=== PATIENT | male | born 1970 | race Hispanic/Latino ===

== ENCOUNTER 2017-11-19 18:12 | Inpatient (IN) | payer MEDICARE ==
[~2017-11-19] VITALS: Ht 188 cm; Wt 124.0 kg
[~2017-11-19 18:12] MED LIST: ACETAMINOPHEN325 M1 PO; ARTIFICIAL TEAR15 ML OP; ASPIRIN ENTERI325 MG PO; CRESTOR10 MG PO; CYMBALTA30 MG PO; DIFLUNISAL500 MG PO; FENOFIBRATE145 MG PO; GABAPEN; GABAPENTIN300 MG PO; HUMALOG100 UNIT/3 SQ; IBUPROFEN400 MG PO; LEVEMIR100 UNIT/1; LEVEMIR100 UNIT/1 SQ; METFORMIN HCL500 MG PO; METOPROLOL SUCC50 MG PO; NOVOLIN 70100 UNITS/; PROTONIX40 MG/ML PO; VALIUM5 MG PO; ZOFRAN ODT4 MG SL; antara PO
[2017-11-19] MEDS ORDERED: ASPIRIN 81 MG CHEW TAB PO ONE (19:15)
[2017-11-19] MEDS ORDERED: DIATRIZOATE MEGL/DIATRIZOA SOD 120 ML BTL PO ONE (19:19)
--- NOTE | 2017-11-19 19:42 | Diagnostic Imaging Report ---
EXAMINATION: CHEST 2 VIEWS INDICATION: Pneumonia and chest pain \S\ORDER PLACED BY MD \S\[id number] \S\0 \S\Y COMPARISON: None FINDINGS: PA and lateral views TUBES and LINES: None. LUNGS: Lungs are well inflated. Patchy airspace opacities remain in the right upper and left lower lobes, new since 01/24/2017. No pulmonary edema. PLEURA: No pleural effusion or pneumothorax. HEART AND MEDIASTINUM: The cardiomediastinal silhouette is unremarkable.. The thoracic aorta is unremarkable. The pulmonary arteries are normal in caliber. BONES AND SOFT TISSUES: Multilevel degenerative changes of the thoracic spine. Soft tissues are unremarkable. UPPER ABDOMEN: No free air under the diaphragm. Cholecystectomy clips. IMPRESSION: Multifocal consolidation suggestive of pneumonia, no present on 01/24/2017. Recommend further evaluation with chest x-ray in 4 weeks. Signed by: Dr. Francesca Zamarripa M.D. on 11/19/2017 7:38 PM
[2017-11-20] MEDS ORDERED: AZITHROMYCIN 500MG/SOD CHL 0.9% 250ML BAG IV SCH (00:30)
[2017-11-20 00:31] LABS: BASOPHILS % 0.4 % (0.0-1.0); EOSINOPHILS # (AUTO) 0.2 (0.0-0.4); EOSINOPHILS % 2.8 % (0.0-6.0); HEMATOCRIT 44.3 % (38.2-49.6); HEMOGLOBIN 14.8 g/dL (14.0-18.0); LYMPHOCYTES # (AUTO) 2.5 (1.0-3.2); LYMPHOCYTES % 32.3 % (18.0-39.1); MEAN CORPUSCULAR HEMOGLOBIN 30.1 pg (28-32); MEAN CORPUSCULAR HGB CONC 33.4 g/dL (31-35); MONOCYTES # (AUTO) 0.9 (0.2-0.8); NEUTROPHILS # (AUTO) 4.1 (2.1-6.9); NEUTROPHILS % 52.7 % (38.7-80.0); PLATELET COUNT 199 x10e3/uL (140-360); RED BLOOD COUNT 4.92 x10e6/uL (4.3-5.7); RED CELL DISTRIBUTION WIDTH 12.7 % (11.7-14.4)
[2017-11-20 00:43] LABS: INR 0.81; PROTHROMBIN TIME 11.6 seconds (11.9-14.5)
[2017-11-20 00:44] LABS: PARTIAL THROMBOPLASTIN TIME 26.9 seconds (23.8-35.5)
[2017-11-20] MEDS: CEFTRIAXONE SOD 1 GM VIAL IV SCH ×2 (00:45→12:54)
[2017-11-20] MEDS ORDERED: MAGNESIUM/ALUMINUM/SIMETHICONE 30 ML UDC PO ONE (00:45)
[2017-11-20 00:55] LABS: ALANINE AMINOTRANSFERASE 31 IU/L (0-55); ALBUMIN 4.1 g/dL (3.5-5.0); ALBUMIN/GLOBULIN RATIO 0.9 (0.8-2.0); ALKALINE PHOSPHATASE 104 IU/L (40-150); AMYLASE 115 U/L (25-125); BLOOD UREA NITROGEN 18 mg/dL (7-26); BUN/CREATININE RATIO 20 (6-25); CALCIUM 9.8 mg/dL (8.4-10.2); CARBON DIOXIDE 24 mmol/L (22-29); CHLORIDE 101 mmol/L (98-107); CREATINE KINASE 177 IU/L (30-200); CREATININE, SERUM 0.91 mg/dL (0.72-1.25); EST GLOMERULAR FILTRATION RATE > 60 ML/MIN (60-); GLUCOSE 173 mg/dL (74-118); LIPASE 45 U/L (8-78); SODIUM 135 mmol/L (136-145)
[2017-11-20] MEDS: AZITHROMYCIN 500MG/NS 250 ML 250 ML IV SCH (01:00)
[2017-11-20 01:01] LABS: TROPONIN I 0.007 ng/mL (0-0.300)
[2017-11-20] MEDS ORDERED: SODIUM CHLORIDE 0.9% 50ML 50 ML ONE (01:17)
[2017-11-20] MEDS ORDERED: IOPAMIDOL 370 MG/ML 200 ML INFUS..BTL INJ ONE (01:18)
[2017-11-20] MEDS ORDERED: MORPHINE SULFATE 2 MG/ML SYR ONE ×3 (01:47→16:10)
[2017-11-20] MEDS: ONDANSETRON HCL INJ 2 MG/ML VIAL IV PRN ×3 (01:52→16:20)
[2017-11-20] MEDS: MORPHINE SULFATE 4 MG/ML SYR IV PRN ×3 (01:52→16:19)
--- NOTE | 2017-11-20 01:53 | Diagnostic Imaging Report ---
EXAM: CT ABDOMEN AND PELVIS with IV CONTRAST DATE: 11/20/2017 12:05 AM Time stamp on Exam: 0120 hours INDICATION: Right-sided abdominal pain for 6 weeks COMPARISON: None TECHNIQUE: The abdomen and pelvis were scanned using a multidetector helical scanner. Coronal and sagittal reformations were obtained. Routine protocol performed. IV Contrast: 100 cc Isovue-370 Oral Contrast: Gastrografin CTDIvol has been reviewed. It is below the limits set by the Radiation Protocol Committee (RPC). FINDINGS: LOWER THORAX: No consolidations LIVER: No masses BILIARY: Cholecystectomy. No ductal dilation. SPLEEN: No masses PANCREAS: No masses ADRENALS: No nodules KIDNEYS: Symmetric perfusion. No enhancing masses. No hydronephrosis. GI TRACT: No distention, wall thickening or evidence of obstruction. Surgical changes of small bowel resection. Neither a normal nor abnormal appendix is identified. VESSELS: Inferior vena cava filter. 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 PERITONEUM/RETROPERITONEUM: No free air or fluid LYMPH NODES: No lymphadenopathy REPRODUCTIVE ORGANS: Unremarkable BLADDER: Unremarkable SOFT TISSUES: Small fat-containing right inguinal hernia. Superficial subcutaneous fat stranding and skin thickening with foci of air anterior abdomen consistent with injection sites. BONES: No suspicious bone lesions. IMPRESSION: No acute findings in the CT of the abdomen or pelvis. No bowel obstruction. Signed by: Dr. Yelitza Mckeon M.D. on 11/20/2017 1:49 AM
[2017-11-20] MEDS: SODIUM CHLORIDE 0.9% 1000ML 1,000 ML IV SCH ×2 (02:40→12:54)
[2017-11-20] MEDS ORDERED: DEXTROSE 50% SYRINGE 50 ML IV PRN (13:00)
[2017-11-20] MEDS ORDERED: INSULIN REGULAR, HUMAN 100 UNIT/1 ML 3ML VIAL ONE (13:13)
[2017-11-20] MEDS: INSULIN REGULAR, HUMAN 100 UNIT/1 ML 3ML VIAL SQ SCH ×2 (13:29→16:59)
[2017-11-20] MEDS: PANTOPRAZOLE SOD 40 MG TABEC PO SCH ×2 (16:15→18:00)
[2017-11-20] MEDS: GUAIFENESIN 600MG/DEXTROMETHORPHAN 30MG TABSR PO SCH (16:57)
[2017-11-20] MEDS: OSELTAMIVIR PHOSPHATE 75 MG CAP PO SCH (16:58)
[2017-11-20] MEDS: GABAPENTIN 300 MG CAP PO SCH (16:58)
[2017-11-20] MEDS: ENOXAPARIN SOD INJ 40 MG/0.4 ML SYR SC SCH (16:58)
[2017-11-20] MEDS: METOPROLOL SUCCINATE 50 MG TAB XL PO SCH (16:58)
[2017-11-20] MEDS: METFORMIN HCL 500 MG TAB PO SCH (16:58)
[2017-11-20 17:52] VITALS: BP 147/96
[2017-11-20] MEDS: ZIPRASIDONE 20 MG CAP PO SCH (18:00)
[2017-11-20 18:02] VITALS: BP 147/96
[2017-11-20] MEDS ORDERED: MORPHINE SULFATE 5 MG/ML VIAL IV PRN (18:15)
[2017-11-20 18:23] VITALS: BP 147/96
--- NOTE | 2017-11-20 18:25 | History and Physical ---
PRIMARY CARE PROVIDER: Dr. Duarte Rushing. CHIEF COMPLAINT: Malaise and productive hacking cough as well as some epigastric abdominal pain. HISTORY OF PRESENT ILLNESS: Mr. Carrillo is a 47 -year-old gentleman who has been having a cough for about a week now with some sputum production, some general malaise, some shortness of breath with exertion. He has also developed some epigastric and right flank pain that is superficial and palpable, possibly related to coughing. He denies any fever or chills. No weight loss. REVIEW OF SYSTEMS: Denies fever chills or weight loss. Denies sinus congestion or sore throat. Denies chest pain or palpitations. He has some shortness of breath and productive cough. He complains of some epigastric pain. No nausea, vomiting, diarrhea or melena. He denies dysuria but has some right flank pain. He denies rash or pruritus. He denies bleeding or bruising. Denies joint pain or swelling. Denies headache, vertigo or loss of consciousness. Denies depression, agitation, homicidal or suicidal ideation. PAST MEDICAL HISTORY: Significant for longstanding hypertension. He had a myocardial infarction and had angioplasty and stent placement for coronary artery disease in 2008. He has longstanding type 2 diabetes. He also has bipolar disorder. REGULAR MEDICATIONS: Aspirin daily. Fenofibrate 200 mg daily. Gabapentin 600 mg twice a day. Metformin 1000 mg twice a day. Metoprolol 100 mg twice a day. Protonix 40 mg before breakfast. Lantus or Levemir 70 units at bedtime and Humalog 8-12 units a.c. and nightly on sliding scale. Geodon 60 mg daily. PAST SURGICAL HISTORY: Coronary stent placement, only surgery he admits to. He denies any other surgery. ALLERGIES: NO KNOWN DRUG ALLERGIES. FAMILY HISTORY: Significant for hypertension and diabetes. SOCIAL HISTORY: . Citizen Of [place] is his primary language. He does not smoke, drink or use illegal drugs. He is generally independently functioning. PHYSICAL EXAM: PSYCHIATRIC: He is alert and oriented times 3 with normal mood and affect. CONSTITUTIONAL: He has a normal body habitus. Is in no acute distress. VITAL SIGNS: Blood pressure 131/75. Pulse 86 and regular. Respiratory rate 16. O2 sat 95%. Temperature 98.9. HEENT: Head is atraumatic. His eyes are anicteric with clear conjunctivae. Ears and nares are without erythema or discharge. Oropharynx is clear. NECK: Is supple with no mass or thyromegaly. LYMPHATIC SYSTEM: He has no palpable cervical, axillary or inguinal adenopathy. CARDIOVASCULAR: His heart has a regular rate and rhythm without murmur or extra heart sounds. He has no carotid bruit. He has no peripheral edema. Has palpable dorsal pedal pulses. RESPIRATORY: Clear to auscultation and percussion with normal respiratory effort. GASTROINTESTINAL: Abdomen is soft without organomegaly, masses or tenderness. Normal bowel sounds present. He has some tenderness in the right flank, but it is superficial, musculoskeletal probably from coughing. CUTANEOUS: His skin is warm and dry to touch with no rash or skin breakdown. MUSCULOSKELETAL: Joints are normal alignment without erythema or swelling. He has no calf tenderness. NEUROLOGIC: Exam is nonfocal with intact cranial nerves and no motor or sensory deficits. DIAGNOSTIC STUDIES: Chest x-ray shows bilateral upper lobe infiltrates and consolidations and is read as bilateral multifocal pneumonia. CT scan the abdomen is completely normal with no acute disease. Lactic acid level 13.2. His chemistry shows normal electrolytes. CO2 24. Creatinine 0.91. BUN 18. Glucose is 173. Calcium is 9.8. Amylase 115. Lipase 45. Transaminases, bilirubin and alk phos are normal. CBC shows a white count of 7.84 with a normal differential. Hemoglobin 14.8, hematocrit 44.3 and platelet count 199,000. IMPRESSION AND PLAN 1. Bilateral multifocal pneumonia. The patient has been started on IV Zithromax and Rocephin along with nebulizers and guaifenesin and p.o. Tamiflu. 2. For hypertension the patient will continue his metoprolol and aspirin. His hypertension is complicated by coronary artery disease. Will continue metoprolol and aspirin. 3. Type 2 diabetes. Will continue his metformin plus twice daily Levemir and sliding scale insulin. 4. For bipolar disorder will continue his Geodon and some Ativan at bedtime. 5. For prophylaxis, the patient will be on Lovenox for DVT prophylaxis and Protonix for GI prophylaxis. Job#: [id number]
[2017-11-20] MEDS ORDERED: FENOFIBRATE 145 MG TAB PO SCH (21:00)
[2017-11-20] MEDS: FENOFIBRATE 200 MG PO SCH (21:00)
[2017-11-20] MEDS ORDERED: LORAZEPAM INJ 2 MG/ML VIAL IV SCH (21:00)
[2017-11-20 21:01] VITALS: BP 130/83
[2017-11-20] MEDS: INSULIN DETEMIR 100 UNIT/ML PEN SQ SCH (21:50)
[2017-11-21] VITALS (8 sets, daily range): BP systolic 112–138; BP diastolic 66–83
[2017-11-21] MEDS: CEFTRIAXONE SOD 1 GM VIAL IV SCH ×2 (00:11→12:00)
[2017-11-21] MEDS: GUAIFENESIN 600MG/DEXTROMETHORPHAN 30MG TABSR PO SCH ×4 (00:11→17:21)
[2017-11-21] MEDS: AZITHROMYCIN 500MG/NS 250 ML 250 ML IV SCH (00:27)
[2017-11-21 03:01] LABS: BILIRUBIN,URINE NEGATIVE (NEGATIVE); KETONES,URINE NEGATIVE (NEGATIVE); LEUKOCYTE ESTERASE ,URINE NEGATIVE (NEGATIVE); NITRITE,URINE NEGATIVE (NEGATIVE); PROTEIN,URINE DIPSTICK NEGATIVE (NEGATIVE); URINE UROBILINOGEN 0.2 mg/dL (0.2 - 1)
[2017-11-21 03:02] LABS: CLARITY,URINE CLEAR (CLEAR); COLOR,URINE YELLOW (YELLOW)
[2017-11-21] MEDS: ONDANSETRON HCL INJ 2 MG/ML VIAL IV PRN (03:02)
[2017-11-21 03:10] LABS: WBC,URINE (MAN) 0-5 /HPF (0-5)
[2017-11-21 03:11] LABS: BACTERIA,URINE RARE /HPF; EPITHELIAL CELLS,URINE RARE /LPF
[2017-11-21] MEDS: SODIUM CHLORIDE 0.9% 1000ML 1,000 ML IV SCH (03:49)
--- NOTE | 2017-11-21 05:44 | Diagnostic Imaging Report ---
EXAM: CHEST SINGLE (PORTABLE), AP 1 view DATE: 11/21/2017 5:00 AM Time stamp on exam: 0513 hours INDICATION: Pneumonia COMPARISON: PA and lateral view of the chest November 19, 2017 FINDINGS: LINES/TUBES: None LUNGS: Improved aeration of the lungs. Persistent vascular congestion. PLEURA: No effusions or pneumothorax. HEART AND MEDIASTINUM: Stable appearance. BONES AND SOFT TISSUES: No acute findings. IMPRESSION: Resolving multifocal pneumonia. Signed by: Dr. Yelitza Mckeon M.D. on 11/21/2017 5:41 AM
[2017-11-21] MEDS: INSULIN REGULAR, HUMAN 100 UNIT/1 ML 3ML VIAL SQ SCH ×4 (07:30→21:30)
[2017-11-21] MEDS: PANTOPRAZOLE SOD 40 MG TABEC PO SCH (07:30)
[2017-11-21 07:38] LABS: BASOPHILS % 0.5 % (0.0-1.0); EOSINOPHILS # (AUTO) 0.1 (0.0-0.4); EOSINOPHILS % 1.3 % (0.0-6.0); HEMATOCRIT 43.8 % (38.2-49.6); HEMOGLOBIN 14.1 g/dL (14.0-18.0); LYMPHOCYTES # (AUTO) 1.7 (1.0-3.2); LYMPHOCYTES % 28.3 % (18.0-39.1); MEAN CORPUSCULAR HEMOGLOBIN 29.7 pg (28-32); MEAN CORPUSCULAR HGB CONC 32.2 g/dL (31-35); MEAN CORPUSCULAR VOLUME 92.4 fL (81-99); MONOCYTES # (AUTO) 0.6 (0.2-0.8); NEUTROPHILS # (AUTO) 3.6 (2.1-6.9); NEUTROPHILS % 59.4 % (38.7-80.0); PLATELET COUNT 205 x10e3/uL (140-360); RED BLOOD COUNT 4.74 x10e6/uL (4.3-5.7); RED CELL DISTRIBUTION WIDTH 12.7 % (11.7-14.4)
[2017-11-21 07:58] LABS: ALANINE AMINOTRANSFERASE 26 IU/L (0-55); ALBUMIN 3.3 g/dL (3.5-5.0); ALBUMIN/GLOBULIN RATIO 0.8 (0.8-2.0); ALKALINE PHOSPHATASE 90 IU/L (40-150); ANION GAP 13.5 mmol/L (8-16); BLOOD UREA NITROGEN 15 mg/dL (7-26); BUN/CREATININE RATIO 14 (6-25); CALCIUM 8.9 mg/dL (8.4-10.2); CARBON DIOXIDE 24 mmol/L (22-29); CHLORIDE 104 mmol/L (98-107); CREATININE, SERUM 1.07 mg/dL (0.72-1.25); EST GLOMERULAR FILTRATION RATE > 60 ML/MIN (60-); GLUCOSE 315 mg/dL (74-118); MAGNESIUM 1.9 MG/DL (1.3-2.1); POTASSIUM 4.5 mmol/L (3.5-5.1); SODIUM 137 mmol/L (136-145)
[2017-11-21] MEDS: METFORMIN HCL 500 MG TAB PO SCH ×2 (08:00→16:19)
[2017-11-21 08:19] LABS: THYROID STIMULATING HORMONE 0.864 uIU/mL (0.350-4.940)
[2017-11-21] MEDS: GABAPENTIN 300 MG CAP PO SCH ×2 (09:00→16:19)
[2017-11-21] MEDS: OSELTAMIVIR PHOSPHATE 75 MG CAP PO SCH ×2 (09:00→16:19)
[2017-11-21] MEDS: INSULIN DETEMIR 100 UNIT/ML PEN SQ SCH ×2 (09:00→21:30)
[2017-11-21] MEDS: ASPIRIN 325 MG TAB EC PO SCH (09:00)
[2017-11-21] MEDS: METOPROLOL SUCCINATE 50 MG TAB XL PO SCH ×2 (09:00→16:19)
[2017-11-21] MEDS: ZIPRASIDONE 20 MG CAP PO SCH (09:00)
[2017-11-21] MEDS: LORAZEPAM INJ 2 MG/ML VIAL IV PRN ×2 (09:36→21:58)
[2017-11-21] MEDS: ENOXAPARIN SOD INJ 40 MG/0.4 ML SYR SC SCH (16:20)
[2017-11-21] MEDS: FENOFIBRATE 200 MG PO SCH (21:00)
[2017-11-22] VITALS (8 sets, daily range): BP systolic 125–175; BP diastolic 6–104
[2017-11-22] MEDS: CEFTRIAXONE SOD 1 GM VIAL IV SCH ×2 (00:04→12:00)
[2017-11-22] MEDS: GUAIFENESIN 600MG/DEXTROMETHORPHAN 30MG TABSR PO SCH ×4 (00:04→17:33)
[2017-11-22] MEDS: AZITHROMYCIN 500MG/NS 250 ML 250 ML IV SCH (00:30)
[2017-11-22] MEDS ORDERED: LORAZEPAM INJ 2 MG/ML VIAL IV ONE (00:45)
[2017-11-22] MEDS ORDERED: PANTOPRAZOLE 40 MG 10ML VIAL IV STA (01:01)
[2017-11-22] MEDS: PANTOPRAZOLE 40 MG 10ML VIAL IV SCH ×2 (01:15→13:15)
[2017-11-22] MEDS: HYDROCODONE/APAP 5MG-325MG TAB PO PRN ×2 (02:30→15:54)
[2017-11-22] MEDS ORDERED: ZIPRASIDONE 20 MG VIAL IM STA (04:40)
[2017-11-22] MEDS: INSULIN REGULAR, HUMAN 100 UNIT/1 ML 3ML VIAL SQ SCH ×4 (07:30→21:21)
[2017-11-22] MEDS: INSULIN DETEMIR 100 UNIT/ML PEN SQ SCH ×2 (07:44→21:22)
[2017-11-22] MEDS: METFORMIN HCL 500 MG TAB PO SCH ×2 (08:00→17:00)
[2017-11-22 08:35] LABS: BASOPHILS % 0.5 % (0.0-1.0); EOSINOPHILS # (AUTO) 0.1 (0.0-0.4); EOSINOPHILS % 1.7 % (0.0-6.0); HEMATOCRIT 41.6 % (38.2-49.6); HEMOGLOBIN 13.8 g/dL (14.0-18.0); LYMPHOCYTES % 30.5 % (18.0-39.1); MEAN CORPUSCULAR HGB CONC 33.2 g/dL (31-35); MEAN CORPUSCULAR VOLUME 90.4 fL (81-99); MONOCYTES # (AUTO) 0.7 (0.2-0.8); MONOCYTES % 11.1 % (4.4-11.3); NEUTROPHILS # (AUTO) 3.7 (2.1-6.9); NEUTROPHILS % 55.6 % (38.7-80.0); PLATELET COUNT 179 x10e3/uL (140-360); RED CELL DISTRIBUTION WIDTH 12.4 % (11.7-14.4)
[2017-11-22] MEDS: ASPIRIN 325 MG TAB EC PO SCH (09:00)
[2017-11-22] MEDS: METOPROLOL SUCCINATE 50 MG TAB XL PO SCH ×2 (09:00→17:00)
[2017-11-22] MEDS: GABAPENTIN 300 MG CAP PO SCH ×2 (09:00→17:00)
[2017-11-22] MEDS: OSELTAMIVIR PHOSPHATE 75 MG CAP PO SCH ×2 (09:00→17:00)
[2017-11-22 10:57] LABS: BLOOD UREA NITROGEN 14 mg/dL (7-26); BUN/CREATININE RATIO 18 (6-25); CARBON DIOXIDE 24 mmol/L (22-29); CHLORIDE 103 mmol/L (98-107); CREATININE, SERUM 0.79 mg/dL (0.72-1.25); EST GLOMERULAR FILTRATION RATE > 60 ML/MIN (60-); GLUCOSE 202 mg/dL (74-118); SODIUM 137 mmol/L (136-145)
[2017-11-22] MEDS: LORAZEPAM INJ 2 MG/ML VIAL IV PRN ×2 (12:05→21:45)
[2017-11-22] MEDS: ONDANSETRON HCL INJ 2 MG/ML VIAL IV PRN ×2 (16:00→20:02)
[2017-11-22] MEDS: FLUTICASONE PROPIONATE NASAL SPRAY NS SCH (17:00)
[2017-11-22] MEDS: ENOXAPARIN SOD INJ 40 MG/0.4 ML SYR SC SCH (17:00)
[2017-11-22] MEDS: MORPHINE SULFATE 2 MG/ML SYR IV PRN (20:11)
[2017-11-22] MEDS: FENOFIBRATE 200 MG PO SCH (21:00)
[2017-11-22] MEDS: ZIPRASIDONE 20 MG CAP PO SCH (21:18)
[2017-11-23] VITALS (7 sets, daily range): BP systolic 124–184; BP diastolic 58–95
[2017-11-23] MEDS: GUAIFENESIN 600MG/DEXTROMETHORPHAN 30MG TABSR PO SCH ×4 (00:17→17:46)
[2017-11-23] MEDS: CEFTRIAXONE SOD 1 GM VIAL IV SCH ×2 (00:17→12:26)
[2017-11-23] MEDS: PANTOPRAZOLE 40 MG 10ML VIAL IV SCH ×2 (01:00→12:26)
[2017-11-23] MEDS: AZITHROMYCIN 500MG/NS 250 ML 250 ML IV SCH (01:36)
[2017-11-23 07:06] LABS: BASOPHILS # (AUTO) 0.1 (0.0-0.1); BASOPHILS % 0.7 % (0.0-1.0); EOSINOPHILS # (AUTO) 0.3 (0.0-0.4); EOSINOPHILS % 4.3 % (0.0-6.0); HEMATOCRIT 41.2 % (38.2-49.6); HEMOGLOBIN 13.8 g/dL (14.0-18.0); LYMPHOCYTES # (AUTO) 2.3 (1.0-3.2); LYMPHOCYTES % 34.5 % (18.0-39.1); MEAN CORPUSCULAR HEMOGLOBIN 30.6 pg (28-32); MEAN CORPUSCULAR HGB CONC 33.5 g/dL (31-35); MEAN CORPUSCULAR VOLUME 91.4 fL (81-99); MONOCYTES # (AUTO) 0.7 (0.2-0.8); MONOCYTES % 11.1 % (4.4-11.3); NEUTROPHILS # (AUTO) 3.3 (2.1-6.9); NEUTROPHILS % 48.8 % (38.7-80.0); PLATELET COUNT 187 x10e3/uL (140-360); RED BLOOD COUNT 4.51 x10e6/uL (4.3-5.7); RED CELL DISTRIBUTION WIDTH 12.5 % (11.7-14.4)
[2017-11-23 07:52] LABS: ANION GAP 14.4 mmol/L (8-16); BLOOD UREA NITROGEN 13 mg/dL (7-26); BUN/CREATININE RATIO 15 (6-25); CALCIUM 9.2 mg/dL (8.4-10.2); CARBON DIOXIDE 24 mmol/L (22-29); CHLORIDE 102 mmol/L (98-107); CREATININE, SERUM 0.85 mg/dL (0.72-1.25); EST GLOMERULAR FILTRATION RATE > 60 ML/MIN (60-); GLUCOSE 264 mg/dL (74-118); POTASSIUM 4.4 mmol/L (3.5-5.1); SODIUM 136 mmol/L (136-145)
[2017-11-23] MEDS: INSULIN REGULAR, HUMAN 100 UNIT/1 ML 3ML VIAL SQ SCH ×4 (08:00→21:30)
[2017-11-23] MEDS: METFORMIN HCL 500 MG TAB PO SCH ×2 (09:00→17:44)
[2017-11-23] MEDS: METOPROLOL SUCCINATE 50 MG TAB XL PO SCH ×2 (09:17→17:46)
[2017-11-23] MEDS: GABAPENTIN 300 MG CAP PO SCH ×2 (09:17→17:44)
[2017-11-23] MEDS: OSELTAMIVIR PHOSPHATE 75 MG CAP PO SCH ×2 (09:17→18:01)
[2017-11-23] MEDS: FLUTICASONE PROPIONATE NASAL SPRAY NS SCH ×2 (09:17→17:44)
[2017-11-23] MEDS: ASPIRIN 325 MG TAB EC PO SCH (09:17)
[2017-11-23] MEDS: INSULIN DETEMIR 100 UNIT/ML PEN SQ SCH ×2 (09:18→21:30)
[2017-11-23] MEDS: LORAZEPAM INJ 2 MG/ML VIAL IV PRN ×2 (10:45→21:30)
[2017-11-23] MEDS: MORPHINE SULFATE 2 MG/ML SYR IV PRN ×3 (10:45→20:32)
[2017-11-23] MEDS: ONDANSETRON HCL INJ 2 MG/ML VIAL IV PRN (10:45)
[2017-11-23] MEDS: ENOXAPARIN SOD INJ 40 MG/0.4 ML SYR SC SCH (17:46)
[2017-11-23] MEDS ORDERED: MIDAZOLAM HCL 2 MG/2 ML VIAL ONE (19:31)
[2017-11-23] MEDS ORDERED: FENTANYL CITRATE/PF 100MCG/2 ML INJ ONE (19:31)
[2017-11-23] MEDS: ZIPRASIDONE 20 MG CAP PO SCH (20:31)
[2017-11-23] MEDS: CLONAZEPAM 0.5 MG TAB PO PRN (20:32)
[2017-11-23] MEDS: FENOFIBRATE 200 MG PO SCH (21:00)
[2017-11-24] VITALS (7 sets, daily range): BP systolic 112–217; BP diastolic 67–97
[2017-11-24] MEDS: AZITHROMYCIN 500MG/NS 250 ML 250 ML IV SCH ×2 (00:35→23:28)
[2017-11-24] MEDS: PANTOPRAZOLE 40 MG 10ML VIAL IV SCH ×3 (00:35→23:38)
[2017-11-24] MEDS: CEFTRIAXONE SOD 1 GM VIAL IV SCH ×3 (00:35→23:28)
[2017-11-24] MEDS: GUAIFENESIN 600MG/DEXTROMETHORPHAN 30MG TABSR PO SCH ×7 (00:35→23:28)
[2017-11-24] MEDS: MORPHINE SULFATE 2 MG/ML SYR IV PRN ×3 (04:27→17:56)
[2017-11-24] MEDS: ALBUTEROL/IPRATROPIUM 3 ML NEB NEB SCH ×3 (06:00→18:00)
[2017-11-24] MEDS: LORAZEPAM INJ 2 MG/ML VIAL IV PRN ×2 (06:15→17:56)
[2017-11-24 06:45] LABS: BASOPHILS % 0.4 % (0.0-1.0); EOSINOPHILS # (AUTO) 0.3 (0.0-0.4); EOSINOPHILS % 3.8 % (0.0-6.0); HEMATOCRIT 41.5 % (38.2-49.6); LYMPHOCYTES # (AUTO) 2.2 (1.0-3.2); LYMPHOCYTES % 29.3 % (18.0-39.1); MEAN CORPUSCULAR HEMOGLOBIN 30.4 pg (28-32); MEAN CORPUSCULAR HGB CONC 33.7 g/dL (31-35); MONOCYTES # (AUTO) 0.7 (0.2-0.8); MONOCYTES % 9.8 % (4.4-11.3); NEUTROPHILS # (AUTO) 4.1 (2.1-6.9); PLATELET COUNT 192 x10e3/uL (140-360); RED BLOOD COUNT 4.61 x10e6/uL (4.3-5.7); RED CELL DISTRIBUTION WIDTH 12.4 % (11.7-14.4)
[2017-11-24 07:19] LABS: ANION GAP 14.3 mmol/L (8-16); BLOOD UREA NITROGEN 15 mg/dL (7-26); BUN/CREATININE RATIO 18 (6-25); CARBON DIOXIDE 22 mmol/L (22-29); CHLORIDE 103 mmol/L (98-107); CREATININE, SERUM 0.84 mg/dL (0.72-1.25); EST GLOMERULAR FILTRATION RATE > 60 ML/MIN (60-); GLUCOSE 239 mg/dL (74-118); POTASSIUM 4.3 mmol/L (3.5-5.1); SODIUM 135 mmol/L (136-145)
[2017-11-24] MEDS: INSULIN REGULAR, HUMAN 100 UNIT/1 ML 3ML VIAL SQ SCH ×4 (07:30→21:45)
[2017-11-24] MEDS: METFORMIN HCL 500 MG TAB PO SCH ×2 (08:00→15:45)
[2017-11-24] MEDS: ASPIRIN 325 MG TAB EC PO SCH (08:10)
[2017-11-24] MEDS: FLUTICASONE PROPIONATE NASAL SPRAY NS SCH ×2 (08:10→15:45)
[2017-11-24] MEDS: INSULIN DETEMIR 100 UNIT/ML PEN SQ SCH ×3 (08:10→21:45)
[2017-11-24] MEDS: OSELTAMIVIR PHOSPHATE 75 MG CAP PO SCH ×2 (09:00→15:45)
[2017-11-24] MEDS: GABAPENTIN 300 MG CAP PO SCH ×2 (09:00→15:45)
[2017-11-24] MEDS: METOPROLOL SUCCINATE 50 MG TAB XL PO SCH ×2 (09:00→17:40)
[2017-11-24] MEDS: ONDANSETRON HCL INJ 2 MG/ML VIAL IV PRN ×2 (09:49→17:56)
--- NOTE | 2017-11-24 14:58 | Operative Report ---
DATE OF PROCEDURE: November 24, 2017 REFERRING PHYSICIAN: Dr. Nancy Sibley. PROCEDURE PERFORMED: Esophagogastroduodenoscopy with biopsies. INDICATIONS FOR ESOPHAGOGASTRODUODENOSCOPY: Upper abdominal pain, history of heartburn indigestion. MEDICATION: Patient was done under MAC. Please see anesthesiologist's note. PROCEDURE: With the patient in the left lateral decubitus position, the flexible fiberoptic Olympus gastroscope was introduced into the esophagus under direct visualization without any difficulty. Grade 1 esophageal varices were noted without active bleeding or stigmata of recent hemorrhage. There was some patchy erythema and low-grade edema also noted in the esophagus. The scope was then advanced with ease into the stomach. Mucosa overlying the antrum and the body revealed some diffuse erythema and mild to moderate edema, and biopsies were obtained and sent to stain for H. pylori. The pylorus was of normal contour and shape, was intubated with ease, and the scope was advanced all the way to the 2nd portion of the duodenum. The scope was then withdrawn slowly. Mucosa overlying the proximal 2nd portion and the duodenal bulb appeared to be within normal limits. The scope was then withdrawn back into the stomach and retroflexed, and mucosa overlying the fundus and the cardia appeared to be within normal limits. The scope was then straightened out. Some focal varicosities were noted in the midbody of the stomach without active bleeding or stigmata of recent hemorrhage. The scope was then withdrawn. Patient tolerated the procedure well. IMPRESSION: 1. Distal esophagitis. 2. Grade 1 esophageal varices without active bleeding or stigmata of recent hemorrhage. 3. Gastritis biopsied. Biopsies sent to stain for H. pylori. 4. Focal varicosities, midbody greater curvature, without active bleeding or stigmata of recent hemorrhage. PLAN: Follow up histology. Continue PPI therapy. Patient will need a colonoscopy, which can be done on an outpatient basis as findings do not explain his right-sided abdominal pain. Job#: [id number] EV cc:NANCY SILBEY MD
[2017-11-24] MEDS: ENOXAPARIN SOD INJ 40 MG/0.4 ML SYR SC SCH (15:45)
[2017-11-24] MEDS: HYDROCODONE/APAP 5MG-325MG TAB PO PRN (15:48)
[2017-11-24] MEDS ORDERED: ACETAMIN/BUTALBITAL/CAFFEINE TAB PO PRN (16:00)
[2017-11-24] MEDS ORDERED: HALOPERIDOL LACTATE 5 MG/ML VIAL IM PRN (19:00)
[2017-11-24] MEDS ORDERED: CHLORPROMAZINE HCL 25 MG TAB PO PRN (19:00)
[2017-11-24] MEDS ORDERED: PROPOFOL IV EMULSION 10 MG/ML 20 ML VIAL ONE (19:45)
[2017-11-24] MEDS ORDERED: LIDOCAINE HCL 2% LOCAL INJ 5 ML SDV VIAL INJ ONE (19:45)
[2017-11-24] MEDS ORDERED: DEXAMETHASONE SOD PHOS INJ 4 MG/ML VIAL ONE (19:45)
[2017-11-24] MEDS ORDERED: ONDANSETRON HCL INJ 2 MG/ML VIAL ONE (19:45)
[2017-11-24] MEDS: FENOFIBRATE 200 MG PO SCH (20:38)
[2017-11-24] MEDS ORDERED: CHLORPROMAZINE HCL 25 MG TAB PO SCH (21:00)
[2017-11-24] MEDS: CLONAZEPAM 0.5 MG TAB PO PRN (21:45)
[2017-11-25] VITALS: BP 111/58
[2017-11-25] MEDS: MORPHINE SULFATE 2 MG/ML SYR IV PRN ×4 (03:40→16:32)
[2017-11-25] MEDS: ONDANSETRON HCL INJ 2 MG/ML VIAL IV PRN (03:40)
[2017-11-25 04:00] VITALS: BP 118/78
[2017-11-25] MEDS: GUAIFENESIN 600MG/DEXTROMETHORPHAN 30MG TABSR PO SCH ×2 (05:59→12:28)
[2017-11-25] MEDS: ALBUTEROL/IPRATROPIUM 3 ML NEB NEB SCH ×2 (07:30→12:00)
[2017-11-25 08:07] LABS: BASOPHILS # (AUTO) 0.1 (0.0-0.1); BASOPHILS % 0.7 % (0.0-1.0); EOSINOPHILS # (AUTO) 0.3 (0.0-0.4); EOSINOPHILS % 4.6 % (0.0-6.0); HEMATOCRIT 42.1 % (38.2-49.6); HEMOGLOBIN 14.3 g/dL (14.0-18.0); LYMPHOCYTES # (AUTO) 2.4 (1.0-3.2); LYMPHOCYTES % 35.2 % (18.0-39.1); MEAN CORPUSCULAR HEMOGLOBIN 30.5 pg (28-32); MEAN CORPUSCULAR VOLUME 89.8 fL (81-99); MONOCYTES # (AUTO) 0.7 (0.2-0.8); MONOCYTES % 10.9 % (4.4-11.3); NEUTROPHILS # (AUTO) 3.3 (2.1-6.9); PLATELET COUNT 178 x10e3/uL (140-360); RED BLOOD COUNT 4.69 x10e6/uL (4.3-5.7); RED CELL DISTRIBUTION WIDTH 12.2 % (11.7-14.4)
[2017-11-25 08:29] LABS: ANION GAP 17.1 mmol/L (8-16); BLOOD UREA NITROGEN 17 mg/dL (7-26); BUN/CREATININE RATIO 20 (6-25); CARBON DIOXIDE 21 mmol/L (22-29); CHLORIDE 100 mmol/L (98-107); CREATININE, SERUM 0.85 mg/dL (0.72-1.25); EST GLOMERULAR FILTRATION RATE > 60 ML/MIN (60-); GLUCOSE 208 mg/dL (74-118); MAGNESIUM 2.1 MG/DL (1.3-2.1); POTASSIUM 4.1 mmol/L (3.5-5.1); SODIUM 134 mmol/L (136-145)
[2017-11-25 08:32] VITALS: BP 163/93
[2017-11-25] MEDS: OSELTAMIVIR PHOSPHATE 75 MG CAP PO SCH ×2 (08:37→16:32)
[2017-11-25] MEDS: GABAPENTIN 300 MG CAP PO SCH ×2 (08:37→16:31)
[2017-11-25] MEDS: ASPIRIN 325 MG TAB EC PO SCH (08:37)
[2017-11-25] MEDS: METFORMIN HCL 500 MG TAB PO SCH ×2 (08:38→16:31)
[2017-11-25] MEDS: METOPROLOL SUCCINATE 50 MG TAB XL PO SCH ×2 (08:38→16:31)
[2017-11-25] MEDS: FLUTICASONE PROPIONATE NASAL SPRAY NS SCH ×2 (08:38→16:10)
[2017-11-25] MEDS: INSULIN REGULAR, HUMAN 100 UNIT/1 ML 3ML VIAL SQ SCH ×3 (08:39→16:32)
[2017-11-25] MEDS: INSULIN DETEMIR 100 UNIT/ML PEN SQ SCH (08:40)
[2017-11-25] MEDS ORDERED: TRIMETHOPRIM/SULFAMETHOXAZOLE 160-800 MG TAB PO SCH (09:00)
[2017-11-25 12:00] VITALS: BP 140/91
[2017-11-25] MEDS: CEFTRIAXONE SOD 1 GM VIAL IV SCH (12:28)
[2017-11-25] MEDS: PANTOPRAZOLE 40 MG 10ML VIAL IV SCH (12:28)
--- NOTE | 2017-11-25 14:10 | Consultation ---
DATE OF CONSULTATION: November 24, 2017 PSYCHIATRIC CONSULTATION REASON FOR CONSULTATION: To evaluate patient's mood. HISTORY OF PRESENTING ILLNESS: The patient is a 47-year-old male admitted to the hospital for pneumonia, sepsis, dehydration. Psychiatric consultation is called to evaluate patient's mood. As per the medical record, patient has history of hypertension, [place], diabetes, bipolar. Upon evaluation today, patient is found to be in the room with his . He is alert, awake and oriented to situation. Patient claims that he has been feeling increasingly depressed and anxious due to his medical issues and general life stressors. Patient claimed that he has taken multiple medications in the past for his schizophrenia and bipolar as well as panic disorder. He has taken Valium, Thorazine, Seroquel, Depakote, and in the past patient claimed that Geodon does not help him and Seroquel does not help him. He is somewhat fixated on certain medication such as Valium, and he is asking for IV Valium. Patient's states he feels hopeless and helpless at times but denies any suicidal ideation or homicidal ideation. Patient states that he has some anger management issues and gets easily agitated and Thorazine has been the only medication that helped him and requesting for this medication specifically. He reported to many sleep problems but denies appetite problem. He reports intermittent hallucinations but denies any at this time. Corroborated report from patient's , who agrees that patient has had a lot of anxiety issues and wants some medication to help her with this. PAST PSYCHIATRIC HISTORY: Patient reports history of bipolar, schizophrenia and panic disorder. He has never attempted suicide in the past. He currently does not drink alcohol. He has a history of cocaine use. FAMILY HISTORY: Patient states that his mother's side has history of bipolar and schizophrenia. SOCIAL HISTORY: Patient states he lives with his . MENTAL STATUS EXAMINATION: The patient is a middle-aged male. He is large built. His mood is anxious and depressed. Affect is blunt. Psychomotor state is anxious. He denies any suicidal or homicidal ideation. He denies any hallucinations. Thought process is concrete. He does not elicit paranoia or delusional thinking. Insight and judgment are fair. Memory is grossly intact. CURRENT MEDICATION 1. Zithromax. 2. . 3. Albuterol/ipratropium nebulized. 4. Aspirin. 5. Rocephin. 6. Klonopin 0.5 q.6 h. p.r.n. 7. Dextrose. 8. Enoxaparin. 9. Flonase. 10. Neurontin 600 mg p.o. b.i.d. 11. Perphenazine/dextromethorphan. 12. Jayess. 13. Insulin. 14. Ativan 0.5 mg IV push q.6 h. p.r.n. 15. Metformin. 16. Metoprolol. 17. Morphine. 18. Ondansetron. 19. Tamiflu. 20. Protonix. 21. Regular insulin. 22. Geodon 60 mg p.o. nightly. CURRENT LAB: WBC 7.37, RBC 4.61, hemoglobin 14, hematocrit 41.5, platelets 192. Sodium 135, potassium 4.3, chloride 103, CO2 22, BUN 15, creatinine 0.84. ASSESSMENT: Schizoaffective disorder, bipolar type. PLAN 1. To discontinue Geodon as per patient request. 2. Add Thorazine 50 mg p.o. nightly as per patient's request. 3. Add Thorazine 50 mg p.o. q.8 h. p.r.n. for agitation. 4. Continue with Klonopin 0.5 mg p.o. q.6 h. p.r.n. 5. Continue Ativan 0.5 mg IV push q.6 h. p.r.n. 6. Continue with Neurontin 600 mg p.o. b.i.d. 7. Supportive therapy. Thank you for this consultation. Dictated by: HEMALATHA Root Job#: [id number] EV
[2017-11-25] MEDS ORDERED: POTASSIUM CHLORIDE 20 MEQ TAB CR PO STA (14:42)
[2017-11-25] MEDS ORDERED: TYLENOL WITH C1 EACH PO (15:30)
[2017-11-25] MEDS ORDERED: CEFTIN PO (15:30)
[2017-11-25] MEDS ORDERED: AZITHROMYCIN500 MG PO (15:30)
[2017-11-25] MEDS ORDERED: MUCINEX DM ER1 EACH PO (15:30)
[2017-11-25] MEDS ORDERED: BACTRIM DS TAB1 EACH PO (15:30)
[2017-11-25] MEDS ORDERED: THORAZINE25 MG PO ×2 (15:30)
[2017-11-25] MEDS ORDERED: Fluticasone Propionate NS (15:30)
[2017-11-25] MEDS ORDERED: CLONAZEPAM0.5 MG PO (15:30)
[2017-11-25 16:04] VITALS: BP 142/81
[2017-11-25] MEDS: ENOXAPARIN SOD INJ 40 MG/0.4 ML SYR SC SCH (16:31)
--- NOTE | 2017-11-26 09:34 | Progress Note ---
DATE: November 25, 2017 PSYCHIATRIC PROGRESS NOTE Patient was found in the hallway. He said he is still feeling better. He is less angry. He took Thorazine and he tolerated it. Patient is less anxious. He denies any suicidal ideation. He denies any hallucinations. He is taking his medications. He denies any side effects. Patient is thinking. States that he will be following with us at outpatient psychiatry. He shook my hand and thanked me. ASSESSMENT: Schizoaffective disorder, bipolar type. PLAN: Continue with Neurontin. Continue with Ativan p.r.n. IV. Continue with Klonopin p.r.n. p.o. Continue with Thorazine scheduled. Continue with Thorazine p.r.n. Supportive care. Thank you for this consultation. DICTATED BY HEMALATHA DESIR Job#: [id number] RI
--- NOTE | 2017-11-26 12:38 | Discharge Summary ---
ADMISSION DIAGNOSES 1. Bilateral multifocal pneumonia. 2. Hypertension. 3. Type 2 diabetes. 4. . DISCHARGE DIAGNOSES 1. Bilateral multifocal pneumonia. 2. Hypertension. 3. Type 2 diabetes. 4. . 5. Methicillin-resistant Staphylococcus aureus of the abdominal wound. 6. Hyponatremia. 7. Gastrointestinal bleed. HISTORY: Patient has a history of hypertension, [place], and angioplasty with stent placement for coronary artery disease in 2008, bipolar, type 2 diabetes. Patient also says he had pancreatic cancer with some type of abdominal surgery which he does not know the name of. HOSPITAL COURSE: A 47-year-old male presented having cough with sputum production for about a week, shortness of breath with exertion. He also developed some epigastric and right flank pain that is superficial and palpable. He denies fever or chills. On admission, patient had a chest x-ray which showed multifocal consolidation suggestive of pneumonia. CT of the abdomen was done which showed no acute findings in the abdomen or pelvis. No bowel obstruction. Patient was started on IV Zithromax and Rocephin along with nebs, guaifenesin, and p.o. Tamiflu. Patient was started on metoprolol and aspirin for his hypertension and metformin and Levemir plus sliding-scale insulin for diabetes. For bipolar, he was initially started on Geodon and Ativan which worked well the first day and then the 2nd day he wanted more and each progressive day he wanted additional psych medications and pain medications. When the stool for blood came back positive, GI was consulted and EGD was performed with biopsy. The EGD found distal esophagitis, grade 1 esophageal varices without active bleeding. Biopsies sent for H. pylori. Per GI, continue PPI therapy. He will need a colonoscopy, but that can be done outpatient. As the patient continued to ask for more psych medication for anxiety and depression, Dr. Peter was consulted who discontinued the Geodon, added Thorazine, Klonopin, and Ativan p.r.n. Patient was happy with those medications at time of discharge. Prior to discharge, patient had an additional chest x-ray which showed resolving multifocal pneumonia. Blood cultures were negative. Urine cultures were negative. Patient complained of diarrhea and eventually said that he saw worms in his stool. After speaking to multiple nurses, they never diarrhea and never saw worms in the stool either. So, stool cultures were pending and ova and parasites were pending. Per lab, the Giardia is negative. Per GI, he is okay to discharge and follow up with him in about a week as he will need the biopsy results as well. For the MRSA in the wound, the patient was discharged home on Bactrim. At time of discharge, WBC was 6.81, hemoglobin of 14.3, and hematocrit of 42.1. Sodium of 134, potassium of 4.1. Vital signs stable and patient excited to go home. Patient sent home on antibiotics for pneumonia and MRSA, psych medications per psych team, and Tylenol 3 for pain. Patient is to follow up with GI in 1 to 2 weeks. Low-fat diet. No alcohol per GI request. Patient and present at discharge and understand the instructions. Dictated by Kiley Garcia NP NANCY HARRIS MD Job#: [id number]
== END 2017-11-25 17:38 | disposition home or self-care (01) | DRG 194 ==
LOC: ER 18:12 → ERHOLD 11-20 00:22 → MED/SURG2 11-20 17:27
PROVIDERS: ADMIT Internal Medicine; ATTEND Internal Medicine
PROC: 0DB78ZX Excision of Stomach, Pylorus, Via Natural or Artificial Opening Endoscopic, Diagnostic (ICD-10-PCS; principal; 2017-11-20)
DX: J18.8 Other pneumonia, unspecified organism (principal); E87.1 Hypo-osmolality and hyponatremia; I85.00 Esophageal varices without bleeding; I10 Essential (primary) hypertension; E11.9 Type 2 diabetes mellitus without complications; B95.62 Methicillin resistant Staphylococcus aureus infection as the cause of diseases classified elsewhere; F25.0 Schizoaffective disorder, bipolar type; I25.10 Atherosclerotic heart disease of native coronary artery without angina pectoris; K20.9 Esophagitis, unspecified; F41.0 Panic disorder [episodic paroxysmal anxiety]; S31.109D Unspecified open wound of abdominal wall, unspecified quadrant without penetration into peritoneal cavity, subsequent encounter; R13.10 Dysphagia, unspecified; Z79.4 Long term (current) use of insulin; Z95.5 Presence of coronary angioplasty implant and graft; Z79.82 Long term (current) use of aspirin; Z87.891 Personal history of nicotine dependence; I25.2 Old myocardial infarction
CPT/HCPCS: 36415; 43239; 71010; 71020; 74177; 80048; 80053; 81001; 82150; 82270; 82550; 82553; 82948; 83605; 83690; 83735; 83880; 84443; 84484; 85025; 85610; 85730; 86301; 87040; 87045; 87070; 87071; 87086; 87177; 87186; 87205; 87328; 88305; 88312; 93005; 94640; 99284; J0456; J0696; J1100; J1630; J1650; J2001; J2060; J2250; J2270; J2405; J3486; J7030; Q9963; Q9967

== ENCOUNTER 2018-07-18 11:25 | Inpatient (IN) | payer MEDICARE ==
[~2018-07-18] VITALS: Ht 188 cm; Wt 129.7 kg
[~2018-07-18 11:25] MED LIST changes: +AZITHROMYCIN500 MG PO; +BACTRIM DS TAB1 EACH PO; +CEFTIN PO; +CLONAZEPAM0.5 MG PO; +Fluticasone Propionate NS; +MUCINEX DM ER1 EACH PO; +THORAZINE25 MG PO; +TYLENOL WITH C1 EACH PO
[2018-07-18] MEDS ORDERED: ALBUTEROL/IPRATROPIUM 3 ML NEB NEB ONE (11:45)
[2018-07-18] MEDS ORDERED: METHYLPREDNISOLONE SOD SUCC 125 MG/2ML VIAL IV ONE (11:45)
--- NOTE | 2018-07-18 12:33 | Diagnostic Imaging Report ---
EXAM: XR CHEST 2 VIEWS DATE: 07/18/2018 11:39 AM INDICATION: Chest pain/shortness of breath COMPARISON: 11/21/2017, 11/19/2017, 10/18/2016 FINDINGS: Lines and Tubes: None Heart and Mediastinum: Accentuated by low lung lungs. Lungs and Pleura: Left superhilar and right infrahilar prominence, not significantly changed compared with 11/19/2017. Minimal basilar opacities. Ill-defined opacity right apex stable. Bones and Soft Tissues: No acute findings. IMPRESSION: 1. Hilar prominence similar to 2016 study. 2. Ill-defined opacity right apex, not seen [address] chest recommended. Signed by: Dr. Blake Contreras MD on 07/18/2018 12:29 PM
[2018-07-18 12:39] LABS: BASOPHILS % 0.1 % (0.0-1.0); EOSINOPHILS # (AUTO) 0.2 (0.0-0.4); EOSINOPHILS % 2.1 % (0.0-6.0); HEMATOCRIT 37.5 % (38.2-49.6); HEMOGLOBIN 12.1 g/dL (14.0-18.0); LYMPHOCYTES % 11.3 % (18.0-39.1); MEAN CORPUSCULAR HEMOGLOBIN 30.5 pg (28-32); MEAN CORPUSCULAR HGB CONC 32.3 g/dL (31-35); MEAN CORPUSCULAR VOLUME 94.5 fL (81-99); MONOCYTES # (AUTO) 1.2 (0.2-0.8); MONOCYTES % 13.4 % (4.4-11.3); NEUTROPHILS # (AUTO) 6.4 (2.1-6.9); NEUTROPHILS % 72.6 % (38.7-80.0); PLATELET COUNT 151 x10e3/uL (140-360); RED BLOOD COUNT 3.97 x10e6/uL (4.3-5.7); RED CELL DISTRIBUTION WIDTH 12.4 % (11.7-14.4)
[2018-07-18 12:48] LABS: INR 1.08; PARTIAL THROMBOPLASTIN TIME 32.5 seconds (23.8-35.5); PROTHROMBIN TIME 13.2 seconds (11.9-14.5)
[2018-07-18 12:55] LABS: ALANINE AMINOTRANSFERASE 35 IU/L (0-55); ALBUMIN 3.4 g/dL (3.5-5.0); ALBUMIN/GLOBULIN RATIO 0.9 (0.8-2.0); ALKALINE PHOSPHATASE 85 IU/L (40-150); ANION GAP 14.7 mmol/L (8-16); BLOOD UREA NITROGEN 17 mg/dL (7-26); BUN/CREATININE RATIO 13 (6-25); CALCIUM 9.2 mg/dL (8.4-10.2); CARBON DIOXIDE 23 mmol/L (22-29); CHLORIDE 101 mmol/L (98-107); CREATINE KINASE 534 IU/L (30-200); EST GLOMERULAR FILTRATION RATE 60 ML/MIN (60-); POTASSIUM 4.7 mmol/L (3.5-5.1); SODIUM 134 mmol/L (136-145)
[2018-07-18 13:05] LABS: GLUCOSE 521 mg/dL (74-118)
[2018-07-18] MEDS ORDERED: INSULIN REGULAR, HUMAN 100 UNIT/1 ML 3ML VIAL SQ ONE (13:30)
[2018-07-18] MEDS ORDERED: SODIUM CHLORIDE 0.9% 1000ML 1,000 ML IV ONE ×2 (13:30→14:45)
[2018-07-18 13:39] LABS: CLARITY,URINE CLEAR (CLEAR); LEUKOCYTE ESTERASE ,URINE NEGATIVE (NEGATIVE); NITRITE,URINE NEGATIVE (NEGATIVE); PROTEIN,URINE DIPSTICK NEGATIVE (NEGATIVE)
[2018-07-18 13:40] LABS: BILIRUBIN,URINE NEGATIVE (NEGATIVE); COLOR,URINE COLORLESS (YELLOW); KETONES,URINE NEGATIVE (NEGATIVE); URINE UROBILINOGEN 1 mg/dL (0.2 - 1)
[2018-07-18 13:56] LABS: EPITHELIAL CELLS,URINE RARE /LPF; RBC,URINE 0-5 /HPF (0-5); WBC,URINE (MAN) 0-5 /HPF (0-5)
--- NOTE | 2018-07-18 14:11 | Diagnostic Imaging Report ---
EXAM: CTA Chest WITH contrast / Pulmonary Embolus Study INDICATION: Rule out PE. Opacity right upper lobe. COMPARISON: Same day radiograph TECHNIQUE: Angiogram of the chest was obtained using a multidetector helical scanner after administration of IV contrast. Coronal and sagittal reformations were obtained. Pulmonary embolus protocol. IV CONTRAST: 100 mL Isovue-370 COMPLICATIONS: None RADIATION DOSE: Total DLP: 636 mGy*cm Estimated effective dose: (DLP x 0.015 x size factor) mSv CTDIvol has been reviewed. It is below the limits set by the Radiation Protocol Committee (RPC). Appropriate CT dose reduction techniques were utilized. FINDINGS: Lines and Tubes: None. Lower Neck: The visualized thyroid gland is grossly unremarkable with no suspicious or significant nodule identified. Heart and Great Vessels: The aorta and main pulmonary artery measure 33 and 27 mm. respectively. No pericardial effusion. Evaluation nondiagnostic for pulmonary embolus with Hounsfield units in pulmonary trunk 81. Lymph Nodes: Small mediastinal lymph nodes, not enlarged by size criteria. Motion limits hilar evaluation. Lungs: No pneumothorax or pleural effusion. Scattered bilateral nodular groundglass and alveolar opacities with superimposed nodular and tree-in-bud opacities. Trachea and central bronchi are unremarkable. Upper abdomen: Hepatic steatosis. Bones and Soft Tissues: DISH. IMPRESSION: 1. Exam nondiagnostic for pulmonary embolus evaluation. 2. Scattered nodular groundglass and alveolar opacities with superimposed smaller nodules and tree-in-bud opacities. Findings are most consistent with an acute multifocal infectious process, with mycobacterium not excluded. Clinical and laboratory correlation as well as short interval CT follow-up recommended. 3. Moderate hepatic steatosis. Signed by: Dr. Blake Contreras MD on 07/18/2018 2:08 PM
[2018-07-18] MEDS ORDERED: DEXTROSE 50% SYRINGE 50 ML IV PRN (16:00)
[2018-07-18] MEDS ORDERED: INSULIN REGULAR, HUMAN 100 UNIT/1 ML 3ML VIAL SQ NR (16:00)
[2018-07-18] MEDS: MORPHINE SULFATE 2 MG/ML SYR IV PRN ×2 (16:39→23:00)
[2018-07-18] MEDS: AZITHROMYCIN 500MG/SOD CHL 0.9% 250ML BAG IV SCH (16:39)
[2018-07-18] MEDS: SODIUM CHLORIDE 0.9% 1000ML 1,000 ML IV SCH (16:56)
[2018-07-18] MEDS: INSULIN REGULAR, HUMAN 100 UNIT/1 ML 3ML VIAL SQ SCH ×2 (16:56→21:30)
[2018-07-18 17:30] VITALS: BP 147/80
[2018-07-18] MEDS: CEFTRIAXONE SOD 1 GM VIAL IV SCH (17:40)
[2018-07-18 17:47] VITALS: BP 169/82
[2018-07-18] MEDS ORDERED: TRAZODONE HCL50 MG PO (19:44)
[2018-07-18] MEDS ORDERED: REPATHA (19:44)
[2018-07-18] MEDS ORDERED: SERTRALINE HCL100 MG PO (19:44)
[2018-07-18] MEDS ORDERED: QUETIAPINE FUM100 MG PO (19:44)
[2018-07-18] MEDS ORDERED: DIVALPROEX SOD500 M1 (19:44)
[2018-07-18] MEDS ORDERED: OLANZAPINE5 MG PO (19:44)
[2018-07-18] MEDS ORDERED: TOUJEO (19:44)
[2018-07-18 20:00] VITALS: BP 169/82
[2018-07-18 20:26] LABS: CREATINE KINASE MB 3.6 ng/mL (0-5.0)
[2018-07-18] MEDS: ALBUTEROL/IPRATROPIUM 3 ML NEB NEB SCH ×2 (20:31→23:38)
[2018-07-18 20:32] VITALS: BP 167/85
[2018-07-18] MEDS ORDERED: INSULIN DETEMIR 100 UNIT/ML PEN SQ STA (21:09)
[2018-07-19] VITALS (7 sets, daily range): BP systolic 126–187; BP diastolic 62–86
[2018-07-19] MEDS: SODIUM CHLORIDE 0.9% 1000ML 1,000 ML IV SCH ×3 (00:28→18:03)
[2018-07-19] MEDS ORDERED: IOPAMIDOL 370 MG/ML 200 ML INFUS..BTL INJ ONE (00:52)
[2018-07-19] MEDS ORDERED: SODIUM CHLORIDE 0.9% 50ML 50 ML ONE (00:52)
[2018-07-19] MEDS: TRAZODONE HCL 50 MG TAB PO SCH (01:00)
[2018-07-19 01:45] LABS: CREATINE KINASE 281 IU/L (30-200)
[2018-07-19] MEDS: CEFTRIAXONE SOD 1 GM VIAL IV SCH ×2 (04:00→18:00)
[2018-07-19] MEDS: MORPHINE SULFATE 2 MG/ML SYR IV PRN (05:51)
[2018-07-19] MEDS: ALBUTEROL/IPRATROPIUM 3 ML NEB NEB SCH ×5 (06:45→23:00)
[2018-07-19] MEDS: INSULIN REGULAR, HUMAN 100 UNIT/1 ML 3ML VIAL SQ SCH ×2 (07:30→13:15)
[2018-07-19] MEDS: GUAIFENESIN 600MG/DEXTROMETHORPHAN 30MG TABSR PO SCH ×4 (08:15→23:40)
[2018-07-19] MEDS ORDERED: QUETIAPINE FUMARATE 100 MG TAB PO SCH (09:00)
[2018-07-19 09:10] LABS: CREATINE KINASE MB 3.2 ng/mL (0-5.0)
[2018-07-19] MEDS: DEPAKOTE ER 500MG TAB(ONCE DAILY) PO SCH (10:10)
[2018-07-19] MEDS: METOPROLOL SUCCINATE 50 MG TAB XL PO SCH ×2 (10:10→18:01)
[2018-07-19] MEDS: PANTOPRAZOLE SOD 40 MG TABEC PO SCH (10:10)
[2018-07-19] MEDS: GABAPENTIN 300 MG CAP PO SCH ×2 (10:10→18:01)
[2018-07-19] MEDS: OLANZAPINE 5 MG TAB PO SCH (10:11)
[2018-07-19] MEDS: METFORMIN HCL 500 MG TAB PO SCH ×2 (10:11→18:01)
[2018-07-19 14:46] LABS: BASOPHILS % 0.1 % (0.0-1.0); EOSINOPHILS # (AUTO) 0.2 (0.0-0.4); EOSINOPHILS % 2.3 % (0.0-6.0); HEMATOCRIT 34.5 % (38.2-49.6); HEMOGLOBIN 11.3 g/dL (14.0-18.0); LYMPHOCYTES # (AUTO) 1.7 (1.0-3.2); MEAN CORPUSCULAR HEMOGLOBIN 31.3 pg (28-32); MEAN CORPUSCULAR HGB CONC 32.8 g/dL (31-35); MEAN CORPUSCULAR VOLUME 95.6 fL (81-99); MONOCYTES # (AUTO) 0.8 (0.2-0.8); MONOCYTES % 10.9 % (4.4-11.3); NEUTROPHILS # (AUTO) 4.5 (2.1-6.9); NEUTROPHILS % 62.3 % (38.7-80.0); PLATELET COUNT 161 x10e3/uL (140-360); RED BLOOD COUNT 3.61 x10e6/uL (4.3-5.7); RED CELL DISTRIBUTION WIDTH 12.3 % (11.7-14.4)
[2018-07-19 15:12] LABS: ANION GAP 17.2 mmol/L (8-16); BLOOD UREA NITROGEN 21 mg/dL (7-26); BUN/CREATININE RATIO 17 (6-25); CALCIUM 9.2 mg/dL (8.4-10.2); CARBON DIOXIDE 18 mmol/L (22-29); CHLORIDE 103 mmol/L (98-107); CHOL/HDL RATIO 3.4 (3.9-4.7); CHOLESTEROL 127 MD/DL (0-199); CREATININE, SERUM 1.21 mg/dL (0.72-1.25); EST GLOMERULAR FILTRATION RATE > 60 ML/MIN (60-); HDL CHOLESTEROL 37 MG/DL (40-60); LDL CHOLESTEROL 18 MG/DL (60-130); MAGNESIUM 2.1 MG/DL (1.3-2.1); POTASSIUM 4.2 mmol/L (3.5-5.1); SODIUM 134 mmol/L (136-145); TRIGLYCERIDES 358 MG/DL (0-149)
[2018-07-19 15:13] LABS: GLUCOSE 402 mg/dL (74-118)
--- NOTE | 2018-07-19 15:20 | Consultation ---
DATE OF CONSULTATION: July 19, 2018 ENDOCRINE CONSULTATION This is a patient of Dr. Sibley. Thank you very much for referring this patient. This is a 47-year-old gentleman who was referred to me for evaluation of uncontrolled diabetes mellitus. Patient tells me he is a known diabetic for almost 10 years. Has multiple complications related to diabetes including severe diabetic sensorimotor neuropathy. At home he takes about 60 units of Lantus at bedtime and Humalog about 20 to 30 with each meal depending upon his blood sugars. Patient came to the hospital with history of chest pain and shortness of breath. He has history of obstructive pulmonary disease, sleep apnea and COPD. Patient also has history of hypertension and history of pancreatitis in the past with cirrhosis in the past as well. He had multiple surgeries done in the past including appendectomy and cholecystectomy. PHYSICAL EXAMINATION: GENERAL: Today the patient is sleeping. It took me time to wake him up. He has wheezing. He is moderate to morbidly obese. VITAL SIGNS: His heart rate is around 78. Blood pressure 146/86 mmHg. HEENT: Examination essentially unremarkable. Thyroid is palpable. Clinically he looks near euthyroid. CHEST: Bilateral vesicular breathing. He has bilateral bronchospasm. CARDIAC: Both 1st and 2nd heart sounds. There is no 3rd or 4th heart sound. Ejection sound grade 2/6. EXTREMITIES: Patient has evidence of diabetic sensory neuropathy in both lower extremities and mild pedal edema. His blood sugars are in 450 to 500 range, and he is hypoxic. CLINICAL IMPRESSION: 1. Obstructive pulmonary disease. 2. Hypoxemia. 3. Morbid obesity. 4. Hypertension. 5. Diabetes mellitus type 2, uncontrolled with complications. 6. Chronic renal insufficiency. The plan at this time is to do a hemoglobin A1c, thyroid function test. Monitor his blood sugars closely and put him on a combination of the Humalog and the Lantus insulin. In case we are not able to control the diabetes with subcutaneous insulin, we might put him on insulin drip. Thanks for referring this patient. I will be following this patient with you. Job#: [id number] EV
[2018-07-19 15:50] LABS: FREE THYROXINE INDEX 1.796 (1.4-3.8); THYROID STIMULATING HORMONE 2.142 uIU/mL (0.350-4.940)
[2018-07-19] MEDS: AZITHROMYCIN 500MG/SOD CHL 0.9% 250ML BAG IV SCH (18:00)
[2018-07-19] MEDS: INSULIN LISPRO 100 UNIT/1 ML 3ML VIAL SQ SCH ×3 (18:00→21:30)
[2018-07-19] MEDS: ENOXAPARIN SOD INJ 40 MG/0.4 ML SYR SC SCH (18:02)
[2018-07-19] MEDS: INSULIN DETEMIR 100 UNIT/ML PEN SQ SCH (18:02)
[2018-07-19] MEDS ORDERED: SERTRALINE HCL 100 MG TAB PO SCH (21:00)
[2018-07-19] MEDS ORDERED: CHLORPROMAZINE HCL 25 MG TAB PO SCH (21:00)
[2018-07-20] VITALS (8 sets, daily range): BP systolic 140–180; BP diastolic 72–100
[2018-07-20] MEDS: TRAZODONE HCL 50 MG TAB PO SCH (00:12)
[2018-07-20] MEDS: CEFTRIAXONE SOD 1 GM VIAL IV SCH ×2 (04:49→17:53)
[2018-07-20] MEDS: GUAIFENESIN 600MG/DEXTROMETHORPHAN 30MG TABSR PO SCH ×3 (05:23→18:48)
[2018-07-20] MEDS: ALBUTEROL/IPRATROPIUM 3 ML NEB NEB SCH ×4 (06:00→19:48)
[2018-07-20] MEDS: MORPHINE SULFATE INJ 4 MG/ML INJ IV PRN ×2 (06:02→17:52)
[2018-07-20 06:11] LABS: BASOPHILS % 0.4 % (0.0-1.0); EOSINOPHILS # (AUTO) 0.2 (0.0-0.4); EOSINOPHILS % 3.4 % (0.0-6.0); HEMATOCRIT 37.7 % (38.2-49.6); HEMOGLOBIN 11.8 g/dL (14.0-18.0); LYMPHOCYTES # (AUTO) 1.5 (1.0-3.2); LYMPHOCYTES % 22.8 % (18.0-39.1); MEAN CORPUSCULAR HEMOGLOBIN 30.3 pg (28-32); MEAN CORPUSCULAR HGB CONC 31.3 g/dL (31-35); MEAN CORPUSCULAR VOLUME 96.7 fL (81-99); MONOCYTES # (AUTO) 0.6 (0.2-0.8); MONOCYTES % 8.8 % (4.4-11.3); NEUTROPHILS # (AUTO) 4.3 (2.1-6.9); PLATELET COUNT 133 x10e3/uL (140-360); RED CELL DISTRIBUTION WIDTH 12.3 % (11.7-14.4)
--- NOTE | 2018-07-20 06:27 | Diagnostic Imaging Report ---
EXAMINATION: CHEST SINGLE (PORTABLE) INDICATION: Pneumonia COMPARISON: CT of the chest on 07/18/2018 FINDINGS: TUBES and LINES: None. LUNGS: Lungs are not well inflated. There are bibasilar atelectasis. There is perihilar interstital opacities, consistent with interstitial edema. PLEURA: No pleural effusion or pneumothorax. HEART AND MEDIASTINUM: The cardiomediastinal silhouette is unremarkable. BONES AND SOFT TISSUES: No acute osseous lesion. Soft tissues are unremarkable. UPPER ABDOMEN: No free air under the diaphragm. IMPRESSION: 1. Findings are compatible with diffuse interstitial and mild alveolar opacities suggestive of fluid overload. 2. Areas of consolidation noted in CT are not conspicuous on today's exam Signed by: Dr. Jeovanny Rogers M.D. on 07/20/2018 6:24 AM
[2018-07-20 06:45] LABS: ANION GAP 14.7 mmol/L (8-16); BLOOD UREA NITROGEN 18 mg/dL (7-26); BUN/CREATININE RATIO 20 (6-25); CALCIUM 9.3 mg/dL (8.4-10.2); CARBON DIOXIDE 21 mmol/L (22-29); CHLORIDE 106 mmol/L (98-107); CREATININE, SERUM 0.89 mg/dL (0.72-1.25); EST GLOMERULAR FILTRATION RATE > 60 ML/MIN (60-); GLUCOSE 230 mg/dL (74-118); MAGNESIUM 2.1 MG/DL (1.3-2.1); POTASSIUM 4.7 mmol/L (3.5-5.1); SODIUM 137 mmol/L (136-145)
[2018-07-20 07:25] LABS: THYROID STIMULATING HORMONE 0.567 uIU/mL (0.350-4.940)
[2018-07-20] MEDS: GABAPENTIN 300 MG CAP PO SCH ×2 (08:47→17:52)
[2018-07-20] MEDS: METOPROLOL SUCCINATE 50 MG TAB XL PO SCH ×2 (08:47→17:52)
[2018-07-20] MEDS: INSULIN LISPRO 100 UNIT/1 ML 3ML VIAL SQ SCH ×7 (08:47→21:18)
[2018-07-20] MEDS: INSULIN DETEMIR 100 UNIT/ML PEN SQ SCH ×2 (08:47→17:52)
[2018-07-20] MEDS: DEPAKOTE ER 500MG TAB(ONCE DAILY) PO SCH (08:47)
[2018-07-20] MEDS: PANTOPRAZOLE SOD 40 MG TABEC PO SCH (08:47)
[2018-07-20] MEDS: OLANZAPINE 5 MG TAB PO SCH (08:47)
[2018-07-20] MEDS: METFORMIN HCL 500 MG TAB PO SCH ×2 (08:47→17:52)
[2018-07-20] MEDS ORDERED: LORAZEPAM 0.5 MG TAB PO PRN (15:45)
--- NOTE | 2018-07-20 16:33 | Consultation ---
DATE OF CONSULTATION: PSYCHIATRIC INITIAL EVALUATION REASON FOR CONSULTATION: For treatment and evaluation of patient's mood and anxiety. HISTORY OF PRESENTING ILLNESS: Patient is a 47-year-old male who is known to me from my clinic. He was admitted to [facility] because of a medical problem. Psychiatric consult is called to evaluate patient's mood and to adjust his psychiatric medications. Upon evaluation today patient states that he stopped coming to my clinic because he thought that the provider has left and he cannot follow up any longer. He states that he has not taken his psychotropic medications for a while. He has been feeling depressed and anxious. He denies feeling hopeless and helpless. He claims that he is having some problem with his sleep, but his appetite is fair. He denies any hallucinations and/or any suicidal ideation at this time. He would like to be put back on his medications. PAST PSYCHIATRIC HISTORY: Patient states that he has been diagnosed with bipolar disorder in the past. He has never attempted any suicide. He denies abusing any cocaine or alcohol. FAMILY HISTORY: Patient's mother suffers from some mood disorder. SOCIAL HISTORY: Patient lives with his family. ALLERGIES: NO KNOWN DRUG ALLERGIES. CURRENT LABS: WBC 6.71, hemoglobin 11.8, hematocrit 37.7, platelets 133. Sodium 137, potassium 4.7, chloride 106, carbon dioxide 21, BUN 18, creatinine 0.89. CURRENT MEDICATIONS 1. Albuterol. 2. Azithromycin. 3. Rocephin. 4. Thorazine 50 mg p.o. nightly. 5. Depakote 500 mg p.o. daily. 6. Lovenox. 7. Gabapentin 600 mg p.o. b.i.d. 8. Insulin. 9. Metformin. 10. Metoprolol. 11. Zyprexa. 12. Zoloft 100 mg p.o. nightly. 13. Trazodone 100 mg p.o. nightly. MENTAL STATUS EXAMINATION: Patient is a middle-aged male who is currently sitting on his bed. He is calm and cooperative. His mood is anxious and depressed with appropriate affect. He denies any suicidal or homicidal ideation at present. He denies any abnormal perceptions at present. No delusions are elicited. His thought process is goal-directed. His insight and judgment are fair. IMPRESSION AXIS I: Bipolar mood disorder, most recent episode depressed, moderate. PLAN 1. Discontinue Thorazine. 2. Discontinue Zyprexa. 3. Discontinue Zoloft. 4. Continue Depakote DR 500 mg p.o. daily. 5. Discontinue Seroquel 300 mg p.o. daily. 6. Add Seroquel 100 mg p.o. nightly. 7. Change trazodone to 50 mg p.o. nightly p.r.n. for insomnia. 8. Supportive therapy during his inpatient stay. We will continue to follow this patient during his inpatient stay for management of his psychiatric symptoms. Thank you very much for this consult. Job#: [id number] EV
[2018-07-20] MEDS: ENOXAPARIN SOD INJ 40 MG/0.4 ML SYR SC SCH (17:51)
[2018-07-20] MEDS: AZITHROMYCIN 500MG/SOD CHL 0.9% 250ML BAG IV SCH (17:52)
[2018-07-20] MEDS: QUETIAPINE FUMARATE 25 MG TAB PO SCH (20:41)
[2018-07-20] MEDS ORDERED: QUETIAPINE FUMARATE 100 MG TAB PO SCH (21:00)
[2018-07-20] MEDS ORDERED: TRAZODONE HCL 50 MG TAB PO PRN (21:00)
[2018-07-21] VITALS (8 sets, daily range): BP systolic 150–172; BP diastolic 76–95
[2018-07-21] MEDS: GUAIFENESIN 600MG/DEXTROMETHORPHAN 30MG TABSR PO SCH ×4 (01:22→17:45)
[2018-07-21] MEDS: MORPHINE SULFATE INJ 4 MG/ML INJ IV PRN ×3 (01:23→17:45)
[2018-07-21 03:35] LABS: BASOPHILS % 0.3 % (0.0-1.0); EOSINOPHILS # (AUTO) 0.4 (0.0-0.4); EOSINOPHILS % 4.8 % (0.0-6.0); HEMATOCRIT 34.3 % (38.2-49.6); HEMOGLOBIN 10.9 g/dL (14.0-18.0); LYMPHOCYTES # (AUTO) 1.8 (1.0-3.2); LYMPHOCYTES % 22.2 % (18.0-39.1); MEAN CORPUSCULAR HEMOGLOBIN 30.1 pg (28-32); MEAN CORPUSCULAR HGB CONC 31.8 g/dL (31-35); MEAN CORPUSCULAR VOLUME 94.8 fL (81-99); MONOCYTES # (AUTO) 0.7 (0.2-0.8); MONOCYTES % 9.1 % (4.4-11.3); NEUTROPHILS % 62.7 % (38.7-80.0); PLATELET COUNT 173 x10e3/uL (140-360); RED BLOOD COUNT 3.62 x10e6/uL (4.3-5.7)
[2018-07-21 03:54] LABS: ANION GAP 12.7 mmol/L (8-16); BLOOD UREA NITROGEN 16 mg/dL (7-26); BUN/CREATININE RATIO 20 (6-25); CALCIUM 8.7 mg/dL (8.4-10.2); CARBON DIOXIDE 24 mmol/L (22-29); CHLORIDE 101 mmol/L (98-107); CREATININE, SERUM 0.82 mg/dL (0.72-1.25); EST GLOMERULAR FILTRATION RATE > 60 ML/MIN (60-); GLUCOSE 259 mg/dL (74-118); MAGNESIUM 1.5 MG/DL (1.3-2.1); POTASSIUM 3.7 mmol/L (3.5-5.1); SODIUM 134 mmol/L (136-145)
[2018-07-21] MEDS: CEFTRIAXONE SOD 1 GM VIAL IV SCH (04:18)
[2018-07-21] MEDS ORDERED: DIPHENHYDRAMINE HCL 25 MG CAP PO ONE (06:15)
[2018-07-21] MEDS: INSULIN LISPRO 100 UNIT/1 ML 3ML VIAL SQ SCH ×7 (07:30→21:09)
[2018-07-21] MEDS: ALBUTEROL/IPRATROPIUM 3 ML NEB NEB SCH ×5 (07:35→22:42)
[2018-07-21] MEDS ORDERED: DIPHENHYDRAMINE HCL INJ 50 MG/ML VIAL IV PRN (08:30)
[2018-07-21] MEDS ORDERED: MORPHINE SULFATE INJ 4 MG/ML INJ IV PRN (08:30)
[2018-07-21] MEDS: DEPAKOTE ER 500MG TAB(ONCE DAILY) PO SCH (10:14)
[2018-07-21] MEDS: GABAPENTIN 300 MG CAP PO SCH ×2 (10:14→17:45)
[2018-07-21] MEDS: METHYLPREDNISOLONE SOD SUCC 40 MG/ML VIAL IV SCH ×2 (10:14→21:08)
[2018-07-21] MEDS: METOPROLOL SUCCINATE 50 MG TAB XL PO SCH ×2 (10:14→17:45)
[2018-07-21] MEDS: METFORMIN HCL 500 MG TAB PO SCH ×2 (10:14→17:45)
[2018-07-21] MEDS: PANTOPRAZOLE SOD 40 MG TABEC PO SCH (10:14)
[2018-07-21] MEDS: NIFEDIPINE CR 30 MG TAB PO SCH (10:14)
[2018-07-21] MEDS: LEVOFLOXACIN 500MG/D5W 100ML 100 ML IV SCH (10:14)
[2018-07-21] MEDS: INSULIN DETEMIR 100 UNIT/ML PEN SQ SCH (10:14)
[2018-07-21] MEDS: LORAZEPAM INJ 2 MG/ML VIAL IV PRN ×2 (10:26→22:37)
[2018-07-21] MEDS: QUETIAPINE FUMARATE 25 MG TAB PO PRN ×2 (10:33→14:42)
[2018-07-21] MEDS ORDERED: INSULIN DETEMIR 100 UNIT/ML PEN SQ SCH (17:00)
[2018-07-21] MEDS: ENOXAPARIN SOD INJ 40 MG/0.4 ML SYR SC SCH (17:45)
[2018-07-21] MEDS: QUETIAPINE FUMARATE 25 MG TAB PO SCH (21:08)
[2018-07-22] VITALS (9 sets, daily range): BP systolic 147–170; BP diastolic 77–99
[2018-07-22] MEDS: QUETIAPINE FUMARATE 25 MG TAB PO PRN ×2 (00:22→17:40)
[2018-07-22] MEDS ORDERED: INSULIN LISPRO 100 UNIT/1 ML 3ML VIAL SQ SCH ×3 (02:45→07:30)
[2018-07-22] MEDS ORDERED: INSULIN LISPRO 100 UNIT/1 ML 3ML VIAL SQ ONE (03:00)
[2018-07-22] MEDS ORDERED: DEXTROSE 50% SYRINGE 50 ML IV PRN ×2 (03:00→03:30)
[2018-07-22 04:10] LABS: BASOPHILS % 0.4 % (0.0-1.0); HEMATOCRIT 36.8 % (38.2-49.6); HEMOGLOBIN 11.9 g/dL (14.0-18.0); LYMPHOCYTES # (AUTO) 1.1 (1.0-3.2); LYMPHOCYTES % 13.5 % (18.0-39.1); MEAN CORPUSCULAR HEMOGLOBIN 30.2 pg (28-32); MEAN CORPUSCULAR HGB CONC 32.3 g/dL (31-35); MEAN CORPUSCULAR VOLUME 93.4 fL (81-99); MONOCYTES # (AUTO) 0.3 (0.2-0.8); MONOCYTES % 3.9 % (4.4-11.3); NEUTROPHILS # (AUTO) 6.8 (2.1-6.9); NEUTROPHILS % 80.8 % (38.7-80.0); PLATELET COUNT 187 x10e3/uL (140-360); RED BLOOD COUNT 3.94 x10e6/uL (4.3-5.7); RED CELL DISTRIBUTION WIDTH 11.9 % (11.7-14.4)
[2018-07-22 04:27] LABS: ANION GAP 16.8 mmol/L (8-16); BLOOD UREA NITROGEN 14 mg/dL (7-26); BUN/CREATININE RATIO 14 (6-25); CARBON DIOXIDE 23 mmol/L (22-29); CHLORIDE 98 mmol/L (98-107); CREATININE, SERUM 0.99 mg/dL (0.72-1.25); EST GLOMERULAR FILTRATION RATE > 60 ML/MIN (60-); MAGNESIUM 1.9 MG/DL (1.3-2.1); POTASSIUM 4.8 mmol/L (3.5-5.1); SODIUM 133 mmol/L (136-145)
[2018-07-22 04:31] LABS: GLUCOSE 484 mg/dL (74-118)
[2018-07-22] MEDS: INSULIN LISPRO 100 UNIT/1 ML 3ML VIAL SQ SCH ×8 (04:58→21:00)
[2018-07-22] MEDS: GUAIFENESIN 600MG/DEXTROMETHORPHAN 30MG TABSR PO SCH ×4 (06:46→17:14)
[2018-07-22] MEDS: ALBUTEROL/IPRATROPIUM 3 ML NEB NEB SCH ×5 (07:35→23:10)
[2018-07-22] MEDS: METFORMIN HCL 500 MG TAB PO SCH ×2 (08:12→17:14)
[2018-07-22] MEDS: PANTOPRAZOLE SOD 40 MG TABEC PO SCH (08:12)
[2018-07-22] MEDS: GABAPENTIN 300 MG CAP PO SCH ×2 (08:13→17:14)
[2018-07-22] MEDS: METHYLPREDNISOLONE SOD SUCC 40 MG/ML VIAL IV SCH ×2 (08:13→20:55)
[2018-07-22] MEDS: LEVOFLOXACIN 500MG/D5W 100ML 100 ML IV SCH (08:13)
[2018-07-22] MEDS: DEPAKOTE ER 500MG TAB(ONCE DAILY) PO SCH (08:13)
[2018-07-22] MEDS: METOPROLOL SUCCINATE 50 MG TAB XL PO SCH ×2 (08:14→17:14)
[2018-07-22] MEDS: NIFEDIPINE CR 30 MG TAB PO SCH (08:14)
[2018-07-22] MEDS ORDERED: INSULIN DETEMIR 100 UNIT/ML PEN SQ SCH (09:00)
[2018-07-22] MEDS: LORAZEPAM INJ 2 MG/ML VIAL IV PRN (10:47)
[2018-07-22] MEDS: ACETYLCYSTEINE 20% INHAL SOLN 30 ML VIAL INH SCH ×4 (11:00→23:10)
[2018-07-22] MEDS ORDERED: DIPHENHYDRAMINE HCL 25 MG CAP PO PRN (17:00)
[2018-07-22] MEDS: ENOXAPARIN SOD INJ 40 MG/0.4 ML SYR SC SCH (17:14)
[2018-07-22] MEDS: INSULIN DETEMIR 100 UNIT/ML PEN SQ SCH (17:24)
[2018-07-22] MEDS: DIPHENHYDRAMINE HCL ELIX 12.5 MG/5 ML UDC PO PRN (17:25)
[2018-07-22] MEDS ORDERED: CLONIDINE HCL 0.1 MG TAB PO PRN (17:45)
[2018-07-22] MEDS: MORPHINE SULFATE INJ 4 MG/ML INJ IV PRN (20:20)
[2018-07-22] MEDS: QUETIAPINE FUMARATE 25 MG TAB PO SCH (20:55)
[2018-07-23] VITALS: BP 151/91
[2018-07-23] MEDS: LORAZEPAM INJ 2 MG/ML VIAL IV PRN ×3 (00:33→18:48)
[2018-07-23] MEDS: ACETYLCYSTEINE 20% INHAL SOLN 30 ML VIAL INH SCH ×6 (03:07→23:18)
[2018-07-23] MEDS: ALBUTEROL/IPRATROPIUM 3 ML NEB NEB SCH ×6 (03:07→23:18)
[2018-07-23 04:00] VITALS: BP 152/94
[2018-07-23 04:59] LABS: BASOPHILS # (AUTO) 0.1 (0.0-0.1); BASOPHILS % 0.7 % (0.0-1.0); EOSINOPHILS % 0.2 % (0.0-6.0); HEMATOCRIT 36.7 % (38.2-49.6); HEMOGLOBIN 11.7 g/dL (14.0-18.0); LYMPHOCYTES # (AUTO) 1.9 (1.0-3.2); LYMPHOCYTES % 15.6 % (18.0-39.1); MEAN CORPUSCULAR HEMOGLOBIN 30.2 pg (28-32); MEAN CORPUSCULAR HGB CONC 31.9 g/dL (31-35); MEAN CORPUSCULAR VOLUME 94.8 fL (81-99); MONOCYTES # (AUTO) 0.7 (0.2-0.8); MONOCYTES % 5.7 % (4.4-11.3); NEUTROPHILS # (AUTO) 8.8 (2.1-6.9); NEUTROPHILS % 72.3 % (38.7-80.0); PLATELET COUNT 222 x10e3/uL (140-360); RED BLOOD COUNT 3.87 x10e6/uL (4.3-5.7); RED CELL DISTRIBUTION WIDTH 12.1 % (11.7-14.4)
[2018-07-23 05:25] LABS: ANION GAP 17.7 mmol/L (8-16); BLOOD UREA NITROGEN 21 mg/dL (7-26); BUN/CREATININE RATIO 21 (6-25); CARBON DIOXIDE 24 mmol/L (22-29); CHLORIDE 99 mmol/L (98-107); CREATININE, SERUM 0.98 mg/dL (0.72-1.25); EST GLOMERULAR FILTRATION RATE > 60 ML/MIN (60-); MAGNESIUM 1.7 MG/DL (1.3-2.1); POTASSIUM 4.7 mmol/L (3.5-5.1); SODIUM 136 mmol/L (136-145)
[2018-07-23 05:39] LABS: GLUCOSE 486 mg/dL (74-118)
[2018-07-23] MEDS: INSULIN LISPRO 100 UNIT/1 ML 3ML VIAL SQ SCH ×7 (05:49→21:00)
[2018-07-23] MEDS: GUAIFENESIN 600MG/DEXTROMETHORPHAN 30MG TABSR PO SCH ×4 (05:50→17:30)
[2018-07-23 08:00] VITALS: BP 186/97
[2018-07-23] MEDS: METFORMIN HCL 500 MG TAB PO SCH ×2 (08:00→17:00)
[2018-07-23] MEDS: LEVOFLOXACIN 500MG/D5W 100ML 100 ML IV SCH (08:00)
[2018-07-23] MEDS ORDERED: MORPHINE SULFATE 2 MG/ML SYR ONE (08:19)
[2018-07-23] MEDS: MORPHINE SULFATE 2 MG/ML SYR IV PRN ×2 (08:25→15:46)
[2018-07-23] MEDS: METOPROLOL SUCCINATE 50 MG TAB XL PO SCH ×2 (08:30→17:00)
[2018-07-23] MEDS: PANTOPRAZOLE SOD 40 MG TABEC PO SCH (08:30)
[2018-07-23 08:35] VITALS: BP 186/97
[2018-07-23] MEDS: DEPAKOTE ER 500MG TAB(ONCE DAILY) PO SCH (10:00)
[2018-07-23] MEDS: GABAPENTIN 300 MG CAP PO SCH ×2 (10:00→17:00)
[2018-07-23] MEDS: NIFEDIPINE CR 30 MG TAB PO SCH (10:00)
[2018-07-23] MEDS: INSULIN DETEMIR 100 UNIT/ML PEN SQ SCH ×2 (10:00→21:00)
[2018-07-23] MEDS: QUETIAPINE FUMARATE 25 MG TAB PO PRN (11:16)
[2018-07-23] MEDS ORDERED: CLONAZEPAM 0.5 MG TAB PO PRN (12:00)
--- NOTE | 2018-07-23 12:21 | Progress Note ---
DATE: July 23, 2018 PSYCHIATRIC PROGRESS NOTE SUBJECTIVE: Patient evaluated and events noted. INTERVAL HISTORY: Patient is currently sitting on his bed. He is alert, awake and oriented to situation. He continues to feel depressed and anxious. He states that he is not able to sleep very well. His appetite is fair. He denies any hallucinations and suicidal ideations. He is requesting to increase his medications. DIAGNOSIS: [place] I: Bipolar 1 disorder, most recent episode depressed, moderate. PLAN 1. Increase Seroquel to 200 mg p.o. at bedtime. 2. Reduce p.r.n. Ativan to 0.5 mg but increase the frequency. 3. Continue Seroquel 50 mg p.o. q.6 p.r.n. 4. Add Klonopin 0.5 mg p.o. t.i.d. p.r.n. for anxiety. 5. Supportive therapy during this inpatient stay. Job#: [id number] RUBIN
[2018-07-23 16:00] VITALS: BP 152/81
[2018-07-23] MEDS: ENOXAPARIN SOD INJ 40 MG/0.4 ML SYR SC SCH (17:00)
[2018-07-23 20:00] VITALS: BP 160/83
[2018-07-23] MEDS: QUETIAPINE FUMARATE 100 MG TAB PO SCH (21:00)
[2018-07-23] MEDS ORDERED: QUETIAPINE FUMARATE 25 MG TAB PO SCH (21:00)
[2018-07-24] VITALS (7 sets, daily range): BP systolic 112–163; BP diastolic 65–100
[2018-07-24] MEDS: GUAIFENESIN 600MG/DEXTROMETHORPHAN 30MG TABSR PO SCH ×5 (00:10→23:14)
[2018-07-24] MEDS: MORPHINE SULFATE 2 MG/ML SYR IV PRN ×3 (02:17→21:02)
[2018-07-24] MEDS: ACETYLCYSTEINE 20% INHAL SOLN 30 ML VIAL INH SCH ×8 (03:07→23:08)
[2018-07-24] MEDS: ALBUTEROL/IPRATROPIUM 3 ML NEB NEB SCH ×6 (03:07→23:08)
[2018-07-24 04:51] LABS: BASOPHILS % 0.2 % (0.0-1.0); EOSINOPHILS # (AUTO) 0.3 (0.0-0.4); EOSINOPHILS % 2.5 % (0.0-6.0); HEMATOCRIT 40.8 % (38.2-49.6); HEMOGLOBIN 12.4 g/dL (14.0-18.0); LYMPHOCYTES # (AUTO) 3.2 (1.0-3.2); LYMPHOCYTES % 29.3 % (18.0-39.1); MEAN CORPUSCULAR HEMOGLOBIN 30.4 pg (28-32); MEAN CORPUSCULAR HGB CONC 30.4 g/dL (31-35); MONOCYTES # (AUTO) 1.2 (0.2-0.8); MONOCYTES % 10.9 % (4.4-11.3); NEUTROPHILS # (AUTO) 5.4 (2.1-6.9); NEUTROPHILS % 49.2 % (38.7-80.0); PLATELET COUNT 227 x10e3/uL (140-360); RED BLOOD COUNT 4.08 x10e6/uL (4.3-5.7)
[2018-07-24 05:21] LABS: ANION GAP 19.1 mmol/L (8-16); BLOOD UREA NITROGEN 22 mg/dL (7-26); BUN/CREATININE RATIO 21 (6-25); CALCIUM 9.6 mg/dL (8.4-10.2); CARBON DIOXIDE 24 mmol/L (22-29); CHLORIDE 98 mmol/L (98-107); CREATININE, SERUM 1.05 mg/dL (0.72-1.25); EST GLOMERULAR FILTRATION RATE > 60 ML/MIN (60-); MAGNESIUM 1.8 MG/DL (1.3-2.1); POTASSIUM 4.1 mmol/L (3.5-5.1); SODIUM 137 mmol/L (136-145)
[2018-07-24 05:28] LABS: GLUCOSE 484 mg/dL (74-118)
[2018-07-24 06:52] LABS: LYMPHOCYTES % (MANUAL) 30 % (19-48); METAMYELOCYTES % (MANUAL) 1 % (0-0); MONOCYTES % (MANUAL) 7 % (3.4-9.0); NEUTROPHILS % (MANUAL) 62 % (40-74); PLATELET ESTIMATE ADEQUATE; PLATELET MORPHOLOGY COMMENT NORMAL; RBC MORPHOLOGY COMMENT NORMAL
[2018-07-24] MEDS: INSULIN LISPRO 100 UNIT/1 ML 3ML VIAL SQ SCH ×7 (07:30→21:09)
[2018-07-24] MEDS: PANTOPRAZOLE SOD 40 MG TABEC PO SCH (07:30)
--- NOTE | 2018-07-24 08:52 | Diagnostic Imaging Report ---
EXAMINATION: CHEST SINGLE (PORTABLE) INDICATION: \S\PNA. Hyperglycemia. COMPARISON: Chest x-ray 07/20/2018 FINDINGS: AP view TUBES and LINES: None. LUNGS: Lungs are not well inflated. Lungs are clear. There is no evidence of pneumonia or pulmonary edema. PLEURA: No pleural effusion or pneumothorax. HEART AND MEDIASTINUM: The cardiomediastinal silhouette is unremarkable. BONES AND SOFT TISSUES: No acute osseous lesion. Soft tissues are unremarkable. UPPER ABDOMEN: No free air under the diaphragm. IMPRESSION: No acute thoracic abnormality. Signed by: Dr. Roe Sanchez M.D. on 07/24/2018 8:48 AM
[2018-07-24] MEDS ORDERED: METHYLPREDNISOLONE SOD SUCC 40 MG/ML VIAL IV SCH (09:00)
[2018-07-24] MEDS: METFORMIN HCL 500 MG TAB PO SCH ×2 (09:29→16:52)
[2018-07-24] MEDS: GABAPENTIN 300 MG CAP PO SCH ×2 (09:29→16:52)
[2018-07-24] MEDS: NIFEDIPINE CR 30 MG TAB PO SCH (09:29)
[2018-07-24] MEDS: LEVOFLOXACIN 500MG/D5W 100ML 100 ML IV SCH (09:29)
[2018-07-24] MEDS: DEPAKOTE ER 500MG TAB(ONCE DAILY) PO SCH (09:29)
[2018-07-24] MEDS: METOPROLOL SUCCINATE 50 MG TAB XL PO SCH ×2 (09:30→16:52)
[2018-07-24] MEDS: INSULIN DETEMIR 100 UNIT/ML PEN SQ SCH ×2 (09:34→21:00)
[2018-07-24] MEDS: LORAZEPAM INJ 2 MG/ML VIAL IV PRN (16:17)
[2018-07-24] MEDS: ENOXAPARIN SOD INJ 40 MG/0.4 ML SYR SC SCH (16:52)
[2018-07-24] MEDS ORDERED: ACETAMIN/BUTALBITAL/CAFFEINE TAB PO PRN (19:15)
[2018-07-24] MEDS: QUETIAPINE FUMARATE 100 MG TAB PO SCH (21:00)
[2018-07-24] MEDS: DIPHENHYDRAMINE HCL ELIX 12.5 MG/5 ML UDC PO PRN (21:02)
[2018-07-25] VITALS: BP 124/81
[2018-07-25] MEDS: ALBUTEROL/IPRATROPIUM 3 ML NEB NEB SCH ×3 (03:10→11:17)
[2018-07-25] MEDS: ACETYLCYSTEINE 20% INHAL SOLN 30 ML VIAL INH SCH ×3 (03:10→11:17)
[2018-07-25 04:00] VITALS: BP 166/95
[2018-07-25] MEDS: GUAIFENESIN 600MG/DEXTROMETHORPHAN 30MG TABSR PO SCH ×2 (05:43→12:38)
[2018-07-25] MEDS: INSULIN LISPRO 100 UNIT/1 ML 3ML VIAL SQ SCH ×4 (07:30→12:38)
[2018-07-25 08:00] VITALS: BP 173/94
[2018-07-25] MEDS: MORPHINE SULFATE 2 MG/ML SYR IV PRN (08:04)
[2018-07-25] MEDS: GABAPENTIN 300 MG CAP PO SCH (08:16)
[2018-07-25] MEDS: PANTOPRAZOLE SOD 40 MG TABEC PO SCH (08:16)
[2018-07-25] MEDS: LEVOFLOXACIN 500MG/D5W 100ML 100 ML IV SCH (08:16)
[2018-07-25] MEDS: DEPAKOTE ER 500MG TAB(ONCE DAILY) PO SCH (08:16)
[2018-07-25] MEDS: METFORMIN HCL 500 MG TAB PO SCH (08:16)
[2018-07-25] MEDS ORDERED: PREDNISONE 10 MG TAB PO SCH (09:00)
[2018-07-25] MEDS ORDERED: SEROQUEL100 MG PO (09:15)
[2018-07-25] MEDS ORDERED: TESSALON PERLE100 MG PO (09:15)
[2018-07-25] MEDS ORDERED: PREDNISONE10 MG PO (09:15)
[2018-07-25] MEDS ORDERED: CATAPRES0.1 MG PO (09:15)
[2018-07-25] MEDS ORDERED: CLONAZEPAM0.5 MG PO (09:15)
[2018-07-25] MEDS ORDERED: NIFEDIPINE ER30 M1 PO (09:15)
[2018-07-25] MEDS ORDERED: SEROQUEL25 MG PO (09:15)
[2018-07-25] MEDS: NIFEDIPINE CR 30 MG TAB PO SCH (09:21)
[2018-07-25] MEDS: METOPROLOL SUCCINATE 50 MG TAB XL PO SCH (09:22)
[2018-07-25 09:24] VITALS: BP 173/94
[2018-07-25] MEDS: INSULIN DETEMIR 100 UNIT/ML PEN SQ SCH (09:26)
[2018-07-25 12:00] VITALS: BP 146/89
--- NOTE | 2018-07-26 06:31 | Discharge Summary ---
ADMISSION DIAGNOSES 1. Pneumonia. 2. Acute kidney injury. 3. Hypertension. 4. Hyperglycemia with type 2 diabetes, poorly controlled. 5. Bipolar. DISCHARGE DIAGNOSES 1. Pneumonia. 2. Acute kidney injury. 3. Hypertension. 4. Hyperglycemia with type 2 diabetes, poorly controlled. 5. Bipolar. 6. Anxiety. 7. Neuropathy. HISTORY: Patient has a history of pneumonia, type 2 diabetes, obesity, status post GI cancer with resection, COPD, pancreatic pseudocyst, surgical history of stomach cancer with resection 12 years ago, no family history. HOSPITAL COURSE: This 47-year-old male comes to the ER after worsening pulmonary status with 1 week of productive cough, shortness of breath, chest pain, and congestion. On admission, patient was started on azithromycin, Rocephin, DuoNeb, and Mucinex. Patient started on IV fluids due to the kidney injury. Restart home medicines and endo consulted for poorly controlled diabetes. Patient also started on steroids, which worsened his diabetes. Psych was consulted per patient requested who re-arranged the patient's medicines. Patient appeared to have some type of allergic reaction to the antibiotics, so Rocephin and Zithromax were discontinued, and Levaquin was started. He tolerated that well. On admission, patient had chest x-ray that showed hilar prominence similar to 2016 study, ill-defined opacity in right apex. Patient then had a CT of the chest that showed scattered nodule, ground-glass and alveolar opacities with superimposed smaller nodules and tree and bud opacity, and moderate hepatic steatosis. Per psych, patient will discontinue Thorazine, Zyprexa, Zoloft, and Seroquel 300 mg. He will continue the Depakote daily and add Seroquel 100 mg nightly and q.6h. for agitation. After few days, patient was feeling much better. Patient had a repeat chest x-ray that showed no abnormalities. Urine culture is negative. Urine cultures showed normal jonnie. Patient was discharged home without antibiotics as he has already had 7 days. Vital signs are stable, patient is afebrile. Patient is ready to be discharged home. He will follow up with psych in 2 weeks and endocrinology as discussed as well as primary care in 1-2 weeks. Patient understands discharge instructions and agrees to plan. Dictated by Kiley Garcia NP NANCY HARRIS MD Job#: [id number] ALEXA
== END 2018-07-25 13:05 | disposition home or self-care (01) | DRG 194 ==
LOC: ER 11:25 → ERHOLD 16:03 → MED/SURG 17:12 → MED/SURG3 07-19 15:35
PROVIDERS: ADMIT Internal Medicine; ATTEND Internal Medicine
DX: J18.9 Pneumonia, unspecified organism (principal); N17.9 Acute kidney failure, unspecified; E87.1 Hypo-osmolality and hyponatremia; F31.32 Bipolar disorder, current episode depressed, moderate; E66.2 Morbid (severe) obesity with alveolar hypoventilation; Z68.43 Body mass index [BMI] 50.0-59.9, adult; R09.02 Hypoxemia; E11.65 Type 2 diabetes mellitus with hyperglycemia; F41.9 Anxiety disorder, unspecified; G62.9 Polyneuropathy, unspecified; J44.9 Chronic obstructive pulmonary disease, unspecified; Z85.028 Personal history of other malignant neoplasm of stomach; K76.0 Fatty (change of) liver, not elsewhere classified; E11.22 Type 2 diabetes mellitus with diabetic chronic kidney disease; E11.40 Type 2 diabetes mellitus with diabetic neuropathy, unspecified; Z79.4 Long term (current) use of insulin; G47.33 Obstructive sleep apnea (adult) (pediatric); K74.60 Unspecified cirrhosis of liver; Z68.36 Body mass index [BMI] 36.0-36.9, adult; G47.00 Insomnia, unspecified; I12.9 Hypertensive chronic kidney disease with stage 1 through stage 4 chronic kidney disease, or unspecified chronic kidney disease; N18.9 Chronic kidney disease, unspecified
CPT/HCPCS: 36415; 71045; 71046; 71260; 80048; 80053; 80061; 81001; 82550; 82553; 82948; 83036; 83518; 83605; 83735; 83880; 84436; 84439; 84443; 84479; 84484; 85025; 85379; 85610; 85730; 87070; 87086; 87205; 93005; 94640; 96361; 99285; J0456; J0696; J1200; J1650; J1956; J2060; J2270; J2920; J2930; J7030; Q9967

== ENCOUNTER → 2018-09-06 | Outpatient (CLI) | payer MEDICARE ==
[~2018-09-06] MED LIST changes: +CATAPRES0.1 MG PO; +DIVALPROEX SOD500 M1; +NIFEDIPINE ER30 M1 PO; +OLANZAPINE5 MG PO; +PREDNISONE10 MG PO; +QUETIAPINE FUM100 MG PO; +REPATHA; +SEROQUEL100 MG PO; +SEROQUEL25 MG PO; +SERTRALINE HCL100 MG PO; +TESSALON PERLE100 MG PO; +TOUJEO; +TRAZODONE HCL50 MG PO
== END ==
LOC: RAD 13:27
PROVIDERS: ATTEND Family Medicine
DX: L03.115 Cellulitis of right lower limb (principal)
CPT/HCPCS: 93971

== ENCOUNTER 2019-03-09 14:42 | Emergency (ER) | payer MEDICARE ==
[~2019-03-09] VITALS: Ht 188 cm; Wt 129.7 kg
--- OUTSIDE RECORDS SUMMARY | 2019-03-09 14:44 | XMS REPORT | Clinical Summary ---
Author Author [facility] Address Unknown Phone Unavailable Care Team Providers Care Director Embalmer Name Role Phone Pcp, No PCP Unavailable Allergies No Known Allergies Medications End Date Status Medication Sig Dispensed Refills Start Date Active evolocumab (REPATHA Inject 140 mg 0 SURECLICK) 140 mg/mL subcutaneousl PnIjIndications: y every 14 hypercholesterolemia (fourteen) days. Active NIFEdipine (ADALAT CC) 60 Take 60 mg by 0 MG 24 hr mouth daily. tabletIndications: hypertension Active insulin Inject 55 0 glargine,hum.rec.anlog Units (TOUJEO SOLOSTAR U-300 subcutaneousl INSULIN SUBQ) y 2 (two) times daily with breakfast and dinner. Active mINOCYCLine (DYNACIN) 100 Take 100 mg 0 MG tabletIndications: by mouth 2 skin and skin structure (two) times infection daily. Active metFORMIN (GLUCOPHAGE) Take 1,000 mg 0 1000 MG by mouth 2 tabletIndications: type 2 (two) times diabetes mellitus daily with breakfast and dinner. Active OXcarbazepine (TRILEPTAL) Take 600 mg 0 600 MG tablet by mouth 2 (two) times daily. Active clonazePAM (KLONOPIN) 0.5 Take 0.5 mg 0 MG tablet by mouth 2 (two) times daily as needed for Anxiety. Active insulin aspart U-100 Inject 25 0 (NOVOLOG FLEXPEN U-100 Units INSULIN) 100 unit/mL subcutaneousl InPnIndications: type 2 y 3 (three) diabetes mellitus times daily before meals. Active fenofibrate (TRICOR) 145 Take 145 mg 0 MG tabletIndications: by mouth hypercholesterolemia daily. Active traZODone (DESYREL) 150 Take 150 mg 0 MG tabletIndications: by mouth insomnia associated with nightly. depression Active gabapentin (NEURONTIN) Take 600 mg 0 600 MG tabletIndications: by mouth 2 Neuropathic Pain (two) times daily. Active metoprolol (LOPRESSOR) Take 100 mg 0 100 MG tabletIndications: by mouth 2 hypertension (two) times daily. Active lisinopril Take 20 mg by 0 (PRINIVIL,ZESTRIL) 20 MG mouth 2 (two) tabletIndications: times daily. hypertension Active omeprazole (PRILOSEC) 40 Take 40 mg by 0 MG capsuleIndications: mouth daily. heartburn Active ziprasidone (GEODON) 20 Take 20 mg by 0 MG capsuleIndications: mouth 2 (two) Mixed Bipolar I Disorder times daily with breakfast and dinner. Active QUEtiapine (SEROQUEL) 300 Take 300 mg 0 MG tabletIndications: by mouth 2 Tiki associated with (two) times Bipolar Disorder daily. Active divalproex (DEPAKOTE) 500 Take 500 mg 0 MG EC tabletIndications: by mouth 2 Tiki associated with (two) times Bipolar Disorder daily. Active sertraline (ZOLOFT) 100 Take 100 mg 0 MG tabletIndications: by mouth Depression associated nightly. with Bipolar Disorder 09/01/2019 Active atorvastatin (LIPITOR) 40 Take 1 tablet 30 tablet 0 09/01/201 MG tablet (40 mg total) 8 by mouth nightly. Active Problems Problem Noted Date Chest pain 08/30/2018 Encounters Care Team Description Date Type Specialty Rama Butterfield MD ([place]) L CATH & PCI 09/01/2018 Surgery Ignacia Madden MD Ravuri, Jose Juan Savage MD Chest pain, unspecified type (Primary Dx); Essential hypertension; Type 2 diabetes mellitus with hyperglycemia, unspecified whether fci insulin use ([facility]) 08/30/2018 Emergency General Internal Medicine - 09/01/2018 after 03/08/2018 Social History Date Tobacco Use Types Packs/Day Years Used Quit: 11/30/2012 Former Smoker Smokeless Tobacco: Never Used Alcohol Use Drinks/Week oz/Week Comments Yes 5 Cans of 3.0 beer Sex Assigned at Date Recorded Not on file Industry Job Start Date Occupation Not on file Not on file Not on file Travel End Travel History Travel Start No recent travel history available. Last Filed Vital Signs Time Taken Vital Sign Reading 09/01/2018 4:39 PM CDT Blood Pressure 145/73 09/01/2018 4:39 PM CDT Pulse 99 09/01/2018 4:39 PM CDT Temperature 36.9 C (98.5 F) 09/01/2018 4:39 PM CDT Respiratory Rate 16 09/01/2018 4:39 PM CDT Oxygen Saturation 98% 09/01/2018 10:40 AM CDT Inhaled Oxygen 30% Concentration 08/30/2018 9:49 PM CDT Weight 129.3 kg (285 lb) 08/30/2018 9:49 PM CDT Height 188 cm (6' 2.02") 08/30/2018 9:49 PM CDT Body Mass Index 36.58 Plan of Treatment Not on file Procedures Comments Procedure Name Priority Date/Time Associated Diagnosis CARDIAC CATH REPORT - 09/03/2018 SCAN 2:53 PM CDT REPORT OF PROCEDURE - 09/03/2018 ENDOSCOPY SCAN 2:52 PM CDT RHYTHM STRIP - SCAN 09/03/2018 2:52 PM CDT POCT-GLUCOSE METER Routine 09/01/2018 3:[address] CHEST WITHOUT IV Routine 09/01/2018 CONTRAST 2:44 PM CDT RAPID DRUG SCREEN, URINE Routine 09/01/2018 1:24 PM CDT POCT-GLUCOSE METER Routine 09/01/2018 11:08 AM CDT ECHOCARDIOGRAM REPORT - 09/01/2018 SCAN 10:22 AM CDT L CATH & PCI 09/01/2018 Unstable angina (HCC) 9:00 AM CDT B-TYPE NATRIURETIC FACTOR Routine 09/01/2018 (BNP) 8:56 AM CDT BLOOD GAS, ARTERIAL Routine 09/01/2018 8:52 AM CDT 2D ECHO W/ DOPPLER Routine 09/01/2018 (CW/PW/COLOR) 8:09 AM CDT POCT-GLUCOSE METER Routine 09/01/2018 5:56 AM CDT POCT-GLUCOSE METER Routine 09/01/2018 4:18 AM CDT POCT-GLUCOSE METER Routine 08/31/2018 8:37 PM CDT MR MRA NECK WITHOUT IV Routine 08/31/2018 CONTRAST 6:12 PM CDT MR MRA HEAD WITHOUT Routine 08/31/2018 CONTRAST 6:12 PM CDT MR BRAIN WITHOUT IV Routine 08/31/2018 CONTRAST 5:40 PM CDT POCT-GLUCOSE METER Routine 08/31/2018 3:30 PM CDT PERIPHERAL VASCULAR 08/31/2018 REPORT - SCAN 2:33 PM CDT VENOUS DOPPLER LEG, RIGHT Routine 08/31/2018 1:45 PM CDT POCT-GLUCOSE METER Routine 08/31/2018 11:14 AM CDT TROPONIN I STAT 08/31/2018 8:48 AM CDT POCT-GLUCOSE METER Routine 08/31/2018 6:47 AM CDT CBC W/PLT COUNT & AUTO STAT 08/31/2018 DIFFERENTIAL 5:50 AM CDT CBC W/PLT COUNT & AUTO STAT 08/31/2018 DIFFERENTIAL 5:50 AM CDT LIPID PANEL STAT 08/31/2018 5:50 AM CDT HEMOGLOBIN A1C STAT 08/31/2018 5:50 AM CDT HEPATIC FUNCTION PANEL STAT 08/31/2018 5:50 AM CDT BASIC METABOLIC PANEL (7) STAT 08/31/2018 5:50 AM CDT TROPONIN I STAT 08/31/2018 12:24 AM CDT ED ECG INTERPRETATION Routine 08/30/2018 8:14 PM CDT XR CHEST 1 VIEW STAT 08/30/2018 PORTABLE/BEDSIDE 7:24 PM CDT CBC W/PLT COUNT & AUTO STAT 08/30/2018 DIFFERENTIAL 7:08 PM CDT PROTHROMBIN TIME/INR STAT 08/30/2018 7:08 PM CDT CREATINE KINASE (CK), STAT 08/30/2018 TOTAL AND MB 7:08 PM CDT TROPONIN I STAT 08/30/2018 7:08 PM CDT BASIC METABOLIC PANEL (7) STAT 08/30/2018 7:08 PM CDT CBC W/PLT COUNT & AUTO STAT 08/30/2018 DIFFERENTIAL 7:08 PM CDT after 03/08/2018 Results * CARDIAC CATH REPORT - SCAN (09/03/2018 2:53 PM CDT) Narrative Performed At * EKG-SCANNED (09/03/2018 2:52 PM CDT) Narrative Performed At * RHYTHM STRIP - SCAN (09/03/2018 2:52 PM CDT) Narrative Performed At * POC-Glucose meter (09/01/2018 3:59 PM CDT) Only the most recent of 8 results within the time period is included. POC-Glucose Meter 409 (HH)Comment: TESTED AT 70 - 110 mg/dL [facility] [address] [facility] [id number] Specimen Blood Performing Organization Address City/State/Zipcode Phone Number [facility] [address] [place] [address] [facility] * CT chest without IV contrast (09/01/2018 2:44 PM CDT) Specimen Narrative Performed At FINAL REPORT ePatientFinder [facility] HISTORY: chest pain and SOB COMPARISON : CT abdomen/pelvis from 12/26/2006 Technique : Multiple axial images of the chest were performed from the lung apices to the lung bases without the administration of IV contrast. Images were presented in both the lung and soft tissue windows. This exam was performed according to our departmental dose optimization program which includes automated exposure control, adjustment of the mA and/or kV according to patient size and/or use of iterative reconstructive technique. Findings: The visualized thyroid and visualized structures within the base of the neck demonstrate no significant abnormalities. The thoracic aorta maintains normal course and caliber without significant atherosclerotic stations. The heart is not enlarged. No abnormal pericardial fluid is present. There is no abnormal axillary, mediastinal, or hilar lymph node enlargement. The trachea and proximal airways are patent. There is mild dependent density/basilar atelectasis. There is no evidence for consolidation, pneumothorax, mass, suspicious nodule, or pleural effusion. Limited views of the upper abdomen demonstrate diffusely decreased attenuation of the liver compatible with hepatic steatosis. There are postsurgical changes from prior cholecystectomy. The osseous structures demonstrate no evidence for acute fracture or destructive process. The extrathoracic soft tissues are unremarkable. Impression: No acute intrathoracic process identified. Hepatic steatosis. Signed: Alexsander Rodriguez MD Report Verified Date/Time:09/01/2018 17:13:53 Reading Location: [facility] Radiology Reading Room Procedure Note Interface, External Ris In - 09/01/2018 5:16 PM CDT FINAL REPORT HISTORY: chest pain and SOB COMPARISON : CT abdomen/pelvis from 12/26/2006 Technique : Multiple axial images of the chest were performed from the lung apices to the lung bases without the administration of IV contrast. Images were presented in both the lung and soft tissue windows. This exam was performed according to our departmental dose optimization program which includes automated exposure control, adjustment of the mA and/or kV according to patient size and/or use of iterative reconstructive technique. Findings: The visualized thyroid and visualized structures within the base of the neck demonstrate no significant abnormalities. The thoracic aorta maintains normal course and caliber without significant atherosclerotic stations. The heart is not enlarged. No abnormal pericardial fluid is present. There is no abnormal axillary, mediastinal, or hilar lymph node enlargement. The trachea and proximal airways are patent. There is mild dependent density/basilar atelectasis. There is no evidence for consolidation, pneumothorax, mass, suspicious nodule, or pleural effusion. Limited views of the upper abdomen demonstrate diffusely decreased attenuation of the liver compatible with hepatic steatosis. There are postsurgical changes from prior cholecystectomy. The osseous structures demonstrate no evidence for acute fracture or destructive process. The extrathoracic soft tissues are unremarkable. Impression: No acute intrathoracic process identified. Hepatic steatosis. Signed: Alexsander Rodriguez MD Report Verified Date/Time: 09/01/2018 17:13:53 Reading Location: [facility] Radiology Reading Room Performing Organization Address City/[facility] Phone Number [facility] * Rapid drug screen, urine (09/01/2018 1:24 PM CDT) Barbiturate Screen Negative Negative [facility] Benzodiazepine Screen Positive (A) Negative [facility] Cocaine (Metab.) Screen Negative Negative [facility] Methadone Screen Negative Negative [facility] Opiate Screen Positive (A) Negative [facility] Cannabinoid Screen Negative Negative [facility] Amph/Methamph Screen Negative Negative [facility] Phencyclidine Screen Negative Negative [facility] Specimen Urine Narrative Performed At [facility] 300 ng/mL [facility] Bvyuxiymnux58 ng/mL Tbbueflufblnub034 ng/mL Barbiturate 200 ng/mL Ordjsujkzqava18 ng/mL Jssrmw944 ng/mL Methadone 300 ng/mL Amphetamine/ 1000 ng/mL Methamphetamine This assay provides an unconfirmed qualitative test result for the clinical management of patients in emergency situations. Chain of custody not maintained. Some [id number]-elbcczr medications, as well as adulterants, may cause inaccurate results. Clinical correlation should be applied. A more comprehensive drug screen or confirmation of a detected drug may be performed upon request. Performing Organization Address [facility] Phone Number [facility] [address] [place] [address] * ECHOCARDIOGRAM REPORT - SCAN (09/01/2018 10:22 AM CDT) Narrative Performed At * B-type Natriuretic Factor (BNP) (09/01/2018 8:56 AM CDT) BNP 16 0 - 100 pg/mL [facility] Specimen Blood Performing Organization Address [facility] Phone Number [facility] [address] [place], [place] [phone] * Blood gas, arterial (09/01/2018 8:52 AM CDT) pH, Arterial 7.39 7.35 - 7.[address] [facility] pCO2, Arterial 43 35 - 45 mm Hg [facility] pO2, Arterial 81 80 - 90 mm Hg [facility] O2 Sat, Arterial 95.7 (L) 96.0 - 97.0 % [facility] HCO3, Arterial 25 21 - 29 mmol/L [facility] Base Excess, Arterial 0.0 -2.0 - 3.0 mmol/L [facility] Patient Temperature 37.[address] [facility] FIO2 [address] [facility] Specimen Blood, Arterial Performing Organization Address City/State/Zipcode Phone Number [facility] [address] [place], [place] [address] * 2D Echo W/Doppler(CW/PW/Color) (09/01/2018 8:09 AM CDT) Ejection Fraction [facility] Specimen Narrative Performed At Transthoracic Echocardiography Report (TTE) [facility]ographics [facility] Patient NameCHAPAT PIERSON Date of Study 09/01/2018 GenderMale Visit [id number] RaceUnknown Number [id number] Number Date of 1970 Referring Physician Age 47 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 Physician Procedure Type of Study TTE procedure:2DECHO W DOPPLER(CW/PW/COLOR) (Routine) Indications:Chest pain. Clinical History dm htn hld stroke Height: 72 inches Weight: 129.27 kg (285 lbs) BSA: 2.48 m^2 BMI: 38.65 kg/m^2 HR: 83 bpm BP: 133/79 mmHg Summary Normal LV systolic function with an estimated LVEF of 55-60%. Normal left ventricular diastolic filling dynamics. No obvious structural valvular abnormalities visualized. There appears to be no significant functional valvular abnormality seen. No pericardial effusion. No previous study to compare from. Signature Findings Technical Quality: Limited visualization due to body habitus. Left Ventricle The left ventricle is normal in size, wall thickness, and contractility. Normal overall left ventricular systolic function. The visual ejection fraction was estimated 55-60 %. Normal left ventricular diastolic filling dynamics. Left AtriumThe left atrium is not well visualized. The left atrium appears normal. Right VentricleThe right ventricle is not well visualized. The right ventricular chamber size and systolic function are within normal limits. Right Atrium RA size is normal. Atrial SeptumThe interatrial septum is not well visualized. Aortic Valve The aortic valve is not well visualized, but appears normal. There is no aortic stenosis. There is no aortic regurgitation. Mitral Valve No significant mitral regurgitation. Tricuspid ValveNo evidence of tricuspid regurgitation. Estimated peak systolic PA pressure is cannot be determined due to inadequate TR velocity signal . Pulmonic Valve No evidence of pulmonary regurgitation. AortaAortic root size (SInus of Valsalva diameter) is normal . PericardiumNo pericardial effusion is visualized. IVC/SVC/PA/PV/PleuralThe inferior vena cava is not visualized. Chambers/Structures Left Atrium LA Dimension: 4.22 cm Left Ventricle LVIDd: 5.82 cm LVEDV:167.74 ml LVIDs: 4.5 cm LVESV:92.26 ml LV Septum Diastolic: 1.2 cm LV Septum Systolic: 1.25 cm LV PW Diastolic: 1.18 cmLV FS: 22.7 % LV PW Systolic: 2.41 cm LVEF: 45 % Aorta Ao Root S of Juli.: 3.59 cm Doppler/Quantitative Measurements Mitral Valve MV Peak E-Wave: 0.62 m/sMV Peak A-Wave: 0.45 m/s P1/2t: 91 msecE/A Ratio: 1.36 Peak Velocity: 0.63 m/s Peak Gradient: 1.52 mmHg Mean Velocity: 0.34 m/s Deceleration Time: 430.9 msec Mean Gradient: 0.55 mmHg MV Area (PHT): 2.42 cm^2 MV VTI: 18.68 cm MV Saw. 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 Physician Procedure Type of Study TTE procedure:2DECHO W DOPPLER(CW/PW/COLOR) (Routine) Indications:Chest pain. Clinical History dm htn hld stroke Height: 72 inches Weight: 129.27 kg (285 lbs) BSA: 2.48 m^2 BMI: 38.65 kg/m^2 HR: 83 bpm BP: 133/79 mmHg Summary Normal LV systolic function with an estimated LVEF of 55-60%. Normal left ventricular diastolic filling dynamics. No obvious structural valvular abnormalities visualized. There appears to be no significant functional valvular abnormality seen. No pericardial effusion. No previous study to compare from. Signature Findings Technical Quality: Limited visualization due to body habitus. Left Ventricle The left ventricle is normal in size, wall thickness, and contractility. Normal overall left ventricular systolic function. The visual ejection fraction was estimated 55-60 %. Normal left ventricular diastolic filling dynamics. Left Atrium The left atrium is not well visualized. The left atrium appears normal. Right Ventricle The right ventricle is not well visualized. The right ventricular chamber size and systolic function are within normal limits. Right Atrium RA size is normal. Atrial Septum The interatrial septum is not well visualized. Aortic Valve The aortic valve is not well visualized, but appears normal. There is no aortic stenosis. There is no aortic regurgitation. Mitral Valve No significant mitral regurgitation. Tricuspid Valve No evidence of tricuspid regurgitation. Estimated peak systolic PA pressure is cannot be determined due to inadequate TR velocity signal . Pulmonic Valve No evidence of pulmonary regurgitation. Aorta Aortic root size (SInus of Valsalva diameter) is normal . Pericardium No pericardial effusion is visualized. IVC/SVC/PA/PV/Pleural The inferior vena cava is not visualized. Chambers/Structures Left Atrium LA Dimension: 4.22 cm Left Ventricle LVIDd: 5.82 cm LVEDV:167.74 ml LVIDs: 4.5 cm LVESV:92.26 ml LV Septum Diastolic: 1.2 cm LV Septum Systolic: 1.25 cm LV PW Diastolic: 1.18 cm LV FS: 22.7 % LV PW Systolic: 2.41 cm LVEF: 45 % Aorta Ao Root S of Juli.: 3.59 cm Doppler/Quantitative Measurements Mitral Valve MV Peak E-Wave: 0.62 m/s MV Peak A-Wave: 0.45 m/s P1/2t: 91 msec E/A Ratio: 1.36 Peak Velocity: 0.63 m/s Peak Gradient: 1.52 mmHg Mean Velocity: 0.34 m/s Deceleration Time: 430.9 msec Mean Gradient: 0.55 mmHg MV Area (PHT): 2.42 cm^2 MV VTI: 18.68 cm MV Saw. Peak: Aortic Valve Peak Velocity: 1.3 m/s Mean Velocity: 0.87 m/s Peak Gradient: 6.8 mmHg Mean Gradient: 3.67 mmHg AV VTI: 22.61 cm Cusp Separation: 1.52 cm AV DVI: 0.71 LVOT Peak Velocity: 0.85 m/s Peak Gradient: 3.49 mmHg Mean Velocity: 0.53 m/s Mean Gradient: 1.64 mmHg LVOT VTI: 16.13 cm Performing Organization Address City/State/Zipcode Phone Number [facility] * MRA neck without IV contrast (08/31/2018 6:12 PM CDT) Specimen Narrative Performed At FINAL REPORT [facility] MRA head and neck without contrast INDICATION: Syncope, ischemic stroke evaluation TECHNIQUE: 2-D and 3-D [id number] MRA images of the intra- and extracranial carotid and vertebral artery circulations were obtained, from which maximal intensity projection reconstructions were generated. COMPARISON: None available FINDINGS: MRA neck: The exam is motion degraded. Abnormalities may be obscured. The common and internal carotid arteries demonstrate no significant stenosis. Specifically, no measurable cervical ICA stenosis is seen by NASCET criteria. There is antegrade flow in the cervical vertebral arteries without flow limitation. The proximal common carotid and vertebral arteries are not imaged. MRA [place]: A right posterior communicating artery provides substantial right GUIDE FOREIGN TOUR supply with infundibular origin. There is no major branch occlusion or flow limiting stenosis in the [place] vessels. The left posterior communicating artery is patent. IMPRESSION: 1. Motion degraded neck MRA. 2. No hemodynamically significant carotid artery stenosis by NASCET criteria. 3. No significant stenosis in the imaged cervical vertebral arteries. 4. No [place] major branch occlusion or flow limiting stenosis. Signed: Perfecto Yung MD Report Verified Date/Time:08/31/2018 18:33:25 Reading Location: [facility] Radiology Reading Room Procedure Note Interface, External Ris In - 08/31/2018 6:35 PM CDT FINAL REPORT MRA head and neck without contrast INDICATION: Syncope, ischemic stroke evaluation TECHNIQUE: 2-D and 3-D [id number] MRA images of the intra- and extracranial carotid and vertebral artery circulations were obtained, from which maximal intensity projection reconstructions were generated. COMPARISON: None available FINDINGS: MRA neck: The exam is motion degraded. Abnormalities may be obscured. The common and internal carotid arteries demonstrate no significant stenosis. Specifically, no measurable cervical ICA stenosis is seen by NASCET criteria. There is antegrade flow in the cervical vertebral arteries without flow limitation. The proximal common carotid and vertebral arteries are not imaged. MRA [place]: A right posterior communicating artery provides substantial right GUIDE FOREIGN TOUR supply with infundibular origin. There is no major branch occlusion or flow limiting stenosis in the [place] vessels. The left posterior communicating artery is patent. IMPRESSION: 1. Motion degraded neck MRA. 2. No hemodynamically significant carotid artery stenosis by NASCET criteria. 3. No significant stenosis in the imaged cervical vertebral arteries. 4. No [place] major branch occlusion or flow limiting stenosis. Signed: Perfecto Yung MD Report Verified Date/Time: 08/31/2018 18:33:25 Reading Location: [facility] Radiology Reading Room Performing Organization Address City/State/Zipcode Phone Number [facility] * MRA head without IV contrast (08/31/2018 6:12 PM CDT) Specimen Narrative Performed At FINAL REPORT [facility] MRA head and neck without contrast INDICATION: Syncope, ischemic stroke evaluation TECHNIQUE: 2-D and 3-D [id number] MRA images of the intra- and extracranial carotid and vertebral artery circulations were obtained, from which maximal intensity projection reconstructions were generated. COMPARISON: None available FINDINGS: MRA neck: The exam is motion degraded. Abnormalities may be obscured. The common and internal carotid arteries demonstrate no significant stenosis. Specifically, no measurable cervical ICA stenosis is seen by NASCET criteria. There is antegrade flow in the cervical vertebral arteries without flow limitation. The proximal common carotid and vertebral arteries are not imaged. MRA [place]: A right posterior communicating artery provides substantial right GUIDE FOREIGN TOUR supply with infundibular origin. There is no major branch occlusion or flow limiting stenosis in the [place] vessels. The left posterior communicating artery is patent. IMPRESSION: 1. Motion degraded neck MRA. 2. No hemodynamically significant carotid artery stenosis by NASCET criteria. 3. No significant stenosis in the imaged cervical vertebral arteries. 4. No [place] major branch occlusion or flow limiting stenosis. Signed: Perfecto Yung MD Report Verified Date/Time:08/31/2018 18:33:25 Reading Location: [facility] Radiology Reading Room Procedure Note Interface, External Ris In - 08/31/2018 6:35 PM CDT FINAL REPORT MRA head and neck without contrast INDICATION: Syncope, ischemic stroke evaluation TECHNIQUE: 2-D and 3-D [id number] MRA images of the intra- and extracranial carotid and vertebral artery circulations were obtained, from which maximal intensity projection reconstructions were generated. COMPARISON: None available FINDINGS: MRA neck: The exam is motion degraded. Abnormalities may be obscured. The common and internal carotid arteries demonstrate no significant stenosis. Specifically, no measurable cervical ICA stenosis is seen by NASCET criteria. There is antegrade flow in the cervical vertebral arteries without flow limitation. The proximal common carotid and vertebral arteries are not imaged. MRA [place]: A right posterior communicating artery provides substantial right [employer] supply with infundibular origin. There is no major branch occlusion or flow limiting stenosis in the [place] vessels. The left posterior communicating artery is patent. IMPRESSION: 1. Motion degraded neck MRA. 2. No hemodynamically significant carotid artery stenosis by NASCET criteria. 3. No significant stenosis in the imaged cervical vertebral arteries. 4. No [place] major branch occlusion or flow limiting stenosis. Signed: Perfecto Yung MD Report Verified Date/Time: 08/31/2018 18:33:25 Reading Location: [facility] Radiology Reading Room Performing Organization Address City/State/Zipcode Phone Number [facility] * MR brain without IV contrast (08/31/2018 5:40 PM CDT) Specimen Narrative Performed At FINAL REPORT [facility] MRI brain without contrast INDICATION: Syncope TECHNIQUE: Multiplanar, multisequence MR imaging of the brain was performed utilizing the following imaging sequences: Axial T2, FLAIR, GRE, and DWI; sagittal and coronal T1 COMPARISON: None available FINDINGS: Mild nonspecific white matter signal changes are greater than expected for age. This could reflect early chronic microvascular ischemia or sequela of migraines. Advise neurologic correlation to exclude other white matter processes, however. There is no acute infarct, hematoma, extra-axial collection, hydrocephalus, or mass effect. The major vascular flow voids are maintained. The globes appear proptotic. There is minimal chronic sinus mucosal thickening and trace left mastoid air cell fluid. The sella, craniocervical junction, and calvarium are unremarkable. IMPRESSION: 1. No evidence of acute infarct, hemorrhage, or hydrocephalus. 2. Mild nonspecific chronic white matter changes, greater than expected for age. This could reflect early chronic microvascular disease or sequela of migraines. Advise neurologic correlation to exclude other white matter processes. 3. Additional incidental and chronic findings as discussed. Signed: Perfecto Yung MD Report Verified Date/Time:08/31/2018 18:33:47 Reading Location: [facility] Radiology Reading Room Procedure Note Interface, External Ris In - 08/31/2018 6:36 PM CDT FINAL REPORT MRI brain without contrast INDICATION: Syncope TECHNIQUE: Multiplanar, multisequence MR imaging of the brain was performed utilizing the following imaging sequences: Axial T2, FLAIR, GRE, and DWI; sagittal and coronal T1 COMPARISON: None available FINDINGS: Mild nonspecific white matter signal changes are greater than expected for age. This could reflect early chronic microvascular ischemia or sequela of migraines. Advise neurologic correlation to exclude other white matter processes, however. There is no acute infarct, hematoma, extra-axial collection, hydrocephalus, or mass effect. The major vascular flow voids are maintained. The globes appear proptotic. There is minimal chronic sinus mucosal thickening and trace left mastoid air cell fluid. The sella, craniocervical junction, and calvarium are unremarkable. IMPRESSION: 1. No evidence of acute infarct, hemorrhage, or hydrocephalus. 2. Mild nonspecific chronic white matter changes, greater than expected for age. This could reflect early chronic microvascular disease or sequela of migraines. Advise neurologic correlation to exclude other white matter processes. 3. Additional incidental and chronic findings as discussed. Signed: Perfecto Yung MD Report Verified Date/Time: 08/31/2018 18:33:47 Reading Location: [facility] Radiology Reading Room Performing Organization Address City/State/Zipcode Phone Number [facility] * PERIPHERAL VASCULAR REPORT - SCAN (08/31/2018 2:33 PM CDT) Narrative Performed At * Venous doppler leg, right (08/31/2018 1:45 PM CDT) Specimen Narrative Performed At FINAL REPORT [facility] History: Right lower extremity pain/edema Comparison : None. Comment: Ultrasound examination of the right lower extremity venous systems was performed using grayscale, color and spectral Doppler. The right common femoral, superficial femoral and popliteal veins demonstrated normal response to augmentation and compression maneuvers. There is also a normal response to respiratory variation. Flow is identified within these vessels on color Doppler and there is no evidence of intraluminal thrombus on carmona scale images. The proximal calf veins where visualized appear unremarkable. Impression: Unremarkable right lower extremity venous Doppler examination without evidence for deep venous thrombosis. Signed: Alexsander Rodriguez MD Report Verified Date/Time:08/31/2018 13:54:26 Reading Location: [facility] Radiology Reading Room Procedure Note Interface, External Ris In - 08/31/2018 1:56 PM CDT FINAL REPORT History: Right lower extremity pain/edema Comparison : None. Comment: Ultrasound examination of the right lower extremity venous systems was performed using grayscale, color and spectral Doppler. The right common femoral, superficial femoral and popliteal veins demonstrated normal response to augmentation and compression maneuvers. There is also a normal response to respiratory variation. Flow is identified within these vessels on color Doppler and there is no evidence of intraluminal thrombus on carmoan scale images. The proximal calf veins where visualized appear unremarkable. Impression: Unremarkable right lower extremity venous Doppler examination without evidence for deep venous thrombosis. Signed: Alexsander Rodriguez MD Report Verified Date/Time: 08/31/2018 13:54:26 Reading Location: [facility] Radiology Reading Room Performing Organization Address City/State/Zipcode Phone Number [facility] * Troponin I (08/31/2018 8:48 AM CDT) Only the most recent of 3 results within the time period is included. Troponin I <0.03 0.00 - 0.15 ng/mL [facility] Specimen Blood Narrative Performed At Troponin I (TnI) levels must be interpreted in the context of the presenting [facility] symptoms and the clinical findings. Elevated TnI levels indicate myocardial LABORAT[facility] damage, but are not specific for ischemic heart disease. Elevated TnI levels are seen in patients with other cardiac conditions (including myocarditis and congestive heart failure), and slight TnI elevations occur in patients with other conditions, including sepsis, renal failure, acidosis, acute neurological disease, and persistent tachyarrhythmia. Performing Organization Address City/[facility]/Zipcode Phone Number [facility] [address] [place] [address] * CBC with platelet count + automated diff (08/31/2018 5:50 AM CDT) Only the most recent of 2 results within the time period is included. WBC 5.4 4.0 - 10.0 K/L [facility] RBC 4.57 4.20 - 5.80 M/L [facility] Hemoglobin 13.8 13.0 - 16.8 GM/DL [facility] Hematocrit 41.7 36.0 - 50.0 % [facility] MCV 91.2 82.0 - 99.0 fL [facility] MCH 30.2 27.0 - 33.[address] [facility] MCHC 33.1 32.0 - 36.0 GM/DL [facility] RDW 12.6 12.0 - 15.0 % [facility] Platelets 195 150 - 430 K/CU MM [facility] MPV 10.0 6.0 - 11.[address] [facility] nRBC 0 0 - 0 /100 WBC [facility] % Neutros 53 % [facility] % Lymphs 33 % [facility] % Monos 12 % [facility] % Eos 2 % [facility] % Baso 0 % [facility] # Neutros 2.91 1.80 - 8.00 K/L [facility] # Lymphs 1.78 1.48 - 4.50 K/L [facility] # Monos 0.64 0.00 - 1.30 K/L [facility] # Eos 0.08 0.00 - 0.50 K/L [facility] # Baso 0.01 0.00 - 0.20 K/L [facility] Immature 0 0 - 0 % [facility] Granulocytes-Relative [facility] Specimen Blood Performing Organization Address City/[facility] Phone Number [facility] [address] [place] [phone] * Hemoglobin A1c (08/31/2018 5:50 AM CDT) Hemoglobin A1C 10.5 (H) 4.3 - 6.1 % [facility] Specimen Blood Performing Organization Address [facility] Phone Number [facility] [address] [place] [phone] * Hepatic function panel (08/31/2018 5:50 AM CDT) Protein, Total 7.8 6.0 - 8.5 gm/dL [facility] Albumin 4.2 3.5 - 5.0 g/dL [facility] Total Bilirubin 0.4 0.1 - 1.2 mg/dL [facility] Bilirubin, Direct 0.1 0.0 - 0.4 mg/dL [facility] Alkaline Phosphatase 93 30 - 115 U/L [facility] AST 32 5 - 40 U/L [facility] ALT 43 5 - 50 U/L [facility] Specimen Blood Performing Organization Address [facility] Phone Number [facility] [address] [place] [phone] * Lipid panel (08/31/2018 5:50 AM CDT) Triglycerides 701 mg/dL [facility] Cholesterol 194 mg/dL [facility] HDL 33 mg/dL [facility] Specimen Blood Narrative Performed At Calculated LDL not valid if triglyceride >400 mg/dL [facility] Triglyceride Reference Range: [facility]AT[facility] Low Risk <150 [id number] High Risk 200-499 Very High Risk>=500 Cholesterol Reference Range: Low Risk <200 [id number] High Risk>240 HDL Cholesterol Reference Range: Low Risk >=60 High Risk <40 LDL Cholesterol Reference Range: Optimal<100 Near [id number] Very High >=190 Performing Organization Address [facility] Number [facility] [address] [place] [phone] * Basic metabolic panel (08/31/2018 5:50 AM CDT) Only the most recent of 2 results within the time period is included. Sodium 134 (L) 135 - 148 meq/L [facility] Potassium 4.3 3.6 - 5.5 meq/L [facility] Chloride 100 98 - 106 meq/L [facility] CO2 24 20 - 29 meq/L [facility] BUN 25 10 - 26 mg/dL [facility] Creatinine 1.07 0.50 - 1.20 mg/dL [facility] Glucose 303 (H) 70 - 110 mg/dL [facility] Calcium 9.3 8.5 - 10.5 mg/dL [facility] EGFR 75Comment: ESTIMATED GFR IS mL/min/1.73 sq m [facility] NOT ACCURATE CREATININE LAB[facility]ORY CLEARANCE IN PREDICTING GLOMERULAR FILTRATION RATE. ESTIMATED GFR IS NOT APPLICABLE FOR DIALYSIS PATIENTS. Specimen Blood Performing Organization Address City/State/Zipcode Phone Number [facility] [address] [place] [address] * ED ECG Interpretation (08/30/2018 8:14 PM CDT) Narrative Performed At Ignacia Madden MD 08/30/20188:14 PM ECG/EKG Interpretation Date/Time: 08/30/2018 8:09 PM Performed by: IGNACIA MADDEN Authorized by: IGNACIA MADDEN The ECG was interpreted by ED physician. This ECG was not compared with previous ECG(s).The ECG is interpreted as sinus rhythm. Rate is normal rate. Heart rate is [address] segments normal. T waves normal. ECG reviewed and does not meet STEMI criteria. * XR chest 1 view portable / bedside (08/30/2018 7:24 PM CDT) Specimen Narrative Performed At FINAL REPORT [facility] TECHNIQUE: 2 views of the chest. COMPARISON: 03/09/2010 FINDINGS: The cardiac silhouette is within normal limits.Mediastinum is unremarkable. Lungs are clear.No acute skeletal abnormality. Soft tissues appear unremarkable. IMPRESSION: No acute cardiopulmonary disease. Signed: Newton Colindres MD Report Verified Date/Time:08/30/2018 19:25:14 Reading Location: [facility] Mammo Reading Room Procedure Note Interface, External Ris In - 08/30/2018 7:27 PM CDT FINAL REPORT TECHNIQUE: 2 views of the chest. COMPARISON: 03/09/2010 FINDINGS: The cardiac silhouette is within normal limits. Mediastinum is unremarkable. Lungs are clear. No acute skeletal abnormality. Soft tissues appear unremarkable. IMPRESSION: No acute cardiopulmonary disease. Signed: Newton Colindres MD Report Verified Date/Time: 08/30/2018 19:25:14 Reading Location: [facility] Reading Room Performing Organization Address City/State/Zipcode Phone Number [facility] * PT/INR (08/30/2018 7:08 PM CDT) Protime 10.2 9.3 - 12.0 sec [facility] INR 0.9 <=5.[address] [facility] Specimen Blood Narrative Performed At RECOMMENDED COUMADIN/WARFARIN INR THERAPY RANGES [facility] STANDARD DOSE: 2.0 - 3.0 Includes: PROPHYLAXIS for venous thrombosis, LABORATORY systemic embolization; TREATMENT for venous thrombosis and/or pulmonary embolus. HIGH RISK: Target INR is 2.5-3.5 for patients with mechanical heart valves. Final Information (Auto Output) Final Information (Auto Output) Performing Organization Address [facility] Hospitalcode Phone Number [facility] [address] [place], [place] [phone] * Creatine Kinase (CK), Total and MB (not available at [facility] [place]) (08/30/2018 7:08 PM CDT) Total CK 186 40 - 250 U/L [facility] CK-MB 2.8 0.0 - 4.9 ng/mL [facility] MB Relative Index 1.5 % [facility] Specimen Blood Narrative Performed At CK-MB Reference Range: [place] <5 Normal LAB[facility] 5-10 Borderline >10Abnormal Performing Organization Address [facility] Hospital[facility] Phone Number [facility] [address] [place], [place] [address] after 03/08/2018 Insurance Payer Benefit Subscriber ID Type Phone Address Plan / Group [employer] - MEDICARE MGD CARE [employer] xxxxxxxx [phone] [address] [place] [address] HMO POS PPO Advance Directives For more information, please contact: [facility] [address] [place] [address] Date Inactivated Comments Code Status Date Activated 09/01/2018 9:48 PM Full Code 08/30/2018 9:57 PM This code status was determined by: Patient
[2019-03-09 16:12] LABS: BASOPHILS % 0.4 % (0.0-1.0); EOSINOPHILS % 0.4 % (0.0-6.0); HEMOGLOBIN 15.9 g/dL (14.0-18.0); LYMPHOCYTES # (AUTO) 1.9 (1.0-3.2); LYMPHOCYTES % 23.5 % (18.0-39.1); MEAN CORPUSCULAR HEMOGLOBIN 30.1 pg (28-32); MEAN CORPUSCULAR HGB CONC 35.3 g/dL (31-35); MEAN CORPUSCULAR VOLUME 85.2 fL (81-99); MONOCYTES # (AUTO) 0.6 (0.2-0.8); MONOCYTES % 6.7 % (4.4-11.3); NEUTROPHILS # (AUTO) 5.6 (2.1-6.9); NEUTROPHILS % 68.5 % (38.7-80.0); PLATELET COUNT 196 x10e3/uL (140-360); RED BLOOD COUNT 5.28 x10e6/uL (4.3-5.7); RED CELL DISTRIBUTION WIDTH 11.9 % (11.7-14.4)
[2019-03-09 16:21] LABS: INR 0.77; PARTIAL THROMBOPLASTIN TIME 24.9 seconds (23.8-35.5); PROTHROMBIN TIME 11.2 seconds (11.9-14.5)
[2019-03-09 16:24] LABS: CLARITY,URINE CLEAR (CLEAR); COLOR,URINE YELLOW (YELLOW); KETONES,URINE NEGATIVE (NEGATIVE); LEUKOCYTE ESTERASE ,URINE NEGATIVE (NEGATIVE); NITRITE,URINE NEGATIVE (NEGATIVE); PROTEIN,URINE DIPSTICK NEGATIVE (NEGATIVE); URINE UROBILINOGEN 0.2 mg/dL (0.2 - 1)
[2019-03-09 16:25] LABS: BILIRUBIN,URINE NEGATIVE (NEGATIVE)
[2019-03-09 16:29] LABS: ALANINE AMINOTRANSFERASE 38 IU/L (0-55); ALBUMIN 4.1 g/dL (3.5-5.0); ALKALINE PHOSPHATASE 119 IU/L (40-150); AMYLASE 93 U/L (25-125); ANION GAP 16.8 mmol/L (8-16); BLOOD UREA NITROGEN 19 mg/dL (7-26); BUN/CREATININE RATIO 17 (6-25); CALCIUM 10.1 mg/dL (8.4-10.2); CARBON DIOXIDE 23 mmol/L (22-29); CHLORIDE 95 mmol/L (98-107); CREATININE, SERUM 1.14 mg/dL (0.72-1.25); EST GLOMERULAR FILTRATION RATE > 60 ML/MIN (60-); GLUCOSE 335 mg/dL (74-118); LIPASE 63 U/L (8-78); MAGNESIUM 1.9 MG/DL (1.3-2.1); POTASSIUM 3.8 mmol/L (3.5-5.1); SODIUM 131 mmol/L (136-145)
[2019-03-09 16:34] LABS: BACTERIA,URINE FEW /HPF
[2019-03-09 18:00] LABS: AMPHETAMINES SCREEN,URINE NEGATIVE (NEGATIVE); BENZODIAZEPINES SCREEN,URINE NEGATIVE (NEGATIVE); PHENCYCLIDINE SCREEN,URINE NEGATIVE (NEGATIVE)
[2019-03-09] MEDS ORDERED: SODIUM CHLORIDE 0.9% 50ML 50 ML ONE (18:27)
[2019-03-09] MEDS ORDERED: IOPAMIDOL 370 MG/ML 200 ML INFUS..BTL INJ ONE (18:27)
--- NOTE | 2019-03-09 19:47 | Diagnostic Imaging Report ---
EXAM: CT Abdomen and Pelvis WITH contrast INDICATION: Abdominal pain. COMPARISON: 11/20/2017. TECHNIQUE: Abdomen and pelvis were scanned utilizing a multidetector helical scanner from the lung base to the pubic symphysis after administration of IV contrast. Coronal and sagittal reformations were obtained. Routine protocol was performed. Scan was performed when during portal venous phase. IV CONTRAST: 150 mL of Omnipaque 300 ORAL CONTRAST: Water RADIATION DOSE: Total DLP: 826.65 mGy*cm Estimated effective dose: (DLP x 0.015 x size factor) mSv COMPLICATIONS: None FINDINGS: LINES and TUBES: None. LOWER THORAX: Unremarkable HEPATOBILIARY: Diffuse hepatic steatosis. No focal hepatic lesions. No biliary ductal dilation. GALLBLADDER: Surgically absent. SPLEEN: No splenomegaly. PANCREAS: No focal masses or ductal dilatation. ADRENALS: No adrenal nodules KIDNEYS/URETERS: Kidneys enhance symmetrically. No hydronephrosis. No cystic or solid mass lesions. No stones. GI TRACT: Evaluation limited due to the lack of contrast. Post surgical changes involving small bowel loops in the right upper quadrant anteriorly. A dilated small bowel loop at the level of the anastomosis measuring up to 8.3 cm on image 25 series 2 can be seen with long-term postoperative bowel anastomosis, unchanged. There is mild distention of distal small bowel loops there is stool within the colon. 5.3 cm diverticulum of the second portion of the duodenum. Appendix is normal. PELVIC ORGANS/BLADDER: Unremarkable. LYMPH NODES: No lymphadenopathy. VESSELS: Splenic vein appears occluded, with extensive collateral circulation in the gastrosplenic region. IVC filter. PERITONEUM / RETROPERITONEUM: No free air or fluid. BONES: Unremarkable. SOFT TISSUES: Small fat-containing right inguinal hernia. IMPRESSION: 1. Focally dilated small bowel loop at the level of the anastomosis measuring up to 8.3 cm can be seen with long-term postoperative bowel anastomosis and is stable.. No evidence of obstruction. 2. 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 3. Hepatomegaly and hepatic steatosis. Signed by: Dr. Shira Jones M.D. on 03/09/2019 7:44 PM
== END 2019-03-09 20:31 | disposition home or self-care (01) ==
LOC: ER 14:42
DX: S30.1XXA Contusion of abdominal wall, initial encounter (principal); W01.0XXA Fall on same level from slipping, tripping and stumbling without subsequent striking against object, initial encounter; Y93.01 Activity, walking, marching and hiking; I10 Essential (primary) hypertension; E11.9 Type 2 diabetes mellitus without complications; Z85.07 Personal history of malignant neoplasm of pancreas; F41.9 Anxiety disorder, unspecified; Z83.3 Family history of diabetes mellitus; Z82.49 Family history of ischemic heart disease and other diseases of the circulatory system; K63.89 Other specified diseases of intestine; Z98.0 Intestinal bypass and anastomosis status; Z79.82 Long term (current) use of aspirin; Z79.4 Long term (current) use of insulin
CPT/HCPCS: 36415; 74177; 80053; 80307; 81001; 82150; 82948; 83690; 83735; 85025; 85610; 85730; 99283; Q9967

== ENCOUNTER 2019-05-20 10:13 | Inpatient (IN) | payer MEDICARE ==
[2019-05-18 15:18] LABS: BASOPHILS % 0.3 % (0.0-1.0); EOSINOPHILS # (AUTO) 0.1 (0.0-0.4); EOSINOPHILS % 1.7 % (0.0-6.0); HEMATOCRIT 45.3 % (38.2-49.6); HEMOGLOBIN 14.9 g/dL (14.0-18.0); LYMPHOCYTES # (AUTO) 2.3 (1.0-3.2); LYMPHOCYTES % 31.7 % (18.0-39.1); MEAN CORPUSCULAR HEMOGLOBIN 30.4 pg (28-32); MEAN CORPUSCULAR HGB CONC 32.9 g/dL (31-35); MEAN CORPUSCULAR VOLUME 92.4 fL (81-99); MONOCYTES # (AUTO) 0.7 (0.2-0.8); MONOCYTES % 9.2 % (4.4-11.3); NEUTROPHILS # (AUTO) 4.1 (2.1-6.9); NEUTROPHILS % 56.5 % (38.7-80.0); PLATELET COUNT 227 x10e3/uL (140-360); RED CELL DISTRIBUTION WIDTH 12.4 % (11.7-14.4)
[2019-05-18 15:43] LABS: ALANINE AMINOTRANSFERASE 26 IU/L (0-55); ALBUMIN 3.8 g/dL (3.5-5.0); ALBUMIN/GLOBULIN RATIO 1.1 (0.8-2.0); ALKALINE PHOSPHATASE 96 IU/L (40-150); ANION GAP 11.2 mmol/L (8-16); BLOOD UREA NITROGEN 11 mg/dL (7-26); BUN/CREATININE RATIO 13 (6-25); CALCIUM 9.4 mg/dL (8.4-10.2); CARBON DIOXIDE 25 mmol/L (22-29); CHLORIDE 101 mmol/L (98-107); CREATININE, SERUM 0.85 mg/dL (0.72-1.25); EST GLOMERULAR FILTRATION RATE > 60 ML/MIN (60-); GLUCOSE 149 mg/dL (74-118); POTASSIUM 4.2 mmol/L (3.5-5.1); SODIUM 133 mmol/L (136-145)
[~2019-05-20] VITALS: Ht 190.5 cm; Wt 115.7 kg
[2019-05-20] MEDS ORDERED: CEFAZOLIN SOD 1 GM/NS 50ML 100 ML IV ONE (10:14)
--- OUTSIDE RECORDS SUMMARY | 2019-05-20 10:15 | XMS REPORT | Clinical Summary ---
Author Author [facility] Address Unknown Phone Unavailable Care Team Providers Care Floatman Name Role Phone Pcp, No PCP Unavailable [...] 2 diabetes mellitus with hyperglycemia, unspecified whether mcfp insulin use (HCC) 08/30/2018 Emergency General Internal Medicine - 09/01/2018 after 05/19/2018 Social History Date Tobacco Use Types Packs/Day [...] STAT 08/30/2018 DIFFERENTIAL 7:08 PM CDT after 05/19/2018 Results * CARDIAC CATH REPORT - SCAN [...] (HH)Comment: TESTED AT 70 - 110 mg/dL [facility] [address] [facility] [address] Specimen Blood Performing Organization Address City/State/Zipcode Phone Number [facility] [address] [place] [address] [facility] * CT chest without IV contrast (09/01/2018 2:44 PM CDT) Specimen Narrative Performed At FINAL REPORT [employer] [facility] HISTORY: chest pain and SOB COMPARISON : [...] MD Report Verified Date/Time:09/01/2018 17:13:53 Reading Location: [facility] Radiology Reading Room Procedure Note Interface, External [...] Report Verified Date/Time: 09/01/2018 17:13:53 Reading Location: [facility] Radiology Reading Room Performing Organization Address City/[facility] Phone Number [facility] * Rapid drug [...] [place] Cocaine 300 ng/mL LABORATORY Noslfhvbuxf42 ng/mL Qdwzxepyrcyqsi601 ng/mL Barbiturate 200 ng/mL Dfvczqsgsnbez56 ng/mL Btjtvd369 ng/mL Methadone 300 ng/mL Amphetamine/ 1000 ng/mL Methamphetamine This assay provides an unconfirmed qualitative test result for the clinical management of patients in emergency situations. Chain of custody not maintained. Some gkve-vzz-ncnagfq medications, as well as adulterants, may cause inaccurate results. Clinical correlation should be applied. A more comprehensive drug screen or confirmation of a detected drug may be performed upon request. Performing Organization Address [facility] Phone Number [facility] [address] [place] [address] * ECHOCARDIOGRAM REPORT - SCAN (09/01/2018 10:22 AM CDT) Narrative Performed At * B-type Natriuretic Factor (BNP) (09/01/2018 8:56 AM CDT) BNP 16 0 - 100 pg/mL [facility] Specimen Blood Performing Organization Address [facility] Phone Number [facility] [address], [place] [phone] * Blood gas, arterial (09/01/2018 8:52 AM CDT) pH, Arterial 7.39 7.35 - 7.45 [facility] pCO2, Arterial 43 35 - 45 mm Hg [facility] pO2, Arterial 81 80 - 90 mm Hg [facility] O2 Sat, Arterial 95.7 (L) 96.0 - 97.0 % [facility] HCO3, Arterial 25 21 - 29 mmol/L [facility] Base Excess, Arterial 0.0 -2.0 - 3.0 mmol/L [facility] Patient Temperature 37.0 [facility] FIO2 21 [facility] Specimen Blood, Arterial Performing Organization Address City/State/Zipcode Phone Number [facility] [address], [place] [phone] * 2D Echo W/Doppler(CW/PW/Color) (09/01/2018 8:09 AM CDT) Ejection Fraction [facility] ECHO [facility] Specimen Narrative Performed At Transthoracic Echocardiography Report (TTE) [facility] ECHO [facility]ARTLAB [facility]ographics [facility] Patient NameCHAPAT PIERSON Date of Study 09/01/2018 GenderMale Visit [id number] RaceUnknown Number [id number] Number Date of 1970 Referring Physician Age 47 year(s) Photographic Process Worker Francine Julio [facility] Interpreting Rama Butterfield MD. Physician Procedure [...] of Study 09/01/2018 Gender Male Visit Number [id number] Race Unknown Room Number AS410 Number Date of 1970 Referring Physician Age 47 year(s) Photographic Process Worker Francine [facility] Interpreting Rama Butterfield MD. Physician [...] CDT) Specimen Narrative Performed At FINAL REPORT [facility] MRA head and neck without contrast INDICATION: Syncope, ischemic stroke evaluation TECHNIQUE: 2-D and 3-D qzkl-xl-kendud MRA images of the intra- and extracranial [...] and vertebral arteries are not imaged. MRA [place]: A right posterior communicating artery provides substantial right COT[employer]ENER supply with infundibular origin. There is no major branch occlusion or flow limiting stenosis in the [place] vessels. The left posterior communicating artery is patent. IMPRESSION: 1. Motion degraded neck MRA. 2. No hemodynamically significant carotid artery stenosis by NASCET criteria. 3. No significant stenosis in the imaged cervical vertebral arteries. 4. No [place] major branch occlusion or flow limiting stenosis. Signed: Perfecto Yung MD Report Verified Date/Time:08/31/2018 18:33:25 Reading Location: [facility] Radiology Reading Room Procedure Note Interface, External Ris In - 08/31/2018 6:35 PM CDT FINAL REPORT MRA head and neck without contrast INDICATION: Syncope, ischemic stroke evaluation TECHNIQUE: 2-D and 3-D gbzb-wp-khtucs MRA images of the intra- and extracranial [...] and vertebral arteries are not imaged. MRA [place]: A right posterior communicating artery provides substantial right COTTON OPENER supply with infundibular origin. There is no major branch occlusion or flow limiting stenosis in the [place] vessels. The left posterior communicating artery is patent. IMPRESSION: 1. Motion degraded neck MRA. 2. No hemodynamically significant carotid artery stenosis by NASCET criteria. 3. No significant stenosis in the imaged cervical vertebral arteries. 4. No [place] major branch occlusion or flow limiting stenosis. Signed: Perfecto Yung MD Report Verified Date/Time: 08/31/2018 18:33:25 Reading Location: [facility] Radiology Reading Room Performing Organization Address City/State/Zipcode Phone Number [employer] * MRA head without IV contrast (08/31/2018 6:12 PM CDT) Specimen Narrative Performed At FINAL REPORT [employer] MRA head and neck without contrast INDICATION: Syncope, ischemic stroke evaluation TECHNIQUE: 2-D and 3-D iyrc-qh-ybgcks MRA images of the intra- and extracranial [...] and vertebral arteries are not imaged. MRA [place]: A right posterior communicating artery provides substantial right COTTON OPENER supply with infundibular origin. There is no major branch occlusion or flow limiting stenosis in the [place] vessels. The left posterior communicating artery is patent. IMPRESSION: 1. Motion degraded neck MRA. 2. No hemodynamically significant carotid artery stenosis by NASCET criteria. 3. No significant stenosis in the imaged cervical vertebral arteries. 4. No [place] major branch occlusion or flow limiting stenosis. Signed: Perfecto Yung MD Report Verified Date/Time:08/31/2018 18:33:25 Reading Location: [facility] Radiology Reading Room Procedure Note Interface, External Ris In - 08/31/2018 6:35 PM CDT FINAL REPORT MRA head and neck without contrast INDICATION: Syncope, ischemic stroke evaluation TECHNIQUE: 2-D and 3-D qayg-xl-ehmjnt MRA images of the intra- and extracranial [...] and vertebral arteries are not imaged. MRA [place]: A right posterior communicating artery provides substantial right COTTON OPENER supply with infundibular origin. There is no major branch occlusion or flow limiting stenosis in the [place] vessels. The left posterior communicating artery is patent. IMPRESSION: 1. Motion degraded neck MRA. 2. No hemodynamically significant carotid artery stenosis by NASCET criteria. 3. No significant stenosis in the imaged cervical vertebral arteries. 4. No [place] major branch occlusion or flow limiting stenosis. Signed: Perfecto Yung MD Report Verified Date/Time: 08/31/2018 18:33:25 Reading Location: [facility] Radiology Reading Room Performing Organization Address City/State/Zipcode Phone Number [facility] * MR brain without IV contrast (08/31/2018 5:40 PM CDT) Specimen Narrative Performed At FINAL REPORT [facility] MRI brain without contrast INDICATION: Syncope TECHNIQUE: [...] MD Report Verified Date/Time:08/31/2018 18:33:47 Reading Location: [facility] Radiology Reading Room Procedure Note Interface, External [...] Report Verified Date/Time: 08/31/2018 18:33:47 Reading Location: [facility] Radiology Reading Room Performing Organization Address City/State/Zipcode Phone Number RIS * PERIPHERAL VASCULAR REPORT - SCAN (08/31/2018 2:33 PM CDT) Narrative Performed At * Venous doppler leg, right (08/31/2018 1:45 PM CDT) Specimen Narrative Performed At FINAL REPORT [facility] History: Right lower extremity pain/edema Comparison : [...] MD Report Verified Date/Time:08/31/2018 13:54:26 Reading Location: [facility] Radiology Reading Room Procedure Note Interface, External [...] Report Verified Date/Time: 08/31/2018 13:54:26 Reading Location: [facility] Radiology Reading Room Performing Organization Address City/State/Zipcode Phone Number [facility] * Troponin I (08/31/2018 8:48 AM CDT) [...] Organization Address City/[facility]/Zipcode Phone Number [facility] [address] [place] [address] * CBC with platelet count + automated diff (08/31/2018 5:50 AM CDT) Only the most recent of 2 results within the time period is included. WBC 5.4 4.0 - 10.0 K/L [place] [facility] RBC 4.57 4.20 - 5.80 M/L [facility] Hemoglobin 13.8 13.0 - 16.8 GM/DL [facility] Hematocrit 41.7 36.0 - 50.0 % [facility] MCV 91.2 82.0 - 99.0 fL [place] [facility] MCH 30.2 27.0 - 33.0 pg [facility] MCHC 33.1 32.0 - 36.0 GM/DL [facility] RDW 12.6 12.0 - 15.0 % [facility] Platelets 195 150 - 430 K/CU MM [place] [facility] MPV 10.0 6.0 - 11.5 fL [facility] nRBC 0 0 - 0 /100 [...] Organization Address City/[facility] Phone Number [facility] [address] [place] [phone] * Hemoglobin A1c (08/31/2018 5:50 AM CDT) Hemoglobin A1C 10.5 (H) 4.3 - 6.1 % [facility] Specimen Blood Performing Organization Address [facility] Phone Number [facility] [address] [place] [address] * Hepatic function panel (08/31/2018 5:50 AM CDT) Protein, Total 7.8 6.0 - 8.5 gm/dL [facility] Albumin 4.2 3.5 - 5.0 g/dL [facility] Total Bilirubin 0.4 0.1 - 1.2 mg/dL [facility] Bilirubin, Direct 0.1 0.0 - 0.4 mg/dL [facility] Alkaline Phosphatase 93 30 - 115 U/L [facility] AST 32 5 - 40 U/L [facility] ALT 43 5 - 50 U/L [facility] Specimen Blood Performing Organization Address [facility] Phone Number [facility] [address] [place] [phone] * Lipid panel (08/31/2018 5:50 AM CDT) Triglycerides 701 mg/dL [facility] Cholesterol 194 mg/dL [facility] HDL 33 mg/dL [facility] Specimen Blood Narrative Performed At Calculated LDL not valid if triglyceride >400 mg/dL [facility] Triglyceride Reference Range: LABORATORY Low Risk <150 [id number] High Risk 200-499 Very High Risk>=500 Cholesterol Reference Range: Low Risk <200 [id number] High Risk>240 HDL Cholesterol Reference Range: Low Risk >=60 High Risk <40 LDL Cholesterol Reference Range: Optimal<100 Near [id number] Uhfsvcmeen555-994 [id number] Very High >=190 Performing Organization Address [facility] Number [facility] [address] [place] [address] * Basic metabolic panel (08/31/2018 5:50 AM CDT) Only the most recent of 2 results within the time period is included. Sodium 134 (L) 135 - 148 meq/L [facility] Potassium 4.3 3.6 - 5.5 meq/L [facility] Chloride 100 98 - 106 meq/L [facility] CO2 24 20 - 29 meq/L [facility] BUN 25 10 - 26 mg/dL [facility] Creatinine 1.07 0.50 - 1.20 mg/dL [facility] Glucose 303 (H) 70 - 110 mg/dL [facility] Calcium 9.3 8.5 - 10.5 mg/dL [facility] EGFR 75Comment: ESTIMATED GFR IS mL/min/1.73 sq m [place] NOT ACCURATE CREATININE LABORATORY CLEARANCE IN PREDICTING GLOMERULAR FILTRATION RATE. ESTIMATED GFR IS NOT APPLICABLE FOR DIALYSIS PATIENTS. Specimen Blood Performing Organization Address City/State/Zipcode Phone Number [facility] [address] [place] [address] * ED ECG Interpretation (08/30/2018 8:14 PM [...] CDT) Specimen Narrative Performed At FINAL REPORT [facility] TECHNIQUE: 2 views of the chest. COMPARISON: 03/09/2010 FINDINGS: The cardiac silhouette is within normal limits.Mediastinum is unremarkable. Lungs are clear.No acute skeletal abnormality. Soft tissues appear unremarkable. IMPRESSION: No acute cardiopulmonary disease. Signed: Newton Colindres MD Report Verified Date/Time:08/30/2018 19:25:14 Reading Location: [facility] Mammo Reading Room Procedure Note Interface, External Ris In - 08/30/2018 7:27 PM CDT FINAL REPORT TECHNIQUE: 2 views of the chest. COMPARISON: 03/09/2010 FINDINGS: The cardiac silhouette is within normal limits. Mediastinum is unremarkable. Lungs are clear. No acute skeletal abnormality. Soft tissues appear unremarkable. IMPRESSION: No acute cardiopulmonary disease. Signed: Newton Colindres MD Report Verified Date/Time: 08/30/2018 19:25:14 Reading Location: [facility] Reading Room Performing Organization Address City/State/Zipcode Phone Number [facility] * PT/INR (08/30/2018 7:08 PM CDT) Protime 10.2 9.3 - 12.0 sec [facility] INR 0.9 <=5.9 [facility] Specimen Blood Narrative Performed At RECOMMENDED COUMADIN/WARFARIN INR THERAPY RANGES [facility] STANDARD DOSE: 2.0 - 3.0 Includes: PROPHYLAXIS for venous thrombosis, LABORATORY systemic embolization; TREATMENT for venous thrombosis and/or pulmonary embolus. HIGH RISK: Target INR is 2.5-3.5 for patients with mechanical heart valves. Final Information (Auto Output) Final Information (Auto Output) Performing Organization Address [facility] Phone Number [facility] [address], [place] [address] * Creatine Kinase (CK), Total and MB (not available at [facility] and [place]) (08/30/2018 7:08 PM CDT) Total CK 186 40 - 250 U/L [facility] CK-MB 2.8 0.0 - 4.9 ng/mL [facility] MB Relative Index 1.5 % [facility] Specimen Blood Narrative Performed At CK-MB Reference Range: [place] <5 Normal LABORATORY 5-10 Borderline >10Abnormal Performing Organization Address [facility] Phone Number [facility] [address], [place] [address] after 05/19/2018 Insurance Payer Benefit Subscriber ID Type Phone Address Plan / Group [employer] - MEDICARE MGD CARE [employer] xxxxxxxx [phone] [address] [place] [address] HMO POS PPO Advance Directives For more information, please contact: [facility] [address] [place] [address] Date Inactivated Comments Code Status Date Activated 09/01/2018 9:48 PM Full Code 08/30/2018 9:57 PM This code status was determined by: Patient
[2019-05-20] MEDS ORDERED: SERTRALINE HCL100 MG PO ×2 (10:55→10:57)
[2019-05-20] MEDS ORDERED: BACITRACIN 50,000 UNIT VIAL ONE (10:56)
[2019-05-20] MEDS ORDERED: BUPIVACAINE HCL 0.5% INJ 30 ML VIAL INJ ONE (10:56)
[2019-05-20] MEDS ORDERED: MIDAZOLAM HCL 2 MG/2 ML VIAL ONE ×2 (11:49→17:13)
[2019-05-20] MEDS ORDERED: CLONAZEPAM 0.5 MG TAB PO PRN (13:30)
[2019-05-20] MEDS ORDERED: QUETIAPINE FUMARATE 25 MG TAB PO PRN (13:30)
[2019-05-20] MEDS ORDERED: ACETAMINOPHEN 1000 MG/100 ML IV PRN (13:30)
[2019-05-20] MEDS ORDERED: DEXTROSE 50% SYRINGE 50 ML IV PRN (13:30)
[2019-05-20] MEDS ORDERED: CLONIDINE HCL 0.1 MG TAB PO PRN (13:30)
[2019-05-20] MEDS ORDERED: HYDROMORPHONE 0.2MG/ML-SOD CHL 30ML PCA SYRINGE IV PRN (13:30)
[2019-05-20] MEDS ORDERED: NALOXONE HCL INJ 0.4 MG/ML AMP IV PRN (13:30)
[2019-05-20] MEDS ORDERED: KETOROLAC TROMETHAMINE 30 MG/ML VIAL IV PRN (13:30)
[2019-05-20] MEDS ORDERED: NON-FORMULARY MEDICATION (Benzonatate (Tessalon Perle) 100 MG) PO PRN (13:30)
[2019-05-20] MEDS ORDERED: HYDROMORPHONE 2MG/ML 2 MG/ML ML ONE (13:40)
--- NOTE | 2019-05-20 13:49 | Operative Report ---
DATE OF PROCEDURE: 05/20/2019 SURGEON: Antwon Walsh MD PREOPERATIVE DIAGNOSES: Recurrent incisional hernia, abdominal wall suture granulomas. POSTOPERATIVE DIAGNOSES: Recurrent incisional hernia, abdominal wall suture granulomas. PROCEDURES: 1. Repair of recurrent incisional hernia. 2. Excision of abdominal wall suture granulomas. MERCERIZER: None. ANESTHESIA: General. INDICATIONS AND FINDINGS: The patient is a 48-year-old male, who presents with complains of abdominal pain with drainage from several sites in the abdominal wall, he had multiple previous abdominal surgeries. At surgery, the patient was fount to have an area in the upper abdomen where the fascia was very thinned out causing herniation. There were some sutures eroding through the skin which were excised with one area with considerable inflammatory reaction around the suture. The abdomen was opened. There were a few adhesions which were lysed, but otherwise, there was no abnormality seen and the bowel all appeared normal. TECHNIQUE: After adequate general endotracheal anesthesia with the patient in supine position, the abdomen was prepped and draped in sterile fashion with ChloraPrep solution. The midline scar was excised, incision carried down through subcutaneous tissue until the fascia was seen, subcutaneous tissue was dissected away from the fascia. There was a thinned out area in the upper midline what appeared to be the hernia. This area was opened and the peritoneal cavity was entered. There were some adhesions in the abdominal wall, which were lysed. Otherwise, the small bowel appeared normal. There was no fluid in the abdomen. The subcutaneous tissue was dissected away from the fascia from the left side of the abdomen to where sutures were seen to be eroding through the skin and these sutures were excised with the tissue around them which appeared inflamed. Also, the subcutaneous tissue was dissected away from the fascia on the right side of the abdomen so that the fascial defect was completely delineated. With concern for possible infection having the granulomas in the abdominal wall, it was decided to repair the hernia directly. This was done in a kvov-lkwa-ibdsk fashion. Sutures were taken through the fascia on the left side and then from outside in on the fascia on the right side to bring the fascia abdominal wall from the left side over the right side to create a jrrc-dlrr-ewjir closure. This was done with running suture of #1 Prolene and once this was done, then additional layers closing the fascia with a running suture of number #1 Prolene was also placed. There was minimal tension on the closure. The wound was irrigated with antibiotic solution, inspected for hemostasis which was seen to be adequate. The subcutaneous tissue was then closed with running suture of 3-0 Vicryl and skin was closed with bruce. A sterile dressing was applied. The patient tolerated the procedure well. Estimated blood loss for entire procedure was 25 mL. There were no complications. All counts were correct. The patient was taken to the recovery room in satisfactory condition. MD YAN ArayaG/MODL /[id number] cc: Mekhi Rivera MD
--- OUTSIDE RECORDS SUMMARY | 2019-05-20 14:08 | XMS REPORT | Clinical Summary ---
Author Author JHOAN [facility] Address Unknown Phone Unavailable Care Team Providers Care Supervisor Powdered Sugar Name Role Phone Pcp, No PCP Unavailable [...] 2 diabetes mellitus with hyperglycemia, unspecified whether penitentiary insulin use (HCC) 08/30/2018 Emergency General Internal [...] (HH)Comment: TESTED AT 70 - 110 mg/dL [facility] [address] [facility] [address] [facility] [address] Specimen Blood Performing Organization Address City/State/Zipcode Phone Number [facility] [address] [place] [address] [facility] * CT chest without IV contrast (09/01/2018 2:44 PM CDT) Specimen Narrative Performed At FINAL REPORT [facility] HISTORY: chest pain and SOB COMPARISON : [...] MD Report Verified Date/Time:09/01/2018 17:13:53 Reading Location: [facility] Radiology Reading Room Procedure Note Interface, External [...] Report Verified Date/Time: 09/01/2018 17:13:53 Reading Location: [facility] Radiology Reading Room Performing Organization Address City/[facility] Phone Number [facility] * Rapid drug [...] [place] Cocaine 300 ng/mL LABORATORY Zvqgdekwxru71 ng/mL Qcjgsfespnuhfm131 ng/mL Barbiturate 200 ng/mL Owgcsigyfttli39 ng/mL Ljcrly068 ng/mL Methadone 300 ng/mL Amphetamine/ 1000 ng/mL Methamphetamine This assay provides an unconfirmed qualitative test result for the clinical management of patients in emergency situations. Chain of custody not maintained. Some uman-gbx-evjcevk medications, as well as adulterants, may cause inaccurate results. Clinical correlation should be applied. A more comprehensive drug screen or confirmation of a detected drug may be performed upon request. Performing Organization Address [facility] Phone Number [facility] [address] [place] [address] * ECHOCARDIOGRAM REPORT - SCAN (09/01/2018 10:22 AM CDT) Narrative Performed At * B-type Natriuretic Factor (BNP) (09/01/2018 8:56 AM CDT) BNP 16 0 - 100 pg/mL [facility] Specimen Blood Performing Organization Address [facility] Phone Number [facility] [address] [place], [place] [phone] * Blood gas, arterial (09/01/2018 8:52 AM CDT) pH, Arterial 7.39 7.35 - 7.[address] [facility] pCO2, Arterial 43 35 - 45 mm Hg [facility] pO2, Arterial 81 80 - 90 mm Hg [facility] O2 Sat, Arterial 95.7 (L) 96.0 - 97.0 % [facility] HCO3, Arterial 25 21 - 29 mmol/L [facility] Base Excess, Arterial 0.0 -2.0 - 3.0 mmol/L [facility] Patient Temperature 37.[address] [facility] [facility] FIO2 [address] [facility] [facility] Specimen Blood, Arterial Performing Organization Address City/State/Zipcode Phone Number [facility] [address] [place], [place] [address] * 2D Echo W/Doppler(CW/PW/Color) (09/01/2018 8:09 AM CDT) Ejection Fraction [facility] Specimen Narrative Performed At Transthoracic Echocardiography Report (TTE) [facility] Demographics [facility]ERCerana BeveragesKAISER FOUNDATION HOSPITAL Patient NameCHAPAT PIERSON Date of Study 09/01/2018 GenderMale Visit [id number] RaceUnknown Number [id number] Number Date of 1970 Referring Physician Age 47 year(s) Frontload Driver Francine Julio [facility] Interpreting Rama Butterfield MD. [...] of Study 09/01/2018 Gender Male Visit Number [id number] Race Unknown Room Number [id number] Number Date of 1970 Referring Physician Age 47 year(s) Frontload Driver Francine CM Interpreting Rmaa Butterfield MD. Physician Procedure Type of Study [...] CDT) Specimen Narrative Performed At FINAL REPORT [facility] MRA head and neck without contrast INDICATION: Syncope, ischemic stroke evaluation TECHNIQUE: 2-D and 3-D eeiq-gc-cmwudb MRA images of the intra- and extracranial [...] and vertebral arteries are not imaged. MRA [place]: A right posterior communicating artery provides substantial right SELF SEALING FUEL TANK REPAIRER supply with infundibular origin. There is no major branch occlusion or flow limiting stenosis in the [place] vessels. The left posterior communicating artery is patent. IMPRESSION: 1. Motion degraded neck MRA. 2. No hemodynamically significant carotid artery stenosis by NASCET criteria. 3. No significant stenosis in the imaged cervical vertebral arteries. 4. No [place] major branch occlusion or flow limiting stenosis. Signed: Perfecto Yung MD Report Verified Date/Time:08/31/2018 18:33:25 Reading Location: [facility] Radiology Reading Room Procedure Note Interface, External Ris In - 08/31/2018 6:35 PM CDT FINAL REPORT MRA head and neck without contrast INDICATION: Syncope, ischemic stroke evaluation TECHNIQUE: 2-D and 3-D lznm-yk-agymnr MRA images of the intra- and extracranial [...] and vertebral arteries are not imaged. MRA [place]: A right posterior communicating artery provides substantial right SELF SEALING FUEL TANK REPAIRER supply with infundibular origin. There is no major branch occlusion or flow limiting stenosis in the [place] vessels. The left posterior communicating artery is patent. IMPRESSION: 1. Motion degraded neck MRA. 2. No hemodynamically significant carotid artery stenosis by NASCET criteria. 3. No significant stenosis in the imaged cervical vertebral arteries. 4. No [place] major branch occlusion or flow limiting stenosis. Signed: Perfecto Yung MD Report Verified Date/Time: 08/31/2018 18:33:25 Reading Location: [facility] Radiology Reading Room Performing Organization Address City/State/Zipcode Phone Number [email or web address] * MRA head without IV contrast (08/31/2018 6:12 PM CDT) Specimen Narrative Performed At FINAL REPORT [email or web address] MRA head and neck without contrast INDICATION: Syncope, ischemic stroke evaluation TECHNIQUE: 2-D and 3-D ciol-il-cbcukz MRA images of the intra- and extracranial [...] and vertebral arteries are not imaged. MRA [place]: A right posterior communicating artery provides substantial right SELF SEALING FUEL TANK REPAIRER supply with infundibular origin. There is no major branch occlusion or flow limiting stenosis in the [place] vessels. The left posterior communicating artery is patent. IMPRESSION: 1. Motion degraded neck MRA. 2. No hemodynamically significant carotid artery stenosis by NASCET criteria. 3. No significant stenosis in the imaged cervical vertebral arteries. 4. No [place] major branch occlusion or flow limiting stenosis. Signed: Perfecto Yung MD Report Verified Date/Time:08/31/2018 18:33:25 Reading Location: [facility] Radiology Reading Room Procedure Note Interface, External Ris In - 08/31/2018 6:35 PM CDT FINAL REPORT MRA head and neck without contrast INDICATION: Syncope, ischemic stroke evaluation TECHNIQUE: 2-D and 3-D yvkn-no-lsoimb MRA images of the intra- and extracranial [...] and vertebral arteries are not imaged. MRA [place]: A right posterior communicating artery provides substantial right SELF SEALING FUEL TANK REPAIRER supply with infundibular origin. There is no major branch occlusion or flow limiting stenosis in the [place] vessels. The left posterior communicating artery is patent. IMPRESSION: 1. Motion degraded neck MRA. 2. No hemodynamically significant carotid artery stenosis by NASCET criteria. 3. No significant stenosis in the imaged cervical vertebral arteries. 4. No [place] major branch occlusion or flow limiting stenosis. Signed: Perfecto Yung MD Report Verified Date/Time: 08/31/2018 18:33:25 Reading Location: [facility] Radiology Reading Room Performing Organization Address City/State/Zipcode Phone Number [facility] * MR brain without IV contrast (08/31/2018 5:40 PM CDT) Specimen Narrative Performed At FINAL REPORT [facility] MRI brain without contrast INDICATION: Syncope TECHNIQUE: [...] MD Report Verified Date/Time:08/31/2018 18:33:47 Reading Location: [facility] Radiology Reading Room Procedure Note Interface, External [...] Report Verified Date/Time: 08/31/2018 18:33:47 Reading Location: [facility] Radiology Reading Room Performing Organization Address City/State/Zipcode Phone Number RIS * PERIPHERAL VASCULAR REPORT - SCAN (08/31/2018 2:33 PM CDT) Narrative Performed At * Venous doppler leg, right (08/31/2018 1:45 PM CDT) Specimen Narrative Performed At FINAL REPORT [facility] History: Right lower extremity pain/edema Comparison : [...] MD Report Verified Date/Time:08/31/2018 13:54:26 Reading Location: [facility] Radiology Reading Room Procedure Note Interface, External [...] Report Verified Date/Time: 08/31/2018 13:54:26 Reading Location: [facility] Radiology Reading Room Performing Organization Address City/State/Zipcode Phone Number [facility] * Troponin I (08/31/2018 8:48 AM CDT) [...] disease, and persistent tachyarrhythmia. Performing Organization Address City/[facility]/Zipcode Phone Number [facility] [address] [place] [address] * CBC with platelet count + automated diff (08/31/2018 5:50 AM CDT) Only the most recent of 2 results within the time period is included. WBC 5.4 4.0 - 10.0 K/L [facility] RBC 4.57 4.20 - 5.80 M/L [facility] Hemoglobin 13.8 13.0 - 16.8 GM/DL [facility] Hematocrit 41.7 36.0 - 50.0 % [facility] MCV 91.2 82.0 - 99.0 fL [place] [facility] MCH 30.2 27.0 - 33.0 [address] [facility] MCHC 33.1 32.0 - 36.0 GM/DL [facility] RDW 12.6 12.0 - 15.0 % [facility] Platelets 195 150 - 430 K/CU MM [place] [facility] MPV 10.0 6.0 - 11.5 fL [facility] nRBC 0 0 - 0 /100 [...] Granulocytes-Relative LABORATORY Specimen Blood Performing Organization Address City/[facility] Cent[facility] Phone Number [facility] [address] [place] [phone] * Hemoglobin A1c (08/31/2018 5:50 AM CDT) Hemoglobin A1C 10.5 (H) 4.3 - 6.1 % [facility] Specimen Blood Performing Organization Address [facility] Phone Number [facility] [address] [place] [phone] * Hepatic function panel (08/31/2018 5:50 AM CDT) Protein, Total 7.8 6.0 - 8.5 gm/dL [facility] Albumin 4.2 3.5 - 5.0 g/dL [facility] Total Bilirubin 0.4 0.1 - 1.2 mg/dL [facility] Bilirubin, Direct 0.1 0.0 - 0.4 mg/dL [facility] Alkaline Phosphatase 93 30 - 115 U/L [facility] AST 32 5 - 40 U/L [facility] ALT 43 5 - 50 U/L [facility] Specimen Blood Performing Organization Address [facility] Phone Number [facility] [address] [place] [phone] * Lipid panel (08/31/2018 5:50 AM CDT) Triglycerides 701 mg/dL [facility] Cholesterol 194 mg/dL [facility] HDL 33 mg/dL [facility] Specimen Blood Narrative Performed At Calculated LDL not valid if triglyceride >400 mg/dL [facility] Triglyceride Reference Range: LABORATORY Low Risk <150 [id number] High Risk 200-499 Very High Risk>=500 Cholesterol Reference Range: Low Risk <200 [id number] High Risk>240 HDL Cholesterol Reference Range: Low Risk >=60 High Risk <40 LDL Cholesterol Reference Range: Optimal<100 Near [id number] Mboibwbcpy795-221 Wuxh066-188 Very High >=190 Performing Organization Address [facility] Number [facility] [address] [place] [phone] * Basic metabolic panel (08/31/2018 5:50 AM CDT) Only the most recent of 2 results within the time period is included. Sodium 134 (L) 135 - 148 meq/L [facility] Potassium 4.3 3.6 - 5.5 meq/L [facility] Chloride 100 98 - 106 meq/L [facility] CO2 24 20 - 29 meq/L [facility] BUN 25 10 - 26 mg/dL [facility] Creatinine 1.07 0.50 - 1.20 mg/dL [facility] Glucose 303 (H) 70 - 110 mg/dL [facility] Calcium 9.3 8.5 - 10.5 mg/dL [facility] EGFR 75Comment: ESTIMATED GFR IS mL/min/1.73 sq m [place] NOT ACCURATE CREATININE LABORATORY CLEARANCE IN PREDICTING GLOMERULAR FILTRATION RATE. ESTIMATED GFR IS NOT APPLICABLE FOR DIALYSIS PATIENTS. Specimen Blood Performing Organization Address City/State/Zipcode Phone Number [facility] [address] [place] [address] * ED ECG Interpretation (08/30/2018 8:14 PM [...] CDT) Specimen Narrative Performed At FINAL REPORT [facility] TECHNIQUE: 2 views of the chest. COMPARISON: 03/09/2010 FINDINGS: The cardiac silhouette is within normal limits.Mediastinum is unremarkable. Lungs are clear.No acute skeletal abnormality. Soft tissues appear unremarkable. IMPRESSION: No acute cardiopulmonary disease. Signed: Newton Colindres MD Report Verified Date/Time:08/30/2018 19:25:14 Reading Location: [facility] Mammo Reading Room Procedure Note Interface, External Ris In - 08/30/2018 7:27 PM CDT FINAL REPORT TECHNIQUE: 2 views of the chest. COMPARISON: 03/09/2010 FINDINGS: The cardiac silhouette is within normal limits. Mediastinum is unremarkable. Lungs are clear. No acute skeletal abnormality. Soft tissues appear unremarkable. IMPRESSION: No acute cardiopulmonary disease. Signed: Newton Colindres MD Report Verified Date/Time: 08/30/2018 19:25:14 Reading Location: [facility] Reading Room Performing Organization Address City/State/Zipcode Phone Number [facility] * PT/INR (08/30/2018 7:08 PM CDT) Protime 10.2 9.3 - 12.0 sec [facility] INR 0.9 <=5.[address] [facility] Specimen Blood Narrative Performed At RECOMMENDED COUMADIN/WARFARIN INR THERAPY RANGES [facility] STANDARD DOSE: 2.0 - 3.0 Includes: PROPHYLAXIS for venous thrombosis, LABORATORY systemic embolization; TREATMENT for venous thrombosis and/or pulmonary embolus. HIGH RISK: Target INR is 2.5-3.5 for patients with mechanical heart valves. Final Information (Auto Output) Final Information (Auto Output) Performing Organization Address [facility] Phone Number [facility] [address] [place], [place] [phone] * Creatine Kinase (CK), Total and MB (not available at [facility] and [facility]) (08/30/2018 7:08 PM CDT) Total CK 186 40 - 250 U/L [facility] CK-MB 2.8 0.0 - 4.9 ng/mL [facility] MB Relative Index 1.5 % [facility] Specimen Blood Narrative Performed At CK-MB Reference Range: [place] <5 Normal LABORATORY 5-10 Borderline >10Abnormal Performing Organization Address [facility] Phone Number [email or web address] [address] [place], [place] [phone] after 05/19/2018 Insurance Payer Benefit Subscriber ID Type Phone Address Plan / Group [employer] - MEDICARE MGD CARE [employer] xxxxxxxx [phone] [address] [place] [address] HMO POS PPO Advance Directives For more information, please contact: [facility] [address] [place] [address] Date Inactivated Comments Code Status Date Activated 09/01/2018 9:48 PM Full Code 08/30/2018 9:57 PM This code status was determined by: Patient
--- NOTE | 2019-05-20 14:13 | NUR ---
RECEIVED REPORT FROM JORGE ALBERTO IN PACU AWAITING FOR PT TO ARRIVE TO FLOOR
[2019-05-20 14:18] VITALS: BP 134/91
--- NOTE | 2019-05-20 14:18 | NUR ---
RECEIVED PT TO FLOOR [id number]. PT C/O OF PAIN TO AMB 06/18. ON DILAUDID JEWEL STRIPPER PUMP VERIFIED PUMP WITH JORGE ALBERTO AT BEDSIDE PT ABD DRESSING IS DRY AND INTACT SED CONNECTED IV TO THE LEFT HAND 20 PATENT SITE IS CLEAN AND DRY PT IS IB 02 2L TOLERATING WELL FAMILY IS AT BEDSIDE, WILL CONTINUE TO CARE FOR PT AT THIS TIME SIDE RAILSX2, BED WHEELS LOCKED, CALL LIGHT IS WITHIN EASY REACH, INSTRUCTED TO CALL FOR ASSISTANCE IF NEEDED
[2019-05-20 14:24] VITALS: BP 134/91
[2019-05-20] MEDS ORDERED: BENZONATATE 100 MG CAP PO PRN (14:30)
[2019-05-20] MEDS ORDERED: FENOFIBRATE 145 MG TAB PO SCH (15:00)
[2019-05-20] MEDS: ONDANSETRON HCL INJ 2MG/ML 2ML 2 MG/ML VIAL IV PRN ×2 (16:00→20:20)
[2019-05-20 16:17] VITALS: BP 141/88
[2019-05-20] MEDS: SODIUM CHLORIDE 0.9% 1000ML 1,000 ML IV SCH (16:26)
[2019-05-20] MEDS ORDERED: NEOSTIGMINE 5 MG/5ML SYR ONE (16:49)
[2019-05-20] MEDS ORDERED: ROCURONIUM BROMIDE 10 MG/ML 5ML VIAL ONE (16:49)
[2019-05-20] MEDS ORDERED: DEXAMETHASONE SOD PHOS INJ 4 MG/ML VIAL ONE (16:49)
[2019-05-20] MEDS ORDERED: LIDOCAINE HCL 2% LOCAL INJ 5 ML SDV VIAL INJ ONE (16:49)
[2019-05-20] MEDS ORDERED: SEVOFLURANE INHAL SOLN 250 ML PEN BTL ONE (16:49)
[2019-05-20] MEDS ORDERED: ONDANSETRON HCL INJ 2MG/ML 2ML 2 MG/ML VIAL ONE (16:49)
[2019-05-20] MEDS ORDERED: GLYCOPYRROLATE INJ 1MG/ 5 ML SYR ONE (16:49)
[2019-05-20] MEDS ORDERED: PROPOFOL IV EMULSION 10 MG/ML 20 ML VIAL ONE (16:49)
[2019-05-20] MEDS: INSULIN REGULAR, HUMAN 100 UNIT/1 ML 3ML VIAL SQ SCH ×2 (16:50→21:00)
[2019-05-20] MEDS: FLUTICASONE PROPIONATE NASAL SPRAY NS SCH (16:55)
[2019-05-20] MEDS: METFORMIN HCL 500 MG TAB PO SCH (16:55)
[2019-05-20] MEDS: GABAPENTIN 300 MG CAP PO SCH (16:56)
[2019-05-20] MEDS: METOPROLOL SUCCINATE 50 MG TAB XL PO SCH (16:56)
[2019-05-20] MEDS ORDERED: FLUTICASONE PROPIONATE NS SCH (17:00)
[2019-05-20] MEDS ORDERED: SERTRALINE HCL 100 MG TAB PO SCH ×2 (17:00)
[2019-05-20] MEDS ORDERED: FENTANYL CITRATE/PF 100MCG/2 ML INJ ONE (17:13)
--- NOTE | 2019-05-20 19:05 | NUR ---
Report received at this time. Pt in bed in no apparent distress. is at bedside. Call light is in reach.
[2019-05-20 20:00] VITALS: BP 162/104
--- NOTE | 2019-05-20 20:17 | NUR ---
Pt c/o of nausea after using SUPERCALENDER OPERATOR pump. Pt requesting for different pain medication. Dr. Walsh paged at this time. Waiting bar machine operator production back.
[2019-05-20] MEDS: QUETIAPINE FUMARATE 100 MG TAB PO SCH (21:00)
[2019-05-20] MEDS ORDERED: PROMETHAZINE HCL (IM) 25 MG/ML VIAL IM PRN (22:45)
[2019-05-21] VITALS (11 sets, daily range): BP systolic 98–154; BP diastolic 64–97
[2019-05-21] MEDS: MORPHINE SULFATE INJ 4 MG/ML INJ 1ML IV PRN ×5 (01:03→22:20)
[2019-05-21 06:03] LABS: BASOPHILS % 0.2 % (0.0-1.0); EOSINOPHILS % 0.1 % (0.0-6.0); HEMATOCRIT 45.2 % (38.2-49.6); HEMOGLOBIN 15.3 g/dL (14.0-18.0); LYMPHOCYTES # (AUTO) 1.7 (1.0-3.2); LYMPHOCYTES % 16.3 % (18.0-39.1); MEAN CORPUSCULAR HEMOGLOBIN 30.5 pg (28-32); MEAN CORPUSCULAR HGB CONC 33.8 g/dL (31-35); MEAN CORPUSCULAR VOLUME 90.2 fL (81-99); MONOCYTES % 9.5 % (4.4-11.3); NEUTROPHILS # (AUTO) 7.7 (2.1-6.9); NEUTROPHILS % 73.5 % (38.7-80.0); PLATELET COUNT 236 x10e3/uL (140-360); RED BLOOD COUNT 5.01 x10e6/uL (4.3-5.7); RED CELL DISTRIBUTION WIDTH 12.1 % (11.7-14.4)
[2019-05-21 06:24] LABS: ANION GAP 16.5 mmol/L (8-16); BLOOD UREA NITROGEN 15 mg/dL (7-26); BUN/CREATININE RATIO 14 (6-25); CALCIUM 9.3 mg/dL (8.4-10.2); CARBON DIOXIDE 22 mmol/L (22-29); CHLORIDE 99 mmol/L (98-107); CREATININE, SERUM 1.04 mg/dL (0.72-1.25); EST GLOMERULAR FILTRATION RATE > 60 ML/MIN (60-); GLUCOSE 266 mg/dL (74-118); POTASSIUM 4.5 mmol/L (3.5-5.1); SODIUM 133 mmol/L (136-145)
--- NOTE | 2019-05-21 07:01 | NUR ---
Report given to SHARA Manjarrez at this time. Pt resting in bed in no apparent distress. Call light is in reach.
[2019-05-21] MEDS ORDERED: PANTOPRAZOLE SOD 40 MG TABEC PO SCH (07:30)
[2019-05-21] MEDS ORDERED: NON-FORMULARY MEDICATION (Pantoprazole Sod (Protonix) 40 MG) PO SCH (07:30)
--- NOTE | 2019-05-21 08:13 | Progress Note ---
DATE: SUBJECTIVE: This is a 48-year-old male status post incisional hernia repair. Currently, the patient had nausea, was given Phenergan, nausea is better. The patient's medications on board include acetaminophen, Klonopin, Depakote, fenofibrate, insulin, Ketorolac, metformin, Naloxone, olanzapine, ondansetron, pantoprazole, promethazine, quetiapine, and sertraline. The patient is currently stable. Pain is controlled. No bowel movements have been recorded. No gas either. No flatus either. The patient has been tolerating some clear liquid diets. No complaints noted at the time. OBJECTIVE: VITAL SIGNS: Temperature is 97.9, pulse of 108, respirations of 20, blood pressure is 154/97, pulse oximetry of 93%. HEENT: Normocephalic, atraumatic. Pupils are reactive to light and accommodation. CVS: S1, S2 normal. Regular rate and rhythm. ABDOMEN: Nontender, nondistended. Surgical scar midline. No bowel sounds heard yet. EXTREMITIES: No clubbing, no cyanosis, no edema. LABORATORY VALUES: White count is 10.46, hemoglobin of 15.3, hematocrit 45.2. Chemistry; sodium of 133, potassium of 4.5, BUN is 15, and creatinine of 1.04. Glucoses have been running in the 150 to 200. ASSESSMENT: 1. A 48-year-old male, status post surgery, postoperative day #1 for incisional hernia repair. 2. History of diabetes mellitus. Continue on sliding scale. 3. Hypertension. Continue antihypertensive. 4. History of bipolar disease. Continue on psych medications. Further recommendation per clinical course. The patient is recommended to get out of bed and walk. Surgery is following the patient. Continue to monitor the patient. Increase p.o. intake and possible discharge today. The patient is medically stable. MD KARISSA Louise/YI /[id number]
[2019-05-21] MEDS ORDERED: CLONAZEPAM0.5 MG PO (08:49)
[2019-05-21] MEDS ORDERED: SEROQUEL25 MG PO (08:49)
[2019-05-21] MEDS: INSULIN REGULAR, HUMAN 100 UNIT/1 ML 3ML VIAL SQ SCH ×4 (08:50→20:36)
[2019-05-21] MEDS: DEPAKOTE ER 500MG TAB(ONCE DAILY) PO SCH (08:51)
[2019-05-21] MEDS: FLUTICASONE PROPIONATE NASAL SPRAY NS SCH ×2 (08:51→17:00)
[2019-05-21] MEDS: METFORMIN HCL 500 MG TAB PO SCH ×3 (08:51→17:33)
[2019-05-21] MEDS: GABAPENTIN 300 MG CAP PO SCH ×2 (08:51→17:33)
[2019-05-21] MEDS: NIFEDIPINE CR 30 MG TAB PO SCH (08:51)
[2019-05-21] MEDS: FENOFIBRATE 48 MG TAB PO SCH (08:52)
[2019-05-21] MEDS: FENOFIBRATE 145 MG TAB PO SCH (08:52)
[2019-05-21] MEDS: METOPROLOL SUCCINATE 50 MG TAB XL PO SCH ×2 (08:52→17:33)
[2019-05-21] MEDS ORDERED: FENOFIBRATE 145 MG TAB PO SCH (09:00)
[2019-05-21] MEDS ORDERED: OLANZAPINE 5 MG TAB PO SCH (09:00)
[2019-05-21] MEDS ORDERED: PREDNISONE 10 MG TAB PO SCH (09:00)
[2019-05-21] MEDS: QUETIAPINE FUMARATE 100 MG TAB PO SCH ×3 (09:00→20:37)
[2019-05-21] MEDS ORDERED: SERTRALINE HCL 100 MG TAB PO SCH (09:00)
[2019-05-21] MEDS: SODIUM CHLORIDE 0.9% 1000ML 1,000 ML IV SCH ×3 (09:09→19:18)
[2019-05-21] MEDS: CLONAZEPAM 0.5 MG TAB PO SCH (09:09)
[2019-05-21] MEDS ORDERED: NOVOLOG100 UNITS1 SQ (17:39)
--- NOTE | 2019-05-21 17:40 | NUR ---
SPOKE WITH MD KING ABOUT PT WANTING TO RESTART HIS SCHEDULED NOVOLOG TID OF 41 UNITS MD HOLLAND RESUMPTION
--- NOTE | 2019-05-21 18:53 | NUR ---
Report received from SHARA Manjarrez. Pt resting comfortably in bed at this time. is present at bedside. Bed is in low locked position and call light is in reach.
--- NOTE | 2019-05-21 19:58 | NUR ---
Pt c/o severe abdominal pain at 08/18. BP 98/71. IV Toradol given as ordered. Will continue to monitor pt pain and blood pressure at this time.
--- NOTE | 2019-05-21 20:25 | NUR ---
Pt states pain continues to be 10/10 in abdomen. BP is 108/68. Will continue to monitor.
[2019-05-22] VITALS (8 sets, daily range): BP systolic 107–146; BP diastolic 63–95
[2019-05-22] MEDS: ACETAMINOPHEN/CODEINE 300MG - 30MG TAB PO PRN ×3 (00:01→19:23)
--- NOTE | 2019-05-22 00:05 | NUR ---
Dr. Rider, gleason gear generator for paged at this time regarding patients request for another one time dose of morphine at this time. Pt informed that a call was placed and waiting on return call.
--- NOTE | 2019-05-22 00:32 | NUR ---
Dr. Rider called back at this time. Received new orders to give one time dose of Morphine 4mg IV now. made aware of patients current BP and HR.
--- NOTE | 2019-05-22 00:44 | NUR ---
Went to inform patient of new order. Pt sleeping in bed at this time. Respirations are regular and even. No respiratory distress noted. Call light is in reach. Will continue to monitor patient closely.
[2019-05-22] MEDS ORDERED: MORPHINE SULFATE INJ 4 MG/ML INJ 1ML IV PRN (00:45)
--- NOTE | 2019-05-22 03:40 | NUR ---
Pt awake at this time, pt c/o LUQ pain /10 and requesting pain medication. Morphine given as ordered. BP 107/63 HR 86. Call light is in reach. Ice provided at this time for pt.
[2019-05-22] MEDS: MORPHINE SULFATE INJ 4 MG/ML INJ 1ML IV PRN ×3 (03:50→15:55)
--- NOTE | 2019-05-22 06:10 | NUR ---
Pt sleeping in bed at this time. Pt in no apparent distress. Respirations are regular and even. Call light is in reach of pt. Will continue to monitor.
--- NOTE | 2019-05-22 07:00 | NUR ---
Report given to SHARA Manjarrez at this time.
--- NOTE | 2019-05-22 07:22 | NUR ---
Per Dr. Rider change order of pt Metoprolol to once daily. Order changed at this time.
[2019-05-22] MEDS ORDERED: INSULIN GLARGINE SC SCH (07:30)
[2019-05-22] MEDS: INSULIN REGULAR, HUMAN 100 UNIT/1 ML 3ML VIAL SQ SCH (07:30)
[2019-05-22] MEDS ORDERED: INSULIN LISPRO 100 UNIT/1 ML 3ML VIAL SQ SCH (08:00)
[2019-05-22] MEDS: METFORMIN HCL 500 MG TAB PO SCH ×3 (08:33→17:11)
[2019-05-22] MEDS: DEPAKOTE ER 500MG TAB(ONCE DAILY) PO SCH (08:33)
[2019-05-22] MEDS: CLONAZEPAM 0.5 MG TAB PO SCH (08:33)
[2019-05-22] MEDS: FLUTICASONE PROPIONATE NASAL SPRAY NS SCH ×2 (08:33→16:20)
[2019-05-22] MEDS: FENOFIBRATE 48 MG TAB PO SCH (08:34)
[2019-05-22] MEDS: QUETIAPINE FUMARATE 100 MG TAB PO SCH ×3 (08:34→21:02)
[2019-05-22] MEDS: GABAPENTIN 300 MG CAP PO SCH ×2 (08:34→17:11)
[2019-05-22] MEDS: FENOFIBRATE 145 MG TAB PO SCH (08:34)
[2019-05-22] MEDS: METOPROLOL SUCCINATE 50 MG TAB XL PO SCH (08:34)
[2019-05-22] MEDS: NIFEDIPINE CR 30 MG TAB PO SCH (09:00)
--- NOTE | 2019-05-22 11:03 | Progress Note ---
DATE: SUBJECTIVE: The patient is a 48-year-old male who comes in with status post incisional hernia repair by Dr. Walsh. Yesterday, the patient had intractable pain at nighttime, had received two doses of morphine [id number]. Currently, the patient's pain is better, sleepy. No chest pain. No shortness of breath and abdominal pain is better. OBJECTIVE: VITAL SIGNS: Temperature is 97.7, pulse of 85, respirations of 20, blood pressure is 113/66, pulse oximetry of 95% on room air. HEENT: Normocephalic, atraumatic. No icterus present. CVS: S1, S2 normal. Regular rate and rhythm. ABDOMEN: Nondistended, nontender. Bowel sounds are positive. Scar midline with slight amount of seepage noted. EXTREMITIES: No clubbing, no cyanosis, no edema. LABORATORY VALUES: The patient's white count is 10.46, hemoglobin 15.3, hematocrit 45.2. Chemistries, all within normal limits. Creatinine is 1.04. Microbiology, none available. ASSESSMENT: 1. This is a 48-year-old male, status post incisional hernia repair, postoperative day #2. 2. History of diabetes mellitus. 3. Hypertension. 4. Pain control. 5. History of bipolar disease. PLAN: Continue all home medication. Pain management to be continued. Possible discharge tomorrow. Can increase from clear liquids to full liquid diet today and again discharge tomorrow. MD KARISSA Louise/MODL /[id number]
[2019-05-22] MEDS ORDERED: tylenol #4 PO (11:14)
[2019-05-22] MEDS: NOVOLOG SC SCH ×2 (11:30→16:20)
--- NOTE | 2019-05-22 11:49 | NUR ---
paging md morrow at this time for dc hold per pt request pt does not feel comfortable going home today states he has to climb to the 3rd floor and states he is to weak at time
--- NOTE | 2019-05-22 14:35 | NUR ---
spoke with md morrow about pt not wanting to go home today. cancelled dc
--- NOTE | 2019-05-22 21:09 | NUR ---
Pt sleeping comfortably in bed at this time. Respirations are regular and even. is present at bedside. Call light is in reach.
[2019-05-23] VITALS: BP 139/81
[2019-05-23] MEDS: MORPHINE SULFATE INJ 4 MG/ML INJ 1ML IV PRN ×4 (00:05→13:35)
[2019-05-23] MEDS: ACETAMINOPHEN/CODEINE 300MG - 30MG TAB PO PRN ×4 (02:24→15:57)
[2019-05-23 04:00] VITALS: BP 129/85
--- NOTE | 2019-05-23 07:15 | NUR ---
Report given SHARA Ansari at this time.
--- NOTE | 2019-05-23 07:19 | NUR ---
Rcvd patient in report this am. Patient is asleep in bed at this time.
[2019-05-23] MEDS: NOVOLOG SC SCH ×2 (07:30→11:30)
[2019-05-23 07:54] VITALS: BP 151/95
[2019-05-23 08:01] VITALS: BP 151/95
[2019-05-23] MEDS: GABAPENTIN 300 MG CAP PO SCH (08:20)
[2019-05-23] MEDS: FENOFIBRATE 48 MG TAB PO SCH (08:20)
[2019-05-23] MEDS: METOPROLOL SUCCINATE 50 MG TAB XL PO SCH (08:20)
[2019-05-23] MEDS: NIFEDIPINE CR 30 MG TAB PO SCH (08:20)
[2019-05-23] MEDS: FENOFIBRATE 145 MG TAB PO SCH (08:20)
[2019-05-23] MEDS: CLONAZEPAM 0.5 MG TAB PO SCH (08:20)
[2019-05-23] MEDS: DEPAKOTE ER 500MG TAB(ONCE DAILY) PO SCH (08:20)
[2019-05-23] MEDS: QUETIAPINE FUMARATE 100 MG TAB PO SCH (08:20)
[2019-05-23] MEDS: METFORMIN HCL 500 MG TAB PO SCH ×2 (08:20→12:03)
[2019-05-23] MEDS ORDERED: INSULIN GLARGINE SC SCH (09:00)
[2019-05-23] MEDS: FLUTICASONE PROPIONATE NASAL SPRAY NS SCH (09:00)
--- NOTE | 2019-05-23 09:43 | NUR ---
Patient is AAOx3. Patient lung mensah clear to auscultation. Bowel sounds present x4 and active. No edema noted. Patient had a BM yesterday. PRN pain meds given. medial abdominal dressing clean and dry. Patient ambulates on his own. No s/s of distress noted. left hand IV in place
[2019-05-23 12:39] VITALS: BP 142/99
[2019-05-23] MEDS: ONDANSETRON HCL INJ 2MG/ML 2ML 2 MG/ML VIAL IV PRN (14:31)
--- NOTE | 2019-05-23 14:39 | NUR ---
Removed IV at this time. Pressure dressing applied.
--- NOTE | 2019-05-23 18:25 | Discharge Summary ---
ADMISSION DIAGNOSES: Recurrent incisional hernia, abdominal wall suture granuloma. DISCHARGE DIAGNOSES: Recurrent incisional hernia, abdominal wall suture granuloma. PRINCIPAL PROCEDURE: 1. Repair of recurrent incisional hernia. 2. Excision of abdominal wall suture granuloma. HISTORY OF PRESENT ILLNESS: The patient is a 48-year-old male, who has had previous repair of hernias and multiple previous abdominal surgeries, who presented with complaints of pain and bulge in the upper abdomen. HOSPITAL COURSE: The patient was admitted to the hospital, underwent surgery the same day as admission. He had repair of recurrent incisional hernia and then with the excision of abdominal wall suture granuloma. Postoperatively, the patient was stable. He did complain of incisional pain. Otherwise, he was started on diet, he tolerated without problem. He remained afebrile. Vital signs are normal. He was discharged home on the 3rd postop day. At time of discharge, he is afebrile, tolerating diet. Wound was clean. Discharge medication was Tylenol #40. We will continue him on same home medications as he took prior to admission. Follow up with Dr. Walsh in approximately one week after discharge to home in satisfactory condition on regular diet. MD ARYAN Araya/YI /[id number]
== END 2019-05-23 15:58 | disposition home or self-care (01) | DRG 354 ==
LOC: OR 10:13 → PACU V 13:45 → MED/SURG 14:12
PROVIDERS: ADMIT Surgery; ATTEND Surgery
PROC: 0WQF0ZZ Repair Abdominal Wall, Open Approach (ICD-10-PCS; 2019-05-20)
PROC: 0DQV0ZZ Repair Mesentery, Open Approach (ICD-10-PCS; principal; 2019-05-20 12:30)
DX: K43.2 Incisional hernia without obstruction or gangrene (principal); T81.43XA Infection following a procedure, organ and space surgical site, initial encounter; Z18.89 Other specified retained foreign body fragments; M60.25 Foreign body granuloma of soft tissue, not elsewhere classified, thigh; F31.9 Bipolar disorder, unspecified; E11.9 Type 2 diabetes mellitus without complications; I10 Essential (primary) hypertension; E78.00 Pure hypercholesterolemia, unspecified; G47.33 Obstructive sleep apnea (adult) (pediatric)
CPT/HCPCS: 36415; 80048; 80053; 82948; 85025; 88304; 93005; J0690; J1100; J1817; J1885; J2001; J2250; J2270; J2405; J2550; J3010; J7030; J7512

== ENCOUNTER → 2020-06-22 | Outpatient (CLI) | payer MEDICARE ==
[~2020-06-22] MED LIST changes: +NOVOLOG100 UNITS1 SQ; +tylenol #4 PO
== END ==
LOC: CARD 11:37
PROVIDERS: ATTEND Family Medicine
DX: R60.0 Localized edema (principal)
CPT/HCPCS: 93925

== ENCOUNTER → 2020-08-15 | Outpatient (CLI) | payer MEDICARE | LOC: RAD 11:04 | PROVIDERS: ATTEND Family Medicine | DX: R60.0 Localized edema (principal) | CPT/HCPCS: 93970 ==

== ENCOUNTER 2022-07-14 13:54 | Emergency (ER) | payer MEDICARE ==
[~2022-07-14] VITALS: Ht 190.5 cm; Wt 115.7 kg
[2022-07-14] MEDS ORDERED: SODIUM CHLORIDE 0.9% 1000ML 1,000 ML IV STA (14:16)
[2022-07-14] MEDS ORDERED: MECLIZINE HCL 12.5 MG TAB PO ONE (14:30)
[2022-07-14] MEDS ORDERED: ONDANSETRON HCL INJ 2MG/ML 2ML 2 MG/ML VIAL IV NR ×2 (14:30→16:30)
[2022-07-14 14:48] LABS: ALANINE AMINOTRANSFERASE 32 IU/L (0-55); ALBUMIN 4.1 g/dL (3.5-5.0); ALBUMIN/GLOBULIN RATIO 1.1 (0.8-2.0); ALKALINE PHOSPHATASE 106 IU/L (40-150); ANION GAP 18.4 mmol/L (8-16); BLOOD UREA NITROGEN 10 mg/dL (7-26); BUN/CREATININE RATIO 12 (6-25); CALCIUM 9.4 mg/dL (8.4-10.2); CARBON DIOXIDE 21 mmol/L (22-29); CHLORIDE 103 mmol/L (98-107); CREATINE KINASE 183 IU/L (30-200); CREATININE, SERUM 0.86 mg/dL (0.72-1.25); GLUCOSE 154 mg/dL (74-118); LIPASE 59 U/L (8-78); MAGNESIUM 2.1 MG/DL (1.3-2.1); POTASSIUM 4.4 mmol/L (3.5-5.1); SODIUM 138 mmol/L (136-145)
[2022-07-14 14:51] LABS: BASOPHILS % 0.3 % (0.0-1.0); EOSINOPHILS # (AUTO) 0.1 (0.0-0.4); EOSINOPHILS % 0.9 % (0.0-6.0); HEMATOCRIT 51.5 % (38.2-49.6); HEMOGLOBIN 16.7 g/dL (14.0-18.0); LYMPHOCYTES # (AUTO) 2.2 (1.0-3.2); LYMPHOCYTES % 29.1 % (18.0-39.1); MEAN CORPUSCULAR HEMOGLOBIN 30.4 pg (28-32); MEAN CORPUSCULAR HGB CONC 32.4 g/dL (31-35); MEAN CORPUSCULAR VOLUME 93.6 fL (81-99); MONOCYTES # (AUTO) 0.7 (0.2-0.8); MONOCYTES % 9.1 % (4.4-11.3); NEUTROPHILS # (AUTO) 4.6 (2.1-6.9); NEUTROPHILS % 60.2 % (38.7-80.0); PLATELET COUNT 227 x10e3/uL (140-360)
[2022-07-14 15:07] LABS: INR 0.9
[2022-07-14 15:09] LABS: PARTIAL THROMBOPLASTIN TIME 20.9 seconds (23.8-35.5)
[2022-07-14] MEDS ORDERED: IOPAMIDOL 370 MG/ML 100 ML INFUS..BTL INJ ONE (15:10)
[2022-07-14] MEDS ORDERED: MECLIZINE HCL12.5 MG PO (17:12)
[2022-07-14] MEDS ORDERED: ONDANSETRON ODT4 MG PO (17:12)
[2022-07-14 17:22] VITALS: BP 133/81
== END 2022-07-14 17:24 | disposition home or self-care (01) ==
LOC: ER 14:17
DX: R42 Dizziness and giddiness (principal); R51.9 Headache, unspecified; R14.0 Abdominal distension (gaseous); E11.9 Type 2 diabetes mellitus without complications; E78.5 Hyperlipidemia, unspecified; F41.9 Anxiety disorder, unspecified; Z20.822 Contact with and (suspected) exposure to COVID-19; Z85.07 Personal history of malignant neoplasm of pancreas
CPT/HCPCS: 0223U; 36415; 70450; 71045; 74177; 80053; 82550; 82553; 82948; 83690; 83735; 84484; 85025; 85610; 85730; 93005; 99283; C9113; J2405; J7030; J8597; Q9967

== ENCOUNTER 2023-03-30 14:14 | Inpatient (IN) | payer MEDICARE ==
[~2023-03-30] VITALS: Ht 190.5 cm; Wt 108.9 kg
[~2023-03-30 14:14] MED LIST changes: +MECLIZINE HCL12.5 MG PO; +ONDANSETRON ODT4 MG PO
[2023-03-30] MEDS ORDERED: SODIUM CHLORIDE 0.9% 1000ML 1,000 ML IV STA ×2 (15:04→21:47)
[2023-03-30 15:26] LABS: BASOPHILS % 0.2 % (0.0-1.0); EOSINOPHILS % 0.1 % (0.0-6.0); HEMATOCRIT 51.6 % (38.2-49.6); HEMOGLOBIN 17.2 g/dL (14.0-18.0); LYMPHOCYTES # (AUTO) 1.9 (1.0-3.2); LYMPHOCYTES % 14.6 % (18.0-39.1); MEAN CORPUSCULAR HEMOGLOBIN 30.7 pg (28-32); MEAN CORPUSCULAR HGB CONC 33.3 g/dL (31-35); MONOCYTES % 7.3 % (4.4-11.3); NEUTROPHILS # (AUTO) 10.2 (2.1-6.9); NEUTROPHILS % 77.3 % (38.7-80.0); PLATELET COUNT 210 x10e3/uL (140-360); RED BLOOD COUNT 5.61 x10e6/uL (4.3-5.7); RED CELL DISTRIBUTION WIDTH 12.1 % (11.7-14.4)
[2023-03-30 15:41] LABS: INR 0.92; PROTHROMBIN TIME 12.9 seconds (11.9-14.5)
[2023-03-30 15:42] LABS: PARTIAL THROMBOPLASTIN TIME 27.8 seconds (23.8-35.5)
[2023-03-30 15:50] LABS: ALANINE AMINOTRANSFERASE 30 IU/L (0-55); ALBUMIN 4.3 g/dL (3.5-5.0); ALKALINE PHOSPHATASE 100 IU/L (40-150); ANION GAP 18.6 mmol/L (8-16); BLOOD UREA NITROGEN 16 mg/dL (7-26); BUN/CREATININE RATIO 12 (6-25); CALCIUM 10.3 mg/dL (8.4-10.2); CARBON DIOXIDE 23 mmol/L (22-29); CHLORIDE 99 mmol/L (98-107); CREATINE KINASE 192 IU/L (30-200); CREATININE, SERUM 1.35 mg/dL (0.72-1.25); GLUCOSE 291 mg/dL (74-118); LIPASE 66 U/L (8-78); MAGNESIUM 2.2 MG/DL (1.3-2.1); POTASSIUM 4.6 mmol/L (3.5-5.1); SODIUM 136 mmol/L (136-145)
[2023-03-30] MEDS ORDERED: ACETAMINOPHEN 325 MG TAB PO ONE (16:00)
[2023-03-30] MEDS ORDERED: KETOROLAC TROMETHAMINE 30 MG/ML VIAL IV ONE (17:30)
[2023-03-30] MEDS ORDERED: ONDANSETRON HCL INJ 2MG/ML 2ML 2 MG/ML VIAL IV ONE (17:30)
[2023-03-30] MEDS ORDERED: IOPAMIDOL 370 MG/ML 100 ML INFUS..BTL INJ ONE (17:37)
[2023-03-30] MEDS ORDERED: DEXTROSE 50% SYRINGE 50 ML IV PRN (18:30)
[2023-03-30 18:36] LABS: CLARITY,URINE SL CLOUDY (CLEAR); COLOR,URINE YELLOW (YELLOW); KETONES,URINE TRACE (NEGATIVE); LEUKOCYTE ESTERASE ,URINE NEGATIVE (NEGATIVE); NITRITE,URINE NEGATIVE (NEGATIVE); PROTEIN,URINE DIPSTICK 2+ (NEGATIVE); URINE UROBILINOGEN 0.2 mg/dL (0.2 - 1)
[2023-03-30 18:48] LABS: RBC,URINE 0-5 /HPF (0-5)
[2023-03-30] MEDS: SODIUM CHLORIDE 0.9% 1000ML 1,000 ML IV SCH (19:18)
[2023-03-30] MEDS: HYDROCODONE/APAP 5MG-325MG TAB PO PRN (19:39)
[2023-03-30] MEDS: INSULIN LISPRO 100 UNIT/1 ML 3ML VIAL SQ SCH (21:08)
[2023-03-30] MEDS ORDERED: KETOROLAC TROMETHAMINE 30 MG/ML VIAL IV STA (21:47)
[2023-03-30] MEDS ORDERED: DIPHENHYDRAMINE HCL INJ 50 MG/ML VIAL IV STA (21:47)
[2023-03-30] MEDS ORDERED: METHYLPREDNISOLONE SOD SUCC 125 MG/2ML VIAL IV STA (21:47)
[2023-03-30] MEDS ORDERED: METOCLOPRAMIDE HCL 10 MG/2ML VIAL IV STA (21:47)
[2023-03-30] MEDS ORDERED: METOCLOPRAMIDE HCL 10 MG/2ML VIAL ONE (21:50)
[2023-03-30] MEDS ORDERED: DIPHENHYDRAMINE HCL INJ 50 MG/ML VIAL ONE (21:51)
[2023-03-30] MEDS ORDERED: FENTANYL CITRATE/PF 100MCG/2 ML INJ ONE (21:51)
[2023-03-30] MEDS ORDERED: FENTANYL CITRATE/PF 100MCG/2 ML INJ IV ONE (22:00)
[2023-03-30 22:53] LABS: CREATINE KINASE 131 IU/L (30-200)
[2023-03-31] MEDS ORDERED: ACETAMINOPHEN 325 MG TAB PO ONE (01:15)
[2023-03-31] MEDS ORDERED: LABETALOL HCL 5 MG/ML 20ML VIAL IV PRN (02:30)
[2023-03-31] MEDS: Morphine 4mg INJECTION 4 MG/ML INJ IV PRN ×4 (02:41→21:11)
[2023-03-31] MEDS: ONDANSETRON HCL INJ 2MG/ML 2ML 2 MG/ML VIAL IV PRN ×4 (02:41→21:10)
[2023-03-31 03:23] LABS: BASOPHILS % 0.1 % (0.0-1.0); HEMOGLOBIN 15.1 g/dL (14.0-18.0); LYMPHOCYTES # (AUTO) 0.9 (1.0-3.2); LYMPHOCYTES % 9.9 % (18.0-39.1); MEAN CORPUSCULAR HEMOGLOBIN 30.4 pg (28-32); MEAN CORPUSCULAR HGB CONC 32.8 g/dL (31-35); MEAN CORPUSCULAR VOLUME 92.6 fL (81-99); MONOCYTES # (AUTO) 0.1 (0.2-0.8); MONOCYTES % 0.8 % (4.4-11.3); NEUTROPHILS # (AUTO) 7.7 (2.1-6.9); NEUTROPHILS % 88.9 % (38.7-80.0); PLATELET COUNT 162 x10e3/uL (140-360); RED BLOOD COUNT 4.97 x10e6/uL (4.3-5.7)
[2023-03-31] MEDS ORDERED: ACETAMINOPHEN 1000 MG/100 ML IV STA (03:44)
[2023-03-31] MEDS ORDERED: ACETAMINOPHEN 1000 MG/100 ML 100 ML IV ONE (03:49)
[2023-03-31 04:05] LABS: ALBUMIN 3.6 g/dL (3.5-5.0); ANION GAP 17.6 mmol/L (8-16); CALCIUM 9.2 mg/dL (8.4-10.2); CREATININE, SERUM 1.18 mg/dL (0.72-1.25); POTASSIUM 4.6 mmol/L (3.5-5.1)
[2023-03-31] MEDS: SODIUM CHLORIDE 0.9% 1000ML 1,000 ML IV SCH ×2 (04:15→16:47)
[2023-03-31] MEDS: INSULIN LISPRO 100 UNIT/1 ML 3ML VIAL SQ SCH ×3 (04:30→16:56)
[2023-03-31] MEDS ORDERED: KETOROLAC TROMETHAMINE 30 MG/ML VIAL IV ONE (13:00)
[2023-03-31] MEDS ORDERED: INSULIN LISPRO 100 UNIT/1 ML 3ML VIAL SQ ONE ×2 (13:00→18:50)
[2023-03-31] MEDS ORDERED: PREGABALIN 50 MG CAP PO ONE (14:00)
[2023-03-31 16:06] VITALS: BP 154/89; PULSE 87; RESP 17; TEMP 98; O2SAT 98
[2023-03-31 16:10] VITALS: BP 154/89; PULSE 87; RESP 17; TEMP 98; O2SAT 98
[2023-03-31 16:14] VITALS: BP 154/89; PULSE 87; RESP 17; TEMP 98; O2SAT 98
[2023-03-31 16:30] VITALS: BP 154/89; PULSE 87; RESP 17; TEMP 98; O2SAT 98
[2023-03-31] MEDS: METHOCARBAMOL 500 MG TAB PO SCH ×2 (16:48→21:11)
[2023-03-31] MEDS ORDERED: KETOROLAC TROMETHAMINE 30 MG/ML VIAL IV SCH (17:00)
[2023-03-31] MEDS ORDERED: KETOROLAC TROMETHAMINE 30 MG/ML VIAL IV PRN (18:15)
[2023-03-31] MEDS ORDERED: DEXTROSE 50% SYRINGE 50 ML IV PRN (18:15)
[2023-03-31] MEDS ORDERED: METHYLPREDNISOLONE SOD SUCC 125 MG/2ML VIAL IV ONE (18:50)
[2023-03-31 21:00] VITALS: BP 150/98; PULSE 92; RESP 20; TEMP 98.3; O2SAT 96
[2023-03-31 21:10] VITALS: BP 150/98; PULSE 92; RESP 20; TEMP 98.3; O2SAT 96
[2023-03-31] MEDS: MELATONIN 5 MG TABLET PO SCH (21:10)
[2023-03-31] MEDS: INSULIN GLARGINE 100 UNITS/ML VIAL SQ SCH (21:22)
[2023-04-01] MEDS: HYDROCODONE/APAP 5MG-325MG TAB PO PRN (00:42)
[2023-04-01] MEDS: SODIUM CHLORIDE 0.9% 1000ML 1,000 ML IV SCH ×4 (00:44→20:15)
[2023-04-01 01:54] VITALS: BP 145/91; PULSE 88; RESP 20; TEMP 98; O2SAT 95
[2023-04-01] MEDS: METHOCARBAMOL 500 MG TAB PO SCH ×3 (05:38→22:46)
[2023-04-01] MEDS: INSULIN LISPRO 100 UNIT/1 ML 3ML VIAL SQ SCH ×5 (05:42→22:51)
[2023-04-01 08:35] VITALS: BP 149/92; PULSE 87; RESP 21; TEMP 98; O2SAT 96
[2023-04-01] MEDS: Morphine 4mg INJECTION 4 MG/ML INJ IV PRN ×3 (09:32→22:51)
[2023-04-01] MEDS: ONDANSETRON HCL INJ 2MG/ML 2ML 2 MG/ML VIAL IV PRN ×2 (09:32→15:48)
[2023-04-01 11:14] VITALS: BP 149/92; PULSE 87; RESP 21; TEMP 98; O2SAT 96
[2023-04-01 12:08] VITALS: BP 158/96; PULSE 90; RESP 21; TEMP 98.9; O2SAT 96
[2023-04-01 16:39] VITALS: BP 133/70; PULSE 91; RESP 21; TEMP 98.1; O2SAT 96
[2023-04-01] MEDS ORDERED: HYDROMORPHONE 1MG/1ML INJ IV ONE (17:30)
[2023-04-01] MEDS: MELATONIN 5 MG TABLET PO SCH (21:00)
[2023-04-01] MEDS ORDERED: TEMAZEPAM 15 MG CAP PO SCH (21:00)
[2023-04-01] MEDS: INSULIN GLARGINE 100 UNITS/ML VIAL SQ SCH (22:51)
[2023-04-02] VITALS: BP 150/93; PULSE 92; RESP 20; TEMP 97.7; O2SAT 95
[2023-04-02] MEDS ORDERED: TRAZODONE HCL 50 MG TAB PO ONE ×2 (00:15→21:00)
[2023-04-02] MEDS: Morphine 4mg INJECTION 4 MG/ML INJ IV PRN ×2 (03:30→09:48)
[2023-04-02 04:14] VITALS: BP 150/80; PULSE 93; RESP 20; TEMP 97.6; O2SAT 96
[2023-04-02] MEDS: SODIUM CHLORIDE 0.9% 1000ML 1,000 ML IV SCH ×2 (06:15→12:12)
[2023-04-02] MEDS: METHOCARBAMOL 500 MG TAB PO SCH ×2 (06:50→14:00)
[2023-04-02] MEDS: HYDROCODONE/APAP 5MG-325MG TAB PO PRN (06:50)
[2023-04-02 07:55] VITALS: BP 162/99; PULSE 76; RESP 22; TEMP 98.4; O2SAT 97
[2023-04-02] MEDS: INSULIN LISPRO 100 UNIT/1 ML 3ML VIAL SQ SCH ×3 (09:32→17:01)
[2023-04-02] MEDS: ONDANSETRON HCL INJ 2MG/ML 2ML 2 MG/ML VIAL IV PRN (09:34)
[2023-04-02 09:39] VITALS: BP 162/99; PULSE 76; RESP 22; TEMP 98.4; O2SAT 97
[2023-04-02 11:38] VITALS: BP 135/82; PULSE 77; RESP 21; TEMP 97.4; O2SAT 97
[2023-04-02] MEDS ORDERED: HYDROMORPHONE 1MG/1ML INJ IV ONE (15:15)
[2023-04-02 16:40] VITALS: BP 150/93; PULSE 80; RESP 18; TEMP 98.6; O2SAT 97
== END 2023-04-02 19:21 | disposition home or self-care (01) | DRG 552 ==
LOC: VACCPMC 14:25 → ERHOLD 18:17 → OBSVTOIN 03-31 01:19 → MED/SURG 03-31 12:00
PROVIDERS: ADMIT Family Medicine; ATTEND Family Medicine
DX: M50.31 Other cervical disc degeneration, high cervical region (principal); M47.22 Other spondylosis with radiculopathy, cervical region; R51.9 Headache, unspecified; M43.17 Spondylolisthesis, lumbosacral region; E11.40 Type 2 diabetes mellitus with diabetic neuropathy, unspecified; I10 Essential (primary) hypertension; E78.5 Hyperlipidemia, unspecified; R00.0 Tachycardia, unspecified; F31.9 Bipolar disorder, unspecified; G47.33 Obstructive sleep apnea (adult) (pediatric); M48.061 Spinal stenosis, lumbar region without neurogenic claudication; M48.02 Spinal stenosis, cervical region; E11.65 Type 2 diabetes mellitus with hyperglycemia; Z79.84 Long term (current) use of oral hypoglycemic drugs; Z79.82 Long term (current) use of aspirin; Z79.4 Long term (current) use of insulin; Z85.07 Personal history of malignant neoplasm of pancreas; Z20.822 Contact with and (suspected) exposure to COVID-19
CPT/HCPCS: 0223U; 36415; 70496; 70498; 70551; 71045; 72141; 72148; 80053; 81001; 82550; 82553; 82948; 83690; 83735; 84484; 85025; 85610; 85730; 86140; 93005; 96372; 99285; G0378; J1170; J1200; J1815; J1885; J2270; J2405; J2765; J2930; J7030; Q9967

== ENCOUNTER 2025-01-21 06:51 | Emergency (ER) | payer MEDICARE ==
[~2025-01-21] VITALS: Ht 190.5 cm; Wt 108.9 kg
[~2025-01-21 06:51] MED LIST changes: +ACETAMINOPHEN-1 EAC4 PO; +NAPROXEN500 M1 PO
[2025-01-21 07:17] VITALS: PULSE 97; RESP 15; TEMP 98
[2025-01-21] MEDS: TETANUS/DIPHTHERIA TOX ADULT 0.5 ML SYR IM ONE (08:32)
[2025-01-21] MEDS: KETOROLAC TROMETHAMINE 30 MG/ML VIAL IM STA (08:33)
[2025-01-21] MEDS ORDERED: ULTRAM 50MG50 MG PO (09:25)
[2025-01-21 10:03] VITALS: BP 149/94; PULSE 93; RESP 18; TEMP 98.2; O2SAT 99
== END 2025-01-21 10:11 | disposition home or self-care (01) ==
LOC: ER 06:54
DX: S22.42XA Multiple fractures of ribs, left side, initial encounter for closed fracture (principal); Y04.0XXA Assault by unarmed brawl or fight, initial encounter; Y92.89 Other specified places as the place of occurrence of the external cause; I10 Essential (primary) hypertension; E11.9 Type 2 diabetes mellitus without complications; E78.5 Hyperlipidemia, unspecified; Z85.07 Personal history of malignant neoplasm of pancreas
CPT/HCPCS: 70450; 71250; 72125; 72128; 90471; 90714; 99284; J1885